=== PATIENT | male | born 1935 | race Caucasian/White ===

== ENCOUNTER 2017-01-25 10:44 | Inpatient (IN) | payer MEDICARE ==
--- NOTE | 2017-01-25 11:34 | EDM.PDOC ---
ED HPI GENERAL MEDICAL PROBLEM - General Chief Complaint: Gastrointestinal Problem Stated Complaint: RECTAL BLEED Time Seen by Provider: 01/25/17 10:44 Source of Information: Reports: Patient, Family History Limitations: Reports: No Limitations - History of Present Illness INITIAL COMMENTS - FREE TEXT/NARRATIVE: 81 y.o.w.m come to the ed due top bright red blood in his urine X 2 this am. One week ago0, he ate a lot of raspberries. He last colonoscopy was 01/17/2016 and found to be normal. He has h/o vertigo and feels dizzy at times. No N/V Medical Assistant Per Diem CP or any other acute medical issues at this time. Onset Date: 01/25/17 Onset Time: 07:00 Duration: Hour(s): Location: Reports: Abdomen Quality: Reports: Other (bright red blood pe rectum) Severity: Moderate Context: Reports: Other (Pt is on Coumadine ) Associated Symptoms: Reports: Other (Dizzy. H/O vertigo) Treatments EXPORT PACKER: Reports: Aspirin, Other Medication(s) (coumadine) Denies pain when asked Pain Score (Numeric/FACES): 0 - Related Data Allergies Allergy/AdvReac Type Severity Reaction Status Date / Time meclizine Allergy Confusion Verified 01/25/17 11:32 Penicillins Allergy Hives Verified 01/25/17 11:32 Home Meds: Home Meds Aspirin [Ecotrin] 81 mg PO DAILY 03/17/14 [History] Carvedilol [Coreg] 25 mg PO BID 03/17/14 [History] Nitroglycerin [Nitrostat] 0.4 mg SL ASDIRECTED PRN 03/17/14 [History] Omeprazole [Prilosec] 20 mg PO BEDTIME 03/17/14 [History] Potassium Chloride 10 meq PO BID 03/17/14 [History] Warfarin [Coumadin] 5 mg PO MOFR 03/17/14 [History] Amiodarone [Cordarone] 200 mg PO BEDTIME 07/19/15 [History] Mag Hydrox/Al Hydrox/Simeth [Maalox Maximum Strength Susp] 30 ml PO BID PRN [History] Warfarin Sodium 2.5 mg PO SUTUWETHSA 08/15/15 [History] glipiZIDE [Glucotrol] 5 mg PO DAILY 01/17/16 [History] Ferrous Sulfate 324 mg PO DAILY 01/25/17 [History] Furosemide 80 mg PO BID 01/25/17 [History] Hydrocortisone Valerate [Hydrocortisone Valerate 0.2% Crm] 1 applic TOP BID PRN 01/25/17 [History] Isosorbide Dinitrate 10 mg PO BID 01/25/17 [History] traMADol [Ultram] 50 mg PO QID PRN 01/25/17 [History] Past Medical History HEENT History: Reports: Allergic Rhinitis Other HEENT History: wears glasses Cardiovascular History: Reports: Afib, Arrhythmia, CAD, Cardiomyopathy, Heart Failure, High Cholesterol, Hypertension, [place], Other (See Below) Other Cardiovascular History: VT WITH CARDIOVERSION IN JUN 2015, ANTERIOR [place] 2006, [place] X3, NEAR SYNCOPE, PAROXYSMAL ATRIAL FIBRILLATION, VENTRICULAR TACHYCARDIA. Respiratory History: Reports: Sleep Apnea Gastrointestinal History: Reports: GERD Genitourinary History: Reports: Renal Disease Musculoskeletal History: Reports: Arthritis, Fracture Other Musculoskeletal History: R elbow fx, rib fx, Neurological History: Reports: CVA Endocrine/Metabolic History: Reports: Diabetes, Type II, Obesity/BMI 30+ Hematologic History: Reports: Anemia, Blood Transfusion(s) Dermatologic History: Reports: Eczema - Infectious Disease History Infectious Disease History: Reports: Chicken Pox, Measles, Mumps - Past Surgical History HEENT Surgical History: Reports: Eye Surgery Cardiovascular Surgical History: Reports: AICD, Coronary Artery Stent, Pacer GI Surgical History: Reports: Appendectomy, Cholecystectomy, Hernia Repair/Other Social & Family History - Tobacco Use Smoking Status *Q: Former Smoker Years of Tobacco use: 40 Packs/Tins Daily: 1 - Alcohol Use Days Per Week of Alcohol Use: 0 - Recreational Drug Use Recreational Drug Use: No ED ROS GENERAL - Review of Systems Review Of Systems: See Below Constitutional: Reports: No Symptoms HEENT: Reports: No Symptoms Respiratory: Reports: No Symptoms Cardiovascular: Reports: No Symptoms Endocrine: Reports: No Symptoms GI/Abdominal: Reports: Hematochezia : Reports: No Symptoms Musculoskeletal: Reports: No Symptoms Skin: Reports: No Symptoms Neurological: Reports: No Symptoms Psychiatric: Reports: No Symptoms Hematologic/Lymphatic: Reports: No Symptoms Immunologic: Reports: No Symptoms ED EXAM, GI/ABD - Physical Exam Exam: See Below Exam Limited By: No Limitations General Appearance: Alert, WD/WN, No Apparent Distress Eyes: Bilateral: Normal Appearance Ears: Normal External Exam Nose: Normal Inspection Throat/Mouth: Normal Inspection, Normal Lips Head: Atraumatic, Normocephalic Neck: Normal Inspection, Supple, Non-Tender, Full Range of Motion Respiratory/Chest: No Respiratory Distress, Lungs Clear Cardiovascular: Normal Peripheral Pulses, Regular Rate, Rhythm GI/Abdominal Exam: Other (brightred blood per rectum) (Male) Exam: No Hernia Rectal (Males) Exam: Bloody Stool (bight blood) Back Exam: Normal Inspection, Full Range of Motion Extremities: Normal Inspection, Normal Range of Motion Neurological: Alert, Oriented, CN II-XII Intact, Normal Cognition Psychiatric: Normal Affect, Normal Mood Skin Exam: Warm, Dry, Intact, Normal Color, No Rash Lymphatic: No Adenopathy EKG INTERPRETATION EKG Date: 01/25/17 Time: 12:15 Rhythm: NSR Rate (Beats/Min): 61 [place]: LAD-Left [place] Deviation P-Wave: Present QRS: Normal ST-T: Normal QT: Normal Comparison: NA - No Prior EKG Course - Vital Signs Text/Narrative:: 81 y.o.w.m come to the ed due top bright red blood in his urine X 2 this am. One week ago, he ate a lot of raspberries. He last colonoscopy was 01/17/2016 and found to be normal. He has h/o vertigo and feels dizzy at times. No N/V no CP or any other acute medical issues at this time. PE: bright red blood per rectum. Dizzy, Stool was bloody, quiac pos. BP 142/56 pulse 62 Labs: WBC 9.1. HGB 10.9 (07/27/2016 11.9) INR 2.07 Cr 2.2 (07/27/16 2.2 Na 138 K 4.3 BNP 45 Glc 234 Imaging: Not indicated Consultation: Dr. Vinson: Admit to Medicine Impression: Bright red blood per rectum. CAD, CRI, DNR/DNI DDx: Colitis, hemorrhoids, AV malformation Tx: FFP 2 units, Protonix Consultation: Dr. Aleman, Accepted the pt for admission, FFP 2 units Plan: Admit for obs Last Recorded V/S: Last Vital Signs Temp 37.1 C 01/26/17 05:35 Pulse 64 01/26/17 09:07 Resp 18 01/26/17 05:35 BP 128/58 L 01/26/17 09:07 Pulse Ox 95 01/26/17 09:50 - Orders/Labs/Meds Orders: Medication Orders Amiodarone HCl (Cordarone) 200 mg PO BEDTIME [facility] Last Admin: 01/25/17 20:08 Dose: 200 mg Carvedilol (Coreg) 25 mg PO BID [facility] Last Admin: 01/26/17 09:07 Dose: 25 mg Admin: 01/25/17 20:09 Dose: 25 mg Hydrocortisone Valerate (Hydrocortisone Valerate 0.2% Crm) 0 gm TOP BID PRN PRN Reason: DERMATITIS ON FOREHEAD Sodium Chloride (Normal Saline) 250 mls @ 100 mls/hr IV ASDIRECTED [facility] Last Admin: 01/25/17 15:39 Dose: 100 mls/hr Sodium Chloride (Normal Saline) 1,000 mls @ 100 mls/hr IV ASDIRECTED [facility] Last Admin: 01/26/17 15:49 Dose: 100 mls/hr Infusion: 01/26/17 15:34 Dose: 100 mls/hr Admin: 01/26/17 05:34 Dose: 100 mls/hr Infusion: 01/26/17 05:34 Dose: 100 mls/hr Admin: 01/25/17 19:36 Dose: 100 mls/hr Sodium Chloride (Normal Saline) 250 mls @ 100 mls/hr IV ASDIRECTED [facility] Isosorbide Dinitrate (Isordil) 10 mg PO BID [facility] Last Admin: 01/26/17 09:08 Dose: 10 mg Admin: 01/25/17 20:10 Dose: 10 mg Nitroglycerin (Nitrostat) 0.4 mg SL ASDIRECTED PRN PRN Reason: Chest Pain Mag Hydrox/Al Hydrox /Simeth [Maalox Maximum Strength] * Own Med * 30 ml PO BID PRN PRN Reason: Heartburn Omeprazole (Omeprazole) 20 mg PO BEDTIME [facility] Last Admin: 01/25/17 20:11 Dose: 20 mg Potassium Chloride (Klor-Con 10) 10 meq PO BID [facility] Last Admin: 01/26/17 09:08 Dose: 10 meq Admin: 01/25/17 20:11 Dose: 10 meq Tramadol HCl (Ultram) 50 mg PO QID PRN PRN Reason: Pain (moderate 4-6) Labs: Laboratory Tests 08/04/17 08/04/17 08/04/17 Range/Units 11:19 11:19 11:19 WBC 9.1 (4.5-12.0) X10-3/uL RBC 3.86 L (4.30-5.75) x10(6)uL Hgb 10.9 L (11.5-15.5) g/dL Hct 33.4 (30.0-51.3) % MCV 86.6 (80-96) fL MCH 28.2 (27.7-33.6) pg MCHC 32.5 (32.2-35.4) g/dL RDW 13.9 (11.5-15.5) % Plt Count 186 (125-369) X10(3)uL MPV 10.2 (7.4-10.4) fL Neut % (Auto) 74.4 (46-82) % Lymph % (Auto) 12.3 L (13-37) % [place] % (Auto) 11.2 (4-12) % Eos % (Auto) 2 (1.0-5.0) % Baso % (Auto) 1 (0-2) % Neut # (Auto) 6.8 (1.6-8.3) # Lymph # (Auto) 1.1 (0.6-5.0) # [place] # (Auto) 1.0 (0.0-1.3) # Eos # (Auto) 0.1 (0.0-0.8) # Baso # (Auto) 0.1 (0.0-0.2) # PT 21.2 H (8.7-11.1) INR 2.07 H (0.89-1.13) Sodium 138 (135-145) mmol/L Potassium 4.3 (3.5-5.3) mmol/L Chloride 99 L (100-110) mmol/L Carbon Dioxide 30 H (23-29) mmol/L BUN 28 H (8-23) mg/dL Creatinine 2.2 H* (0.6-1.3) mg/dL Est Cr Clr Drug Dosing TNP Estimated GFR (MDRD) 29 L (>60) BUN/Creatinine Ratio 12.7 (9-20) Glucose 245 H (80-116) mg/dL Calcium 8.6 (8.6-10.2) mg/dL B-Natriuretic Peptide (0-100) pg/mL 01/25/17 Range/Units 11:19 WBC (4.5-12.0) X10-3/uL RBC (4.30-5.75) x10(6)uL Hgb (11.5-15.5) g/dL Hct (30.0-51.3) % MCV (80-96) fL MCH (27.7-33.6) pg MCHC (32.2-35.4) g/dL RDW (11.5-15.5) % Plt Count (125-369) X10(3)uL MPV (7.4-10.4) fL Neut % (Auto) (46-82) % Lymph % (Auto) (13-37) % [place] % (Auto) (4-12) % Eos % (Auto) (1.0-5.0) % Baso % (Auto) (0-2) % Neut # (Auto) (1.6-8.3) # Lymph # (Auto) (0.6-5.0) # [place] # (Auto) (0.0-1.3) # Eos # (Auto) (0.0-0.8) # Baso # (Auto) (0.0-0.2) # PT (8.7-11.1) INR (0.89-1.13) Sodium (135-145) mmol/L Potassium (3.5-5.3) mmol/L Chloride (100-110) mmol/L Carbon Dioxide (23-29) mmol/L BUN (8-23) mg/dL Creatinine (0.6-1.3) mg/dL Est Cr Clr Drug Dosing Estimated GFR (MDRD) (>60) BUN/Creatinine Ratio (9-20) Glucose (80-116) mg/dL Calcium (8.6-10.2) mg/dL B-Natriuretic Peptide 98 (0-100) pg/mL Meds: Medications Generic Name Dose Route Start Last Admin Trade Name Freq PRN Reason Stop Dose Admin Amiodarone HCl 200 mg 01/25/17 21:00 01/25/17 20:08 Cordarone PO 200 mg BEDTIME AP Administration Carvedilol 25 mg 01/25/17 21:00 01/26/17 09:07 Coreg PO 25 mg BID AP Administration Hydrocortisone Valerate 0 gm 01/25/17 17:51 Hydrocortisone Valerate 0.2% Crm TOP BID PRN DERMATITIS ON FOREHEAD Sodium Chloride 250 mls @ 100 mls/hr 01/25/17 12:15 01/25/17 15:39 Normal Saline IV 100 mls/hr ASDIRECTED AP Administration Sodium Chloride 1,000 mls @ 100 mls/hr 01/25/17 18:00 01/26/17 15:49 Normal Saline IV 100 mls/hr ASDIRECTED AP Administration Sodium Chloride 250 mls @ 100 mls/hr 01/26/17 08:45 Normal Saline IV ASDIRECTED AP Isosorbide Dinitrate 10 mg 01/25/17 21:00 01/26/17 09:08 Isordil PO 10 mg BID AP Administration Nitroglycerin 0.4 mg 01/26/17 08:06 Nitrostat SL ASDIRECTED PRN Chest Pain Mag Hydrox/Al Hydrox 30 ml 01/25/17 17:51 /Simeth [Maalox PO Maximum Strength] * BID PRN Own Med * Heartburn Omeprazole 20 mg 01/25/17 21:00 01/25/17 20:11 Omeprazole PO 20 mg BEDTIME AP Administration Potassium Chloride 10 meq 01/25/17 21:00 01/26/17 09:08 Klor-Con 10 PO 10 meq BID AP Administration Tramadol HCl 50 mg 01/25/17 17:51 Ultram PO QID PRN Pain (moderate 4-6) Discontinued Medications Generic Name Dose Route Start Last Admin Trade Name Freq PRN Reason Stop Dose Admin Bisacodyl 10 mg 01/26/17 14:00 01/26/17 13:58 Dulcolax PO 01/26/17 14:01 10 mg ONETIME ONE Administration Ferrous Sulfate 325 mg 01/26/17 09:00 Ferrous Sulfate PO DAILY [facility] Nitroglycerin 0.4 mg 01/25/17 17:51 Nitrostat SL ASDIRECTED PRN Chest Pain Pantoprazole Sodium 40 mg 01/25/17 14:20 01/25/17 15:27 Protonix Iv IVPUSH 01/25/17 14:21 40 mg ONETIME ONE Administration Polyethylene Glycol 238 gm 01/26/17 08:33 01/26/17 13:16 Miralax PO 01/26/17 08:34 Not Given ONETIME ONE Polyethylene Glycol 238 gm 01/26/17 12:00 01/26/17 12:56 Miralax PO 01/26/17 12:01 238 gm ONETIME ONE Administration Departure - Departure Time of Disposition: 13:00 Disposition: Admitted As Inpatient 65 Condition: Fair Clinical Impression: Rectal bleed - Discharge Information
[2017-01-25] MEDS ORDERED: Sodium Chloride 0.9% 250 ML IV SCH (12:15)
[2017-01-25] MEDS ORDERED: Pantoprazole 40 MG Vial IVPUSH ONE (14:20)
--- NOTE | 2017-01-25 17:50 | PCM.HP ---
H&P History of Present Illness - General Date of Service: 01/25/17 Source of Information: Patient History Limitations: Reports: No Limitations - History of Present Illness Initial Comments - Free Text/Narative: This is an 81-year-old male patient says he started having bright red rectal bleeding yesterday and today. He says his blood was coming out of his rectum without stool. He came into the ER and got admitted. He denies dizziness, fatigue, lightheadedness, abdominal pain, nausea, vomiting, constipation, diarrhea. Patient believes he had a colonoscopy a year and a half ago. He denies chest pain, shortness of breath. - Related Data Allergies/Adverse Reactions: Allergies Allergy/AdvReac Type Severity Reaction Status Date / Time meclizine Allergy Confusion Verified 01/25/17 11:32 Penicillins Allergy Hives Verified 01/25/17 11:32 Home Medications: Home Meds Aspirin [Ecotrin] 81 mg PO DAILY 03/17/14 [History] Carvedilol [Coreg] 25 mg PO BID 03/17/14 [History] Nitroglycerin [Nitrostat] 0.4 mg SL ASDIRECTED PRN 03/17/14 [History] Omeprazole [Prilosec] 20 mg PO BEDTIME 03/17/14 [History] Potassium Chloride 10 meq PO BID 03/17/14 [History] Warfarin [Coumadin] 5 mg PO MOFR 03/17/14 [History] Amiodarone [Cordarone] 200 mg PO BEDTIME 07/19/15 [History] Mag Hydrox/Al Hydrox/Simeth [Maalox Maximum Strength Susp] 30 ml PO BID PRN [History] Warfarin Sodium 2.5 mg PO SUTUWETHSA 08/15/15 [History] glipiZIDE [Glucotrol] 5 mg PO DAILY 01/17/16 [History] Ferrous Sulfate 324 mg PO DAILY 01/25/17 [History] Furosemide 80 mg PO BID 01/25/17 [History] Hydrocortisone Valerate [Hydrocortisone Valerate 0.2% Crm] 1 applic TOP BID PRN 01/25/17 [History] Isosorbide Dinitrate 10 mg PO BID 01/25/17 [History] traMADol [Ultram] 50 mg PO QID PRN 01/25/17 [History] Past Medical History HEENT History: Reports: Allergic Rhinitis Other HEENT History: wears glasses Cardiovascular History: Reports: Afib, Arrhythmia, CAD, Cardiomyopathy, Heart Failure, High Cholesterol, Hypertension, [place], Other (See Below) Other Cardiovascular History: VT WITH CARDIOVERSION IN JUN 2015, ANTERIOR [place] 2006, [place] X3, NEAR SYNCOPE, PAROXYSMAL ATRIAL FIBRILLATION, VENTRICULAR TACHYCARDIA. Respiratory History: Reports: Sleep Apnea Other Respiratory History: pt uses oxygen Gastrointestinal History: Reports: GERD Genitourinary History: Reports: Renal Disease Musculoskeletal History: Reports: Arthritis, Fracture Other Musculoskeletal History: R elbow fx, rib fx, Neurological History: Reports: CVA Endocrine/Metabolic History: Reports: Diabetes, Type II, Obesity/BMI 30+ Hematologic History: Reports: Anemia, Blood Transfusion(s) Dermatologic History: Reports: Eczema - Infectious Disease History Infectious Disease History: Reports: Chicken Pox, Measles, Mumps - Past Surgical History HEENT Surgical History: Reports: Eye Surgery Cardiovascular Surgical History: Reports: AICD, Coronary Artery Stent, Pacer GI Surgical History: Reports: Appendectomy, Cholecystectomy, Hernia Repair/Other Social & Family History - Family History Family Medical History: Noncontributory - Tobacco Use Smoking Status *Q: Former Smoker Years of Tobacco use: 40 Packs/Tins Daily: 1 Used Tobacco, but Quit: Yes Month Tobacco Last Used: January Second Hand Smoke Exposure: No - Caffeine Use Caffeine Use: Reports: None - Alcohol Use Days Per Week of Alcohol Use: 0 - Recreational Drug Use Recreational Drug Use: No H&P Review of Systems - Review of Systems: Review Of Systems: See Below General: Reports: No Symptoms, Weight Gain Pulmonary: Reports: No Symptoms Cardiovascular: Reports: No Symptoms Gastrointestinal: Reports: Bloody Stool. Denies: Abdominal Pain, Black Stool, Diarrhea, Decreased Appetite, Nausea, Vomiting Genitourinary: Reports: No Symptoms Musculoskeletal: Reports: No Symptoms Skin: Reports: No Symptoms Psychiatric: Reports: No Symptoms Neurological: Reports: No Symptoms Hematologic/Lymphatic: Reports: No Symptoms Immunologic: Reports: No Symptoms Exam - Exam Exam: See Below - Vital Signs Vital Signs: Last Vital Signs Temp 98.3 F 01/25/17 16:53 Pulse 57 L 01/25/17 15:50 Resp 20 01/25/17 16:53 BP 111/61 01/25/17 16:53 Pulse Ox 97 01/25/17 16:53 Weight: 207 lb - Exam General: Alert, Oriented, Cooperative HEENT: Conjunctiva Clear, Hearing Intact, Mucosa Moist & [place], Posterior Pharynx Clear, TMs Clear. No: Abnormal Pupils, Rhinitis Neck: Supple, Trachea Midline. No: Carotid Bruit Lungs: Clear to Auscultation, Normal Respiratory Effort. No: Crackles, Rales, Rhonchi Cardiovascular: Regular Rate, Irregular Rhythm GI/Abdominal Exam: Normal Bowel Sounds, Soft, Non-Tender, No Distention Extremities: Normal Inspection, Normal Range of Motion Skin: Warm, Dry, Intact Neurological: Normal Speech, Normal Tone Neuro Extensive - Mental Status: Alert, Oriented x3, Normal Mood/Affect, Normal Cognition Psychiatric: Alert, Normal Affect, Normal Mood - Patient Data Lab Results Last 24 hrs: Laboratory Results - last 24 hr 01/25/17 Range/Units 13:27 Blood Type O POSITIVE Gel Antibody Screen Negative Result Diagrams: 01/25/17 11:19 01/25/17 11:19 *Q Meaningful Use (ADM) - VTE *Q VTE Criteria *Q: - Stroke *Q Stroke Criteria *Q: - AMI *Q AMI Criteria *Q: - Problem List (1) Lower GI bleed SNOMED Code(s): 20278220 ICD Code: K92.2 - GASTROINTESTINAL HEMORRHAGE, UNSPECIFIED Status: Acute Priority: High Current Visit: Yes (2) Atrial fibrillation SNOMED Code(s): 76095275 ICD Code: I48.91 - UNSPECIFIED ATRIAL FIBRILLATION Status: Acute Priority : Low Current Visit: Yes (3) CHF (congestive heart failure) SNOMED Code(s): 13554330 ICD Code: I50.9 - HEART FAILURE, UNSPECIFIED Status: Acute Priority: Low Current Visit: Yes (4) Coronary artery disease SNOMED Code(s): 76524293 ICD Code: I25.10 - ATHSCL HEART DISEASE OF [place] CORONARY ARTERY W/O ANG PCTRS Status: Acute Priority: Low Current Visit: Yes (5) Congestive cardiomyopathy SNOMED Code(s): 527471066 ICD Code: I42.0 - DILATED CARDIOMYOPATHY Status: Acute Priority: Low Current Visit: No Problem Details: Chronic congestive cardiomyopathy. An echocardiogram is scheduled for tomorrow at 10:00 am, and will follow up at that time. (6) Palliative care status SNOMED Code(s): 552002830 ICD Code: Z51.5 - ENCOUNTER FOR PALLIATIVE CARE Status: Acute Current Visit: Yes Problem List Initiated/Reviewed/Updated: Yes Orders Last 24hrs: Active Orders 24 hr Category Date Time Status CBC WITH AUTO DIFF [HEME] Routine Lab 01/25/17 17:32 Ordered FRESH FROZEN PLASMA [BBK] Routine Lab 01/25/17 13:27 Results INR,PT,PROTHROMBIN TIME [COAG] DAILY Lab 01/25/17 17:45 Ordered TYPE AND SCREEN [BBK] Routine Lab 01/25/17 13:27 Results Medication Orders Sodium Chloride (Normal Saline) 250 mls @ 100 mls/hr IV ASDIRECTED AP Last Admin: 01/25/17 15:39 Dose: 100 mls/hr Assessment/Plan Comment:: . Admit for observation. 2. Orders were rewritten the patient is eating and has an IV but no fluids running. Start IV fluids. 3. Repeat CBC and INR both now and in the a.m. 4. Consult Dr. Vinson surgeon. 5. Up ad ant. 6. Patient is eating so he is to be on diabetic diet. May consider going to clear fluid or NPO.
[2017-01-25] MEDS ORDERED: HYDROCORTISONE VALERATE 0.2% TOP PRN (17:51)
[2017-01-25] MEDS ORDERED: NITROGLYCERIN 0.4 MG SL PRN (17:51)
[2017-01-25] MEDS ORDERED: traMADol 50 MG Tab PO PRN (17:51)
[2017-01-25] MEDS ORDERED: MAG HYDROX PO PRN (17:51)
[2017-01-25] MEDS ORDERED: SIMETH PO PRN (17:51)
[2017-01-25] MEDS ORDERED: AL HYDROX PO PRN (17:51)
--- NOTE | 2017-01-25 17:52 | PCM.CONS ---
H&P History of Present Illness - General Date of Service: 01/25/17 Source of Information: Patient - History of Present Illness Initial Comments - Free Text/Narative: 81 yo wm with a hx of some bright red blood per rectum. Had some bleeding with bowel movements yesterday and today. No pain. Last c scope was last December where was found to have some sigmoid diverticulosis. Does have a hx of anemia in the past. - Related Data Allergies/Adverse Reactions: Allergies Allergy/AdvReac Type Severity Reaction Status Date / Time meclizine Allergy Confusion Verified 01/25/17 11:32 Penicillins Allergy Hives Verified 01/25/17 11:32 Home Medications: Home Meds Aspirin [Ecotrin] 81 mg PO DAILY 03/17/14 [History] Carvedilol [Coreg] 25 mg PO BID 03/17/14 [History] Nitroglycerin [Nitrostat] 0.4 mg SL ASDIRECTED PRN 03/17/14 [History] Omeprazole [Prilosec] 20 mg PO BEDTIME 03/17/14 [History] Potassium Chloride 10 meq PO BID 03/17/14 [History] Warfarin [Coumadin] 5 mg PO MOFR 03/17/14 [History] Amiodarone [Cordarone] 200 mg PO BEDTIME 07/19/15 [History] Mag Hydrox/Al Hydrox/Simeth [Maalox Maximum Strength Susp] 30 ml PO BID PRN [History] Warfarin Sodium 2.5 mg PO SUTUWETHSA 08/15/15 [History] glipiZIDE [Glucotrol] 5 mg PO DAILY 01/17/16 [History] Ferrous Sulfate 324 mg PO DAILY 01/25/17 [History] Furosemide 80 mg PO BID 01/25/17 [History] Hydrocortisone Valerate [Hydrocortisone Valerate 0.2% Crm] 1 applic TOP BID PRN 01/25/17 [History] Isosorbide Dinitrate 10 mg PO BID 01/25/17 [History] traMADol [Ultram] 50 mg PO QID PRN 01/25/17 [History] Past Medical History HEENT History: Reports: Allergic Rhinitis Other HEENT History: wears glasses Cardiovascular History: Reports: Afib, Arrhythmia, CAD, Cardiomyopathy, Heart Failure, High Cholesterol, Hypertension, MO, Other (See Below) Other Cardiovascular History: VT WITH CARDIOVERSION IN JUN 2015, ANTERIOR MO 2006, MO X3, NEAR SYNCOPE, PAROXYSMAL ATRIAL FIBRILLATION, VENTRICULAR TACHYCARDIA. Respiratory History: Reports: Sleep Apnea Other Respiratory History: pt uses oxygen Gastrointestinal History: Reports: GERD Genitourinary History: Reports: Renal Disease Musculoskeletal History: Reports: Arthritis, Fracture Other Musculoskeletal History: R elbow fx, rib fx, Neurological History: Reports: CVA Endocrine/Metabolic History: Reports: Diabetes, Type II, Obesity/BMI 30+ Hematologic History: Reports: Anemia, Blood Transfusion(s) Dermatologic History: Reports: Eczema - Infectious Disease History Infectious Disease History: Reports: Chicken Pox, Measles, Mumps - Past Surgical History HEENT Surgical History: Reports: Eye Surgery Cardiovascular Surgical History: Reports: AICD, Coronary Artery Stent, Pacer GI Surgical History: Reports: Appendectomy, Cholecystectomy, Hernia Repair/Other Social & Family History - Family History Family Medical History: Noncontributory - Tobacco Use Smoking Status *Q: Former Smoker Years of Tobacco use: 40 Packs/Tins Daily: 1 Used Tobacco, but Quit: Yes Month Tobacco Last Used: January Second Hand Smoke Exposure: No - Caffeine Use Caffeine Use: Reports: None - Alcohol Use Days Per Week of Alcohol Use: 0 - Recreational Drug Use Recreational Drug Use: No H&P Review of Systems - Review of Systems: Review Of Systems: See Below General: Reports: No Symptoms Pulmonary: Reports: No Symptoms Cardiovascular: Reports: No Symptoms Gastrointestinal: Reports: Hematochezia Exam - Exam Exam: See Below - Vital Signs Vital Signs: Last Vital Signs Temp 36.8 C 01/25/17 16:53 Pulse 57 L 01/25/17 15:50 Resp 20 01/25/17 16:53 BP 111/61 01/25/17 16:53 Pulse Ox 97 01/25/17 16:53 Weight: 93.894 kg - Exam General: Alert, Oriented Lungs: Clear to Auscultation, Normal Respiratory Effort Cardiovascular: Regular Rate, Regular Rhythm GI/Abdominal Exam: Normal Bowel Sounds, Soft, Non-Tender, No Organomegaly Rectal (Males) Exam: Deferred Back Exam: Normal Inspection, Full Range of Motion - Patient Data Lab Results Last 24 hrs: Laboratory Results - last 24 hr 01/25/17 Range/Units 13:27 Blood Type O POSITIVE Gel Antibody Screen Negative Result Diagrams: 01/25/17 11:19 08/04/17 11:19 Consult PN Assessment/Plan Procedures: Procedures ANESTH LOW INTESTINE SCOPE (01/18/16) ASSAY OF CK (CPK) (07/09/15) ASSAY OF MAGNESIUM (08/15/15) ASSAY OF NATRIURETIC PEPTIDE (08/06/16) ASSAY OF PHOSPHORUS (08/06/15) ASSAY OF TROPONIN QUANT (08/06/16) ASSAY THYROID STIM HORMONE (08/15/15) CHEST X-RAY 1 VIEW FRONTAL (08/06/15) CHEST X-RAY 2VW FRONTAL&LATL (08/06/16) COMPLETE CBC AUTOMATED (08/26/15) COMPLETE CBC W/AUTO DIFF WBC (08/06/16) COMPREHEN METABOLIC PANEL (08/06/16) CREATINE MB FRACTION (07/09/15) CT HEAD/BRAIN W/O DYE (07/27/15) DIAGNOSTIC COLONOSCOPY (01/18/16) EGD BIOPSY SINGLE/MULTIPLE (01/18/16) ELECTROCARDIOGRAM TRACING (08/06/16) EMERGENCY DEPT VISIT (08/06/16) EMERGENCY DEPT VISIT (08/26/15) EMERGENCY DEPT VISIT (08/06/15) EMERGENCY DEPT VISIT (07/27/15) EMERGENCY DEPT VISIT (07/27/15) EMERGENCY DEPT VISIT (07/19/15) EMERGENCY DEPT VISIT (07/09/15) EMERGENCY DEPT VISIT (02/23/15) EMERGENCY DEPT VISIT (03/17/14) FIBRIN DEGRADATION QUANT (08/15/15) GLYCOSYLATED HEMOGLOBIN TEST (07/27/15) IMMUNOHISTO ANTB 1ST STAIN (01/18/16) METABOLIC PANEL TOTAL CA (08/26/15) OBSERVATION CARE DISCHARGE (08/15/15) PROTHROMBIN TIME (08/06/16) ROUTINE VENIPUNCTURE (08/06/16) THER/PROPH/DIAG INJ IV PUSH (07/09/15) THROMBOPLASTIN TIME PARTIAL (08/06/15) TISSUE EXAM BY PATHOLOGIST (01/18/16) TTE W/DOPPLER COMPLETE (08/15/15) URINALYSIS AUTO W/SCOPE (08/15/15) Problem List Initiated/Reviewed/Updated: Yes My Orders Last 24 Hours: clear liquids in the am. will reassess in the am. bowel prep and c scope in indicated.
[2017-01-25] MEDS: Sodium Chloride 0.9% 1,000 ML IV SCH (19:36)
[2017-01-25] MEDS: AMIODARONE 200 MG PO SCH (20:08)
[2017-01-25] MEDS: CARVEDILOL 25 MG PO SCH (20:09)
[2017-01-25] MEDS: ISOSORBIDE DINITRATE 5 MG PO SCH (20:10)
[2017-01-25] MEDS: OMEPRAZOLE 20 MG PO SCH (20:11)
[2017-01-25] MEDS: POTASSIUM CHLORIDE 10 MEQ PO SCH (20:11)
[2017-01-26] MEDS: Sodium Chloride 0.9% 1,000 ML IV SCH ×2 (05:34→15:49)
[2017-01-26] MEDS ORDERED: Nitroglycerin 0.4 MG Tab.SL SL PRN (08:06)
[2017-01-26] MEDS ORDERED: Polyethylene Glycol 3350 Powder 17 GM Packet PO ONE (08:33)
--- NOTE | 2017-01-26 08:38 | PCM.SURGPN ---
- General Info Date of Service: 01/26/17 - Review of Systems Gastrointestinal: Reports: Other (still passing blood per rectum slight drop in his Hgb. ) - Patient Data Vitals - Most Recent: Last Vital Signs Temp 37.1 C 01/26/17 05:35 Pulse 68 01/26/17 05:35 Resp 18 01/26/17 05:35 BP 134/76 01/26/17 05:35 Pulse Ox 99 01/26/17 05:35 Weight - Most Recent: 93.894 kg I&O - Last 24 Hours: Intake & Output 01/25/17 01/26/17 01/26/17 22:59 06:59 14:59 Intake Total 883 Output Total 375 Balance 508 Lab Results Last 24 Hrs: Laboratory Results - last 24 hr 01/25/17 01/25/17 01/25/17 Range/Units 13:27 17:48 17:48 WBC 8.2 (4.5-12.0) X10-3/uL RBC 3.82 L (4.30-5.75) x10(6)uL Hgb 10.7 L (11.5-15.5) g/dL Hct 33.0 (30.0-51.3) % MCV 86.4 (80-96) fL MCH 28.0 (27.7-33.6) pg MCHC 32.4 (32.2-35.4) g/dL RDW 14.0 (11.5-15.5) % Plt Count 198 (125-369) X10(3)uL MPV 10.1 (7.4-10.4) fL Neut % (Auto) (46-82) % Lymph % (Auto) (13-37) % [place] % (Auto) (4-12) % Eos % (Auto) (1.0-5.0) % Baso % (Auto) (0-2) % Neut # (Auto) (1.6-8.3) # Lymph # (Auto) (0.6-5.0) # [place] # (Auto) (0.0-1.3) # Eos # (Auto) (0.0-0.8) # Baso # (Auto) (0.0-0.2) # Add Manual Diff Yes Neutrophils % (Manual) 68 (46-82) % Lymphocytes % (Manual) 16 (13-37) % Monocytes % (Manual) 14 H (4-12) % Eosinophils % (Manual) 1 (0-5) % Metamyelocytes % 1 H (0-0) % PT 18.1 H (8.7-11.1) INR 1.77 H (0.89-1.13) Blood Type O POSITIVE Gel Antibody Screen Negative 01/26/17 01/26/17 Range/Units 05:50 05:50 WBC 9.3 (4.5-12.0) X10-3/uL RBC 3.28 L (4.30-5.75) x10(6)uL Hgb 9.0 L (11.5-15.5) g/dL Hct 28.5 L (30.0-51.3) % MCV 87.0 (80-96) fL MCH 27.5 L (27.7-33.6) pg MCHC 31.6 L (32.2-35.4) g/dL RDW 14.1 (11.5-15.5) % Plt Count 195 (125-369) X10(3)uL MPV 9.7 (7.4-10.4) fL Neut % (Auto) 71.5 (46-82) % Lymph % (Auto) 14.2 (13-37) % [place] % (Auto) 11.9 (4-12) % Eos % (Auto) 2 (1.0-5.0) % Baso % (Auto) 1 (0-2) % Neut # (Auto) 6.6 (1.6-8.3) # Lymph # (Auto) 1.3 (0.6-5.0) # [place] # (Auto) 1.1 (0.0-1.3) # Eos # (Auto) 0.2 (0.0-0.8) # Baso # (Auto) 0.1 (0.0-0.2) # Add Manual Diff Neutrophils % (Manual) (46-82) % Lymphocytes % (Manual) (13-37) % Monocytes % (Manual) (4-12) % Eosinophils % (Manual) (0-5) % Metamyelocytes % (0-0) % PT 17.3 H (8.7-11.1) INR 1.69 H (0.89-1.13) Blood Type Gel Antibody Screen [place] Results Last 24 Hrs: Microbiology 01/25/17 12:20 Stool Occult Blood (RAYMUNDO) - Final Stool / Feces Med Orders - Current: Current Medications Amiodarone HCl (Cordarone) 200 mg PO BEDTIME [facility] Last Admin: 01/25/17 20:08 Dose: 200 mg Bisacodyl (Dulcolax) 10 mg PO ONETIME ONE Stop: 01/26/17 08:34 Carvedilol (Coreg) 25 mg PO BID [facility] Last Admin: 01/25/17 20:09 Dose: 25 mg Hydrocortisone Valerate (Hydrocortisone Valerate 0.2% Crm) 0 gm TOP BID PRN PRN Reason: DERMATITIS ON FOREHEAD Sodium Chloride (Normal Saline) 250 mls @ 100 mls/hr IV ASDIRECTED [facility] Last Admin: 01/25/17 15:39 Dose: 100 mls/hr Sodium Chloride (Normal Saline) 1,000 mls @ 100 mls/hr IV ASDIRECTED [facility] Last Admin: 01/26/17 05:34 Dose: 100 mls/hr Isosorbide Dinitrate (Isordil) 10 mg PO BID [facility] Last Admin: 01/25/17 20:10 Dose: 10 mg Nitroglycerin (Nitrostat) 0.4 mg SL ASDIRECTED PRN PRN Reason: Chest Pain Mag Hydrox/Al Hydrox /Simeth [Maalox Maximum Strength] * Own Med * 30 ml PO BID PRN PRN Reason: Heartburn Omeprazole (Omeprazole) 20 mg PO BEDTIME [facility] Last Admin: 01/25/17 20:11 Dose: 20 mg Potassium Chloride (Klor-Con 10) 10 meq PO BID [facility] Last Admin: 01/25/17 20:11 Dose: 10 meq Tramadol HCl (Ultram) 50 mg PO QID PRN PRN Reason: Pain (moderate 4-6) Discontinued Medications Ferrous Sulfate (Ferrous Sulfate) 325 mg PO DAILY [facility] Nitroglycerin (Nitrostat) 0.4 mg SL ASDIRECTED PRN PRN Reason: Chest Pain Pantoprazole Sodium (Protonix Iv) 40 mg IVPUSH ONETIME ONE Stop: 01/25/17 14:21 Last Admin: 01/25/17 15:27 Dose: 40 mg Polyethylene Glycol (Miralax) 238 gm PO ONETIME ONE Stop: 01/26/17 08:34 - Exam General: Alert, Oriented Lungs: Clear to Auscultation, Normal Respiratory Effort Cardiovascular: Regular Rate, Regular Rhythm GI/Abdominal Exam: Normal Bowel Sounds, Soft, Non-Tender, No Organomegaly - Problem List & Annotations (1) Lower GI bleed SNOMED Code(s): 64741863 Code(s): K92.2 - GASTROINTESTINAL HEMORRHAGE, UNSPECIFIED Status: Acute Priority: High Current Visit: Yes - Problem List Review Problem List Initiated/Reviewed/Updated: Yes - My Orders Last 24 Hours: Active Orders 24 hr Category Date Time Status Verify Patient Consent Obtain [RC] ASDIRECTED Care 01/26/17 08:34 Ordered Clear Liquid Diet [DIET] Diet 01/26/17 Breakfast Active Amiodarone [Cordarone] Med 01/25/17 21:00 Active 200 mg PO BEDTIME Bisacodyl [Dulcolax] Med 01/26/17 08:33 Once 10 mg PO ONETIME ONE Carvedilol [Coreg] Med 01/25/17 21:00 Active 25 mg PO BID Hydrocortisone Valerate [Hydrocortisone Valerate 0.2% Med 01/25/17 17:51 Active Crm] 0 gm TOP BID PRN Isosorbide Dinitrate [Isordil] Med 01/25/17 21:00 Active 10 mg PO BID Mag Hydrox/Al Hydrox/Simeth [Maalox Maximum Strength Med 01/25/17 17:51 Active Susp] 30 ml PO BID PRN Nitroglycerin [Nitrostat] Med 01/26/17 08:06 Active 0.4 mg SL ASDIRECTED PRN Omeprazole Med 01/25/17 21:00 Active 20 mg PO BEDTIME Polyethylene Glycol 3350 [MiraLAX] Med 01/26/17 12:00 Once 238 gm PO ONETIME ONE Potassium Chloride [Klor-Con 10] Med 01/25/17 21:00 Active 10 meq PO BID Sodium Chloride 0.9% [Normal Saline] 1,000 ml Med 01/25/17 18:00 Active IV ASDIRECTED traMADol [Ultram] Med 01/25/17 17:51 Active 50 mg PO QID PRN Medication Orders Amiodarone HCl (Cordarone) 200 mg PO BEDTIME [facility] Last Admin: 01/25/17 20:08 Dose: 200 mg Bisacodyl (Dulcolax) 10 mg PO ONETIME ONE Stop: 01/26/17 08:34 Carvedilol (Coreg) 25 mg PO BID [facility] Last Admin: 01/25/17 20:09 Dose: 25 mg Hydrocortisone Valerate (Hydrocortisone Valerate 0.2% Crm) 0 gm TOP BID PRN PRN Reason: DERMATITIS ON FOREHEAD Sodium Chloride (Normal Saline) 250 mls @ 100 mls/hr IV ASDIRECTED [facility] Last Admin: 01/25/17 15:39 Dose: 100 mls/hr Sodium Chloride (Normal Saline) 1,000 mls @ 100 mls/hr IV ASDIRECTED [facility] Last Admin: 01/26/17 05:34 Dose: 100 mls/hr Infusion: 01/26/17 05:34 Dose: 100 mls/hr Admin: 01/25/17 19:36 Dose: 100 mls/hr Isosorbide Dinitrate (Isordil) 10 mg PO BID [facility] Last Admin: 01/25/17 20:10 Dose: 10 mg Nitroglycerin (Nitrostat) 0.4 mg SL ASDIRECTED PRN PRN Reason: Chest Pain Mag Hydrox/Al Hydrox /Simeth [Maalox Maximum Strength] * Own Med * 30 ml PO BID PRN PRN Reason: Heartburn Omeprazole (Omeprazole) 20 mg PO BEDTIME [facility] Last Admin: 01/25/17 20:11 Dose: 20 mg Potassium Chloride (Klor-Con 10) 10 meq PO BID [facility] Last Admin: 01/25/17 20:11 Dose: 10 meq Tramadol HCl (Ultram) 50 mg PO QID PRN PRN Reason: Pain (moderate 4-6) - Assessment Assessment (Free Text/Narrative):: will proceed with c scope in am - Plan Plan (Free Text/Narrative):: porcedure and risks explained to the pt to include bleeding infection and perforation. asks us to proceed.
[2017-01-26] MEDS ORDERED: Sodium Chloride 0.9% 250 ML IV SCH (08:45)
[2017-01-26] MEDS ORDERED: FERROUS SULFATE 325 MG PO SCH (09:00)
[2017-01-26] MEDS: CARVEDILOL 25 MG PO SCH ×2 (09:07→20:27)
[2017-01-26] MEDS: ISOSORBIDE DINITRATE 5 MG PO SCH ×2 (09:08→20:28)
[2017-01-26] MEDS: POTASSIUM CHLORIDE 10 MEQ PO SCH ×2 (09:08→20:28)
--- NOTE | 2017-01-26 09:34 | PCM.PN ---
- General Info Date of Service: 01/26/17 Admission Dx/Problem (Free Text): Patient states that he had a couple hematochezia stools since last night.. He denies abdominal pain, shortness of breath. He says he feels a little dizzy but that's when he feels at home also. - Patient Data Vitals - Most Recent: Last Vital Signs Temp 98.8 F 01/26/17 05:35 Pulse 64 01/26/17 09:07 Resp 18 01/26/17 05:35 BP 128/58 L 01/26/17 09:07 Pulse Ox 99 01/26/17 05:35 Weight - Most Recent: 207 lb I&O - Last 24 Hours: Intake & Output 01/25/17 01/26/17 01/26/17 22:59 06:59 14:59 Intake Total 883 Output Total 375 Balance 508 Lab Results Last 24 Hours: Laboratory Results - last 24 hr 01/25/17 01/25/17 01/25/17 Range/Units 13:27 17:48 17:48 WBC 8.2 (4.5-12.0) X10-3/uL RBC 3.82 L (4.30-5.75) x10(6)uL Hgb 10.7 L (11.5-15.5) g/dL Hct 33.0 (30.0-51.3) % MCV 86.4 (80-96) fL MCH 28.0 (27.7-33.6) pg MCHC 32.4 (32.2-35.4) g/dL RDW 14.0 (11.5-15.5) % Plt Count 198 (125-369) X10(3)uL MPV 10.1 (7.4-10.4) fL Neut % (Auto) (46-82) % Lymph % (Auto) (13-37) % [place] % (Auto) (4-12) % Eos % (Auto) (1.0-5.0) % Baso % (Auto) (0-2) % Neut # (Auto) (1.6-8.3) # Lymph # (Auto) (0.6-5.0) # [place] # (Auto) (0.0-1.3) # Eos # (Auto) (0.0-0.8) # Baso # (Auto) (0.0-0.2) # Add Manual Diff Yes Neutrophils % (Manual) 68 (46-82) % Lymphocytes % (Manual) 16 (13-37) % Monocytes % (Manual) 14 H (4-12) % Eosinophils % (Manual) 1 (0-5) % Metamyelocytes % 1 H (0-0) % PT 18.1 H (8.7-11.1) INR 1.77 H (0.89-1.13) Blood Type O POSITIVE Gel Antibody Screen Negative 01/26/17 01/26/17 Range/Units 05:50 05:50 WBC 9.3 (4.5-12.0) X10-3/uL RBC 3.28 L (4.30-5.75) x10(6)uL Hgb 9.0 L (11.5-15.5) g/dL Hct 28.5 L (30.0-51.3) % MCV 87.0 (80-96) fL MCH 27.5 L (27.7-33.6) pg MCHC 31.6 L (32.2-35.4) g/dL RDW 14.1 (11.5-15.5) % Plt Count 195 (125-369) X10(3)uL MPV 9.7 (7.4-10.4) fL Neut % (Auto) 71.5 (46-82) % Lymph % (Auto) 14.2 (13-37) % [place] % (Auto) 11.9 (4-12) % Eos % (Auto) 2 (1.0-5.0) % Baso % (Auto) 1 (0-2) % Neut # (Auto) 6.6 (1.6-8.3) # Lymph # (Auto) 1.3 (0.6-5.0) # [place] # (Auto) 1.1 (0.0-1.3) # Eos # (Auto) 0.2 (0.0-0.8) # Baso # (Auto) 0.1 (0.0-0.2) # Add Manual Diff Neutrophils % (Manual) (46-82) % Lymphocytes % (Manual) (13-37) % Monocytes % (Manual) (4-12) % Eosinophils % (Manual) (0-5) % Metamyelocytes % (0-0) % PT 17.3 H (8.7-11.1) INR 1.69 H (0.89-1.13) Blood Type Gel Antibody Screen [place] Results Last 24 Hours: Microbiology 01/25/17 12:20 Stool Occult Blood (RAYMUNDO) - Final Stool / Feces Med Orders - Current: Current Medications Amiodarone HCl (Cordarone) 200 mg PO BEDTIME COUNTS INCLUDE 234 BEDS AT THE [facility] Last Admin: 01/25/17 20:08 Dose: 200 mg Bisacodyl (Dulcolax) 10 mg PO ONETIME ONE Stop: 01/26/17 14:01 Carvedilol (Coreg) 25 mg PO BID COUNTS INCLUDE 234 BEDS AT THE [facility] Last Admin: 01/26/17 09:07 Dose: 25 mg Hydrocortisone Valerate (Hydrocortisone Valerate 0.2% Crm) 0 gm TOP BID PRN PRN Reason: DERMATITIS ON FOREHEAD Sodium Chloride (Normal Saline) 250 mls @ 100 mls/hr IV ASDIRECTED COUNTS INCLUDE 234 BEDS AT THE [facility] Last Admin: 01/25/17 15:39 Dose: 100 mls/hr Sodium Chloride (Normal Saline) 1,000 mls @ 100 mls/hr IV ASDIRECTED COUNTS INCLUDE 234 BEDS AT THE [facility] Last Admin: 01/26/17 05:34 Dose: 100 mls/hr Sodium Chloride (Normal Saline) 250 mls @ 100 mls/hr IV ASDIRECTED COUNTS INCLUDE 234 BEDS AT THE [facility] Isosorbide Dinitrate (Isordil) 10 mg PO BID COUNTS INCLUDE 234 BEDS AT THE [facility] Last Admin: 01/26/17 09:08 Dose: 10 mg Nitroglycerin (Nitrostat) 0.4 mg SL ASDIRECTED PRN PRN Reason: Chest Pain Mag Hydrox/Al Hydrox /Simeth [Maalox Maximum Strength] * Own Med * 30 ml PO BID PRN PRN Reason: Heartburn Omeprazole (Omeprazole) 20 mg PO BEDTIME COUNTS INCLUDE 234 BEDS AT [facility] Last Admin: 01/25/17 20:11 Dose: 20 mg Polyethylene Glycol (Miralax) 238 gm PO ONETIME ONE Stop: 01/26/17 12:01 Potassium Chloride (Klor-Con 10) 10 meq PO BID COUNTS INCLUDE 234 BEDS AT THE [facility] Last Admin: 01/26/17 09:08 Dose: 10 meq Tramadol HCl (Ultram) 50 mg PO QID PRN PRN Reason: Pain (moderate 4-6) Discontinued Medications Ferrous Sulfate (Ferrous Sulfate) 325 mg PO DAILY COUNTS INCLUDE 234 BEDS AT THE [facility] Nitroglycerin (Nitrostat) 0.4 mg SL ASDIRECTED PRN PRN Reason: Chest Pain Pantoprazole Sodium (Protonix Iv) 40 mg IVPUSH ONETIME ONE Stop: 01/25/17 14:21 Last Admin: 01/25/17 15:27 Dose: 40 mg Polyethylene Glycol (Miralax) 238 gm PO ONETIME ONE Stop: 01/26/17 08:34 - Exam General: Alert, Oriented, Cooperative Lungs: Normal Respiratory Effort GI/Abdominal Exam: Normal Bowel Sounds, Soft, Non-Tender, No Distention Psy/Mental Status: Alert, Normal Affect, Normal Mood - Problem List & Annotations (1) Lower GI bleed SNOMED Code(s): 27916830 Code(s): K92.2 - GASTROINTESTINAL HEMORRHAGE, UNSPECIFIED Status: Acute Priority: High Current Visit: Yes (2) Atrial fibrillation SNOMED Code(s): 78945358 Code(s): I48.91 - UNSPECIFIED ATRIAL FIBRILLATION Status: Acute Priority : Low Current Visit: Yes (3) CHF (congestive heart failure) SNOMED Code(s): 71989967 Code(s): I50.9 - HEART FAILURE, UNSPECIFIED Status: Acute Priority: Low Current Visit: Yes (4) Coronary artery disease SNOMED Code(s): 51588940 Code(s): I25.10 - ATHSCL HEART DISEASE OF [place] CORONARY ARTERY W/O ANG PCTRS Status: Acute Priority: Low Current Visit: Yes (5) Congestive cardiomyopathy SNOMED Code(s): 498704360 Code(s): I42.0 - DILATED CARDIOMYOPATHY Status: Acute Priority: Low Current Visit: No Annotation/Comment:: Chronic congestive cardiomyopathy. An echocardiogram is scheduled for tomorrow at 10:00 am, and will follow up at that time. (6) Palliative care status SNOMED Code(s): 910127264 Code(s): Z51.5 - ENCOUNTER FOR PALLIATIVE CARE Status: Acute Current Visit: Yes - Problem List Review Problem List Initiated/Reviewed/Updated: Yes - My Orders Last 24 Hours: My Active Orders 01/25/17 17:51 Hydrocortisone Valerate [Hydrocortisone Valerate 0.2% Crm] 0 gm TOP BID PRN Mag Hydrox/Al Hydrox/Simeth [Maalox Maximum Strength Susp] 30 ml PO BID PRN traMADol [Ultram] 50 mg PO QID PRN 01/25/17 21:00 Amiodarone [Cordarone] 200 mg PO BEDTIME Carvedilol [Coreg] 25 mg PO BID Isosorbide Dinitrate [Isordil] 10 mg PO BID Omeprazole 20 mg PO BEDTIME Potassium Chloride [Klor-Con 10] 10 meq PO BID 01/26/17 08:06 Nitroglycerin [Nitrostat] 0.4 mg SL ASDIRECTED PRN - Plan Plan:: 1. Colonoscopy in the a.m. Dr. Vinson has wrote for the prep. 2. H/H/INR at 3:30 PM today 3. Hold off on cross and type for blood. 4. FFP given today to drive the INR down lower.
[2017-01-26] MEDS ORDERED: Polyethylene Glycol 3350 Powder 238 GM Bot PO ONE (12:00)
[2017-01-26] MEDS ORDERED: Bisacodyl 5 MG Tab PO ONE (14:00)
[2017-01-26] MEDS: AMIODARONE 200 MG PO SCH (20:26)
[2017-01-26] MEDS: OMEPRAZOLE 20 MG PO SCH (20:29)
[2017-01-27] MEDS: Sodium Chloride 0.9% 1,000 ML IV SCH (05:45)
[2017-01-27] MEDS ORDERED: Lactated Ringers 1,000 ML IV ONE (08:00)
[2017-01-27] MEDS ORDERED: Lidocaine 2% 100 MG/5 ML Syringe IVPUSH ONE (08:00)
[2017-01-27] MEDS ORDERED: Midazolam 1 MG/ML 2 ML SDV IV ONE (08:00)
[2017-01-27] MEDS ORDERED: Propofol 200 MG/20 ML SDV IV ONE (08:00)
--- NOTE | 2017-01-27 08:04 | PCM.PN ---
- General Info Date of Service: 01/27/17 Admission Dx/Problem (Free Text): Patient is without complaint. No bloody stools since yesterday afternoon. He denies fatigue, dizziness, abdominal pain. - Patient Data Vitals - Most Recent: Last Vital Signs Temp 98.7 F 01/27/17 07:15 Pulse 61 01/27/17 07:15 Resp 18 01/27/17 07:15 BP 128/57 L 01/27/17 07:15 Pulse Ox 99 01/27/17 07:15 Weight - Most Recent: 207 lb I&O - Last 24 Hours: Intake & Output 01/26/17 01/27/17 01/27/17 22:59 06:59 14:59 Intake Total 306 896 Output Total 300 Balance 306 596 Lab Results Last 24 Hours: Laboratory Results - last 24 hr 01/25/17 01/26/17 01/26/17 Range/Units 13:27 16:00 17:51 WBC (4.5-12.0) X10-3/uL RBC (4.30-5.75) x10(6)uL Hgb 9.2 L (11.5-15.5) g/dL Hct 28.2 L (30.0-51.3) % MCV (80-96) fL MCH (27.7-33.6) pg MCHC (32.2-35.4) g/dL RDW (11.5-15.5) % Plt Count (125-369) X10(3)uL MPV (7.4-10.4) fL Neut % (Auto) (46-82) % Lymph % (Auto) (13-37) % [place] % (Auto) (4-12) % Eos % (Auto) (1.0-5.0) % Baso % (Auto) (0-2) % Neut # (Auto) (1.6-8.3) # Lymph # (Auto) (0.6-5.0) # [place] # (Auto) (0.0-1.3) # Eos # (Auto) (0.0-0.8) # Baso # (Auto) (0.0-0.2) # PT (8.7-11.1) INR (0.89-1.13) POC Glucose 183 H (80-116) mg/dL Blood Type O POSITIVE Gel Antibody Screen Negative 01/27/17 01/27/17 01/27/17 Range/Units 06:00 06:00 06:13 WBC 6.7 (4.5-12.0) X10-3/uL RBC 2.90 L (4.30-5.75) x10(6)uL Hgb 8.3 L (11.5-15.5) g/dL Hct 25.2 L (30.0-51.3) % MCV 86.8 (80-96) fL MCH 28.6 (27.7-33.6) pg MCHC 32.9 (32.2-35.4) g/dL RDW 13.7 (11.5-15.5) % Plt Count 199 (125-369) X10(3)uL MPV 9.9 (7.4-10.4) fL Neut % (Auto) 67.0 (46-82) % Lymph % (Auto) 15.7 (13-37) % [place] % (Auto) 13.2 H (4-12) % Eos % (Auto) 3 (1.0-5.0) % Baso % (Auto) 1 (0-2) % Neut # (Auto) 4.5 (1.6-8.3) # Lymph # (Auto) 1.0 (0.6-5.0) # [place] # (Auto) 0.9 (0.0-1.3) # Eos # (Auto) 0.2 (0.0-0.8) # Baso # (Auto) 0.1 (0.0-0.2) # PT 15.0 H (8.7-11.1) INR 1.48 H (0.89-1.13) POC Glucose 108 (80-116) mg/dL Blood Type Gel Antibody Screen Med Orders - Current: Current Medications Amiodarone HCl (Cordarone) 200 mg PO BEDTIME [facility] Last Admin: 01/26/17 20:26 Dose: 200 mg Carvedilol (Coreg) 25 mg PO BID [facility] Last Admin: 01/26/17 20:27 Dose: 25 mg Hydrocortisone Valerate (Hydrocortisone Valerate 0.2% Crm) 0 gm TOP BID PRN PRN Reason: DERMATITIS ON FOREHEAD Sodium Chloride (Normal Saline) 250 mls @ 100 mls/hr IV ASDIRECTED [facility] Last Admin: 01/25/17 15:39 Dose: 100 mls/hr Sodium Chloride (Normal Saline) 1,000 mls @ 100 mls/hr IV ASDIRECTED [facility] Last Admin: 01/27/17 05:45 Dose: 100 mls/hr Sodium Chloride (Normal Saline) 250 mls @ 100 mls/hr IV ASDIRECTED [facility] Isosorbide Dinitrate (Isordil) 10 mg PO BID [facility] Last Admin: 01/26/17 20:28 Dose: 10 mg Nitroglycerin (Nitrostat) 0.4 mg SL ASDIRECTED PRN PRN Reason: Chest Pain Mag Hydrox/Al Hydrox /Simeth [Maalox Maximum Strength] * Own Med * 30 ml PO BID PRN PRN Reason: Heartburn Omeprazole (Omeprazole) 20 mg PO BEDTIME [facility] Last Admin: 01/26/17 20:29 Dose: 20 mg Potassium Chloride (Klor-Con 10) 10 meq PO BID [facility] Last Admin: 01/26/17 20:28 Dose: 10 meq Tramadol HCl (Ultram) 50 mg PO QID PRN PRN Reason: Pain (moderate 4-6) Discontinued Medications Bisacodyl (Dulcolax) 10 mg PO ONETIME ONE Stop: 01/26/17 14:01 Last Admin: 01/26/17 13:58 Dose: 10 mg Ferrous Sulfate (Ferrous Sulfate) 325 mg PO DAILY [facility] Nitroglycerin (Nitrostat) 0.4 mg SL ASDIRECTED PRN PRN Reason: Chest Pain Pantoprazole Sodium (Protonix Iv) 40 mg IVPUSH ONETIME ONE Stop: 01/25/17 14:21 Last Admin: 01/25/17 15:27 Dose: 40 mg Polyethylene Glycol (Miralax) 238 gm PO ONETIME ONE Stop: 01/26/17 08:34 Last Admin: 01/26/17 13:16 Dose: Not Given Polyethylene Glycol (Miralax) 238 gm PO ONETIME ONE Stop: 01/26/17 12:01 Last Admin: 01/26/17 12:56 Dose: 238 gm - Exam General: Alert, Oriented, Cooperative Lungs: Normal Respiratory Effort GI/Abdominal Exam: Normal Bowel Sounds, Soft, Non-Tender, No Distention - Problem List & Annotations (1) Lower GI bleed SNOMED Code(s): 97566093 Code(s): K92.2 - GASTROINTESTINAL HEMORRHAGE, UNSPECIFIED Status: Acute Priority: High Current Visit: Yes (2) Atrial fibrillation SNOMED Code(s): 42990782 Code(s): I48.91 - UNSPECIFIED ATRIAL FIBRILLATION Status: Acute Priority : Low Current Visit: Yes (3) CHF (congestive heart failure) SNOMED Code(s): 32809925 Code(s): I50.9 - HEART FAILURE, UNSPECIFIED Status: Acute Priority: Low Current Visit: Yes (4) Coronary artery disease SNOMED Code(s): 10823170 Code(s): I25.10 - ATHSCL HEART DISEASE OF [place] CORONARY ARTERY W/O ANG PCTRS Status: Acute Priority: Low Current Visit: Yes (5) Congestive cardiomyopathy SNOMED Code(s): 101475039 Code(s): I42.0 - DILATED CARDIOMYOPATHY Status: Acute Priority: Low Current Visit: No Annotation/Comment:: Chronic congestive cardiomyopathy. An echocardiogram is scheduled for tomorrow at 10:00 am, and will follow up at that time. (6) Palliative care status SNOMED Code(s): 470315531 Code(s): Z51.5 - ENCOUNTER FOR PALLIATIVE CARE Status: Acute Current Visit: Yes - Problem List Review Problem List Initiated/Reviewed/Updated: Yes - My Orders Last 24 Hours: My Active Orders 01/26/17 08:06 Nitroglycerin [Nitrostat] 0.4 mg SL ASDIRECTED PRN 01/26/17 09:56 Accu Check [Blood Glucose Check, Bedside] [RC] BIDAC - Plan Plan:: 1. Colonoscopy today
--- NOTE | 2017-01-27 08:59 | PCM.OPNOTE ---
- General Post-Op/Procedure Note Date of Surgery/Procedure: 01/27/17 Operative Procedure(s): c scope Findings: sigmoid diverticulosis Pre Op Diagnosis: bleeding per rectum Post-Op Diagnosis: diverticulosis Anesthesia Technique: MAC Primary Surgeon: Florentin Vinson Anesthesia Provider: Aminata Anderson Complications: None Condition: Good Free Text/Narrative:: Intake & Output 01/26/17 01/27/17 01/27/17 22:59 06:59 14:59 Intake Total 306 896 Output Total 300 Balance 306 596 see dictation
[2017-01-27] MEDS: ISOSORBIDE DINITRATE 5 MG PO SCH (10:37)
[2017-01-27] MEDS: CARVEDILOL 25 MG PO SCH (10:37)
[2017-01-27] MEDS: POTASSIUM CHLORIDE 10 MEQ PO SCH (10:38)
--- NOTE | 2017-01-27 15:16 | OR ---
DATE OF OPERATION: 01/27/2017 SURGEON: Florentin Vinson MD PROCEDURE PERFORMED: Colonoscopy. PREOPERATIVE DIAGNOSIS: Rectal bleeding. POSTOPERATIVE DIAGNOSIS: Diverticulosis of the sigmoid colon. INDICATIONS FOR PROCEDURE: This is an 81-year-old white male, who presented on Saturday with a history of bright red blood per rectum. He has undergone a bowel prep and now presents for colonoscopy. DESCRIPTION OF OPERATION: After an excellent IV sedation was administered, digital rectal exam was performed. No marked abnormality was noted. Flexible colonoscope was inserted and advanced to the cecum without difficulty. The following findings were noted. Prep was excellent. Ascending colon, unremarkable. Transverse colon, unremarkable. Descending colon, unremarkable. Sigmoid, mild diverticulosis. No signs of active bleeding. Rectum and anus unremarkable. Colon was deflated, scope was removed. The patient tolerated the procedure well and was taken to recovery room in good condition. /[id number] /DORINAL
--- NOTE | 2017-01-27 16:06 | PCM.SN ---
- Free Text/Narrative Note: Patient has no bloody stools. He's maintain his hemoglobin all day long. We'll discharge to home on his normal regiment of medications except will hold the Coumadin for a week. He has iron already ordered.
--- NOTE | 2017-01-27 16:11 | PCM.DCSUM1 ---
Discharge Summary - Hospital Course Free Text/Narrative:: 81-year-old male patient minute for lower GI bleed. He was given 2 units of FFP because is on Coumadin. INR was below to the next day. He is given 2 more units. He continued to have bright red blood in his stool. His hemoglobin went from 10 down to around 8 over the course of his stay. Dr. Vinson course was consult. He thought we could get this to stop without doing a colonoscopy. But he dropped a little bit so scheduled a colonoscopy. The day of discharge he stopped his bright red stools. Patient was asymptomatic. He denies chest pain, abdominal pain, dizziness, fatigue. We held his Lasix and Coumadin while he was here. He had a colonoscopy showed diverticulosis but no diverticulitis or bleeding. Recheck his hemoglobin later the same day and he maintain his hemoglobin. We'll discharge him to home on his normal iron. Hold his Coumadin for 1 week. Risks of that discussed with the patient. Brief History: This is an 81-year-old male patient says he started having bright red rectal bleeding yesterday and today. He says his blood was coming out of his rectum without stool. He came into the ER and got admitted. He denies dizziness, fatigue, lightheadedness, abdominal pain, nausea, vomiting, constipation, diarrhea. Patient believes he had a colonoscopy a year and a half ago. He denies chest pain, shortness of breath. - Discharge Data Discharge Date: 01/27/17 Discharge Disposition: Home, Self-Care 01 Condition: Good - Discharge Diagnosis/Problem(s) (1) Lower GI bleed SNOMED Code(s): 09578550 ICD Code: K92.2 - GASTROINTESTINAL HEMORRHAGE, UNSPECIFIED Status: Acute Priority: High Current Visit: Yes (2) Atrial fibrillation SNOMED Code(s): 09362265 ICD Code: I48.91 - UNSPECIFIED ATRIAL FIBRILLATION Status: Acute Priority : Low Current Visit: Yes (3) CHF (congestive heart failure) SNOMED Code(s): 01363214 ICD Code: I50.9 - HEART FAILURE, UNSPECIFIED Status: Acute Priority: Low Current Visit: Yes (4) Coronary artery disease SNOMED Code(s): 56042061 ICD Code: I25.10 - ATHSCL HEART DISEASE OF [place] CORONARY ARTERY W/O ANG PCTRS Status: Acute Priority: Low Current Visit: Yes (5) Congestive cardiomyopathy SNOMED Code(s): 114850402 ICD Code: I42.0 - DILATED CARDIOMYOPATHY Status: Acute Priority: Low Current Visit: No Problem Details: Chronic congestive cardiomyopathy. An echocardiogram is scheduled for tomorrow at 10:00 am, and will follow up at that time. (6) Palliative care status SNOMED Code(s): 313943746 ICD Code: Z51.5 - ENCOUNTER FOR PALLIATIVE CARE Status: Acute Current Visit: Yes - Patient Summary/Data Operative Procedure(s) Performed: c scope - Patient Instructions Diet: Diabetic Diet Activity: As Tolerated Driving: May Drive Today Showering/Bathing: May Shower Notify Provider of: Increased Pain, Drainage Other/Special Instructions: 1. Hold Coumadin until he sees Dr. Dunn in 1 week.. 2. Recheck with Dr. Dunn in 1 week with a CBC before the appointment. - Discharge Plan Home Medications: Home Meds Aspirin [Ecotrin] 81 mg PO DAILY 03/17/14 [History] Carvedilol [Coreg] 25 mg PO BID 03/17/14 [History] Nitroglycerin [Nitrostat] 0.4 mg SL ASDIRECTED PRN 03/17/14 [History] Omeprazole [Prilosec] 20 mg PO BEDTIME 03/17/14 [History] Potassium Chloride 10 meq PO BID 03/17/14 [History] Amiodarone [Cordarone] 200 mg PO BEDTIME 07/19/15 [History] Mag Hydrox/Al Hydrox/Simeth [Maalox Maximum Strength Susp] 30 ml PO BID PRN [History] glipiZIDE [Glucotrol] 5 mg PO DAILY 01/17/16 [History] Ferrous Sulfate 324 mg PO DAILY 01/25/17 [History] Furosemide 80 mg PO BID 01/25/17 [History] Hydrocortisone Valerate [Hydrocortisone Valerate 0.2% Crm] 1 applic TOP BID PRN 01/25/17 [History] Isosorbide Dinitrate 10 mg PO BID 01/25/17 [History] traMADol [Ultram] 50 mg PO QID PRN 01/25/17 [History] Patient Handouts: Colonoscopy, Care After, [id number], Diverticulosis Forms: ED Department Discharge Referrals: Luiz Dunn MD [Primary Care Provider] - - Discharge Summary/Plan Comment DC Time >30 min.: No - Patient Data Vitals - Most Recent: Last Vital Signs Temp 98.7 F 01/27/17 07:15 Pulse 85 01/27/17 10:37 Resp 18 01/27/17 07:15 BP 130/85 01/27/17 10:37 Pulse Ox 99 01/27/17 07:15 Weight - Most Recent: 207 lb I&O - Last 24 hours: Intake & Output 01/27/17 01/27/17 01/27/17 06:59 14:59 22:59 Intake Total 908 Balance 908 Lab Results - Last 24 hrs: Laboratory Results - last 24 hr 01/27/17 Range/Units 15:35 Hgb 8.3 L (11.5-15.5) g/dL Med Orders - Current: Current Medications Amiodarone HCl (Cordarone) 200 mg PO BEDTIME [facility] Last Admin: 01/26/17 20:26 Dose: 200 mg Carvedilol (Coreg) 25 mg PO BID [facility] Last Admin: 01/27/17 10:37 Dose: 25 mg Hydrocortisone Valerate (Hydrocortisone Valerate 0.2% Crm) 0 gm TOP BID PRN PRN Reason: DERMATITIS ON FOREHEAD Sodium Chloride (Normal Saline) 250 mls @ 100 mls/hr IV ASDIRECTED [facility] Last Admin: 01/25/17 15:39 Dose: 100 mls/hr Sodium Chloride (Normal Saline) 1,000 mls @ 100 mls/hr IV ASDIRECTED [facility] Last Admin: 01/27/17 05:45 Dose: 100 mls/hr Sodium Chloride (Normal Saline) 250 mls @ 100 mls/hr IV ASDIRECTED [facility] Isosorbide Dinitrate (Isordil) 10 mg PO BID [facility] Last Admin: 01/27/17 10:37 Dose: 10 mg Nitroglycerin (Nitrostat) 0.4 mg SL ASDIRECTED PRN PRN Reason: Chest Pain Mag Hydrox/Al Hydrox /Simeth [Maalox Maximum Strength] * Own Med * 30 ml PO BID PRN PRN Reason: Heartburn Omeprazole (Omeprazole) 20 mg PO BEDTIME [facility] Last Admin: 01/26/17 20:29 Dose: 20 mg Potassium Chloride (Klor-Con 10) 10 meq PO BID [facility] Last Admin: 01/27/17 10:38 Dose: 10 meq Tramadol HCl (Ultram) 50 mg PO QID PRN PRN Reason: Pain (moderate 4-6) Discontinued Medications Bisacodyl (Dulcolax) 10 mg PO ONETIME ONE Stop: 01/26/17 14:01 Last Admin: 01/26/17 13:58 Dose: 10 mg Ferrous Sulfate (Ferrous Sulfate) 325 mg PO DAILY [facility] Nitroglycerin (Nitrostat) 0.4 mg SL ASDIRECTED PRN PRN Reason: Chest Pain Pantoprazole Sodium (Protonix Iv) 40 mg IVPUSH ONETIME ONE Stop: 01/25/17 14:21 Last Admin: 01/25/17 15:27 Dose: 40 mg Polyethylene Glycol (Miralax) 238 gm PO ONETIME ONE Stop: 01/26/17 08:34 Last Admin: 01/26/17 13:16 Dose: Not Given Polyethylene Glycol (Miralax) 238 gm PO ONETIME ONE Stop: 01/26/17 12:01 Last Admin: 01/26/17 12:56 Dose: 238 gm *Q Meaningful Use (DIS) - VTE *Q VTE Criteria *Q: - Stroke *Q Stroke Criteria *Q: - AMI *Q AMI Criteria *Q:
[2017-01-27 16:37] VITALS: BP 114/42
== END 2017-01-27 17:32 | disposition home or self-care (01) | DRG 378 ==
LOC: FB.ED 10:44 → FB.MS 12:09 → OBSVTOIN 01-27 08:59
PROVIDERS: ADMIT Family Medicine; ATTEND Family Medicine
PROC: 30233K1 Transfusion of Nonautologous Frozen Plasma into Peripheral Vein, Percutaneous Approach (ICD-10-PCS; principal; 2017-01-25)
PROC: 30233K1 Transfusion of Nonautologous Frozen Plasma into Peripheral Vein, Percutaneous Approach (ICD-10-PCS; 2017-01-26)
PROC: 0DJD8ZZ Inspection of Lower Intestinal Tract, Via Natural or Artificial Opening Endoscopic (ICD-10-PCS; 2017-01-27)
DX: K92.1 Melena (principal); K92.2 Gastrointestinal hemorrhage, unspecified; D68.32 Hemorrhagic disorder due to extrinsic circulating anticoagulants; I13.0 Hypertensive heart and chronic kidney disease with heart failure and stage 1 through stage 4 chronic kidney disease, or unspecified chronic kidney disease; E11.9 Type 2 diabetes mellitus without complications; I42.9 Cardiomyopathy, unspecified; T45.515A Adverse effect of anticoagulants, initial encounter; Y92.009 Unspecified place in unspecified non-institutional (private) residence as the place of occurrence of the external cause; I48.91 Unspecified atrial fibrillation; Z79.01 Long term (current) use of anticoagulants; I50.9 Heart failure, unspecified; E11.22 Type 2 diabetes mellitus with diabetic chronic kidney disease; Z79.84 Long term (current) use of oral hypoglycemic drugs; Z87.891 Personal history of nicotine dependence; Z66 Do not resuscitate; N18.9 Chronic kidney disease, unspecified; Z51.5 Encounter for palliative care; I25.10 Atherosclerotic heart disease of native coronary artery without angina pectoris; I25.2 Old myocardial infarction; G47.30 Sleep apnea, unspecified; K21.9 Gastro-esophageal reflux disease without esophagitis; Z86.73 Personal history of transient ischemic attack (TIA), and cerebral infarction without residual deficits; Z95.5 Presence of coronary angioplasty implant and graft; M19.90 Unspecified osteoarthritis, unspecified site; Z95.0 Presence of cardiac pacemaker; Z79.82 Long term (current) use of aspirin; Z88.0 Allergy status to penicillin; Z88.8 Allergy status to other drugs, medicaments and biological substances; L30.9 Dermatitis, unspecified
CPT/HCPCS: 36415 ×3; 36430 ×3; 80048; 82272; 82962 ×2; 83880; 85014; 85018; 85025 ×4; 85610 ×4; 86850; 86900; 86901; 93005; 96361 ×2; 96374; 99220; 99225; 99285; A9270 ×15; C9113; G0378 ×2; J2250; J2704; J7040 ×4; J7050; J7120; P9017 ×4

== ENCOUNTER 2017-07-28 03:20 | Observation (INO) | payer MEDICARE ==
[2017-07-28] MEDS ORDERED: Sodium Chloride 0.9% 10 ML Syringe FLUSH PRN (04:20)
[2017-07-28] MEDS ORDERED: Sodium Chloride 0.9% 1,000 ML IV SCH (04:30)
[2017-07-28] MEDS ORDERED: Phytonadione ORAL 5mg/5ml Soln Simple Syrup U/D PO ONE ×2 (04:30→13:09)
--- NOTE | 2017-07-28 04:35 | PCM.HP ---
H&P History of Present Illness - General Date of Service: 07/28/17 Admit Problem/Dx: Admission Diagnosis/Problem Admission Diagnosis/Problem Lower gastrointestinal hemorrhage Source of Information: Patient, Family, Old Records History Limitations: Reports: No Limitations - History of Present Illness Initial Comments - Free Text/Narative: 82-year-old male admitted by myself through the ER by myself Because of bright red blood per rectum. He was in his usual state of health until last night when he had one episode of bright red blood. He's had a history of sigmoid diverticulosis and colon polyps in the past and was admitted in January in this hospital for similar reasons. He takes Coumadin because of a history of chronic atrial fibrillation. He denies any nausea vomiting or constipation. He has chronic kidney disease, with a baseline creatinine of 2.2, CHF with an ECHO in 2016 showing EF of 30%. He has an ICD and pacemaker in place. - Related Data Allergies/Adverse Reactions: Allergies Allergy/AdvReac Type Severity Reaction Status Date / Time meclizine Allergy Confusion Verified 07/28/17 07:44 Penicillins Allergy Hives Verified 07/28/17 07:44 Home Medications: Home Meds Carvedilol [Coreg] 25 mg PO BID 03/17/14 [History] Nitroglycerin [Nitrostat] 0.4 mg SL ASDIRECTED PRN 03/17/14 [History] Omeprazole [Prilosec] 20 mg PO BEDTIME 03/17/14 [History] Potassium Chloride 10 meq PO BID 03/17/14 [History] Amiodarone [Cordarone] 200 mg PO BEDTIME 07/19/15 [History] Mag Hydrox/Al Hydrox/Simeth [Maalox Maximum Strength Susp] 30 ml PO BID PRN [History] glipiZIDE [Glucotrol] 5 mg PO DAILY 01/17/16 [History] Ferrous Sulfate 324 mg PO DAILY 01/25/17 [History] Furosemide 80 mg PO BID 01/25/17 [History] Hydrocortisone Valerate [Hydrocortisone Valerate 0.2% Crm] 1 applic TOP BID PRN 01/25/17 [History] Isosorbide Dinitrate 10 mg PO BID 01/25/17 [History] traMADol [Ultram] 50 mg PO QID PRN 01/25/17 [History] Warfarin Sodium [Warfarin Sodium] 0.5 tab PO SUTUWETHSA 07/28/17 [History] Warfarin Sodium [Warfarin Sodium] 1 tab PO MOFR 07/28/17 [History] Past Medical History HEENT History: Reports: Allergic Rhinitis Other HEENT History: Wears glasses. Cardiovascular History: Reports: Afib, Arrhythmia, CAD, Cardiomyopathy, Heart Failure, High Cholesterol, Hypertension, NE, Other (See Below) Other Cardiovascular History: VT WITH CARDIOVERSION IN JUN 2015, ANTERIOR NE 2006, NE X3, NEAR SYNCOPE, PAROXYSMAL ATRIAL FIBRILLATION, VENTRICULAR TACHYCARDIA. Respiratory History: Reports: Sleep Apnea Other Respiratory History: pt uses oxygen Gastrointestinal History: Reports: GERD Genitourinary History: Reports: Renal Disease Musculoskeletal History: Reports: Arthritis, Fracture Other Musculoskeletal History: R elbow fx, rib fx. Neurological History: Reports: CVA Endocrine/Metabolic History: Reports: Diabetes, Type II, Obesity/BMI 30+ Hematologic History: Reports: Anemia, Blood Transfusion(s) Dermatologic History: Reports: Eczema - Infectious Disease History Infectious Disease History: Reports: Chicken Pox, Measles, Mumps - Past Surgical History HEENT Surgical History: Reports: Eye Surgery Cardiovascular Surgical History: Reports: AICD, Coronary Artery Stent, Pacer GI Surgical History: Reports: Appendectomy, Cholecystectomy, Hernia Repair/Other Social & Family History - Family History Family Medical History: Noncontributory - Tobacco Use Smoking Status *Q: Former Smoker Years of Tobacco use: 25 Packs/Tins Daily: 1 Used Tobacco, but Quit: No Month Tobacco Last Used: January Second Hand Smoke Exposure: No - Caffeine Use Caffeine Use: Reports: None - Alcohol Use Days Per Week of Alcohol Use: 0 - Recreational Drug Use Recreational Drug Use: No H&P Review of Systems - Review of Systems: Review Of Systems: ROS reveals no pertinent complaints other than HPI. Exam - Exam Exam: See Below - Vital Signs Vital Signs: Last Vital Signs Temp 97.5 F 07/28/17 03:25 Pulse 73 07/28/17 03:25 Resp 16 07/28/17 03:25 BP 149/78 H 07/28/17 03:25 Pulse Ox 95 07/28/17 03:25 Weight: 98.883 kg - Exam General: Alert, Oriented, 4 HEENT: PERRLA, Hearing Intact, Mucosa Moist & [place], Nares Patent, Normal Nasal Septum, Posterior Pharynx Clear, Conjunctiva Clear, EOMI, EACs Clear, TMs Clear Neck: Supple, Trachea Midline, 2 Lungs: Clear to Auscultation, Normal Respiratory Effort Cardiovascular: Regular Rate, Regular Rhythm GI/Abdominal Exam: Normal Bowel Sounds, Soft, Non-Tender, No Organomegaly, No Distention, No Abnormal Bruit, No Mass, Pelvis Stable (Male) Exam: Deferred Rectal (Males) Exam: Bloody Stool Back Exam: Normal Inspection, Full Range of Motion, NT Extremities: Normal Inspection, Normal Range of Motion, Non-Tender, No Pedal Edema, Normal Capillary Refill Skin: Warm, Dry, Intact Neurological: Cranial Nerves Intact, Reflexes Equal Bilateral Neuro Extensive - Mental Status: Alert, Oriented x3, Normal Mood/Affect, Normal Cognition Neuro Extensive - Motor, Sensory, Reflexes: CN II-XII Intact, Normal Gait, Normal Reflexes Psychiatric: Alert, Normal Affect, Normal Mood - Patient Data Result Diagrams: 07/28/17 03:45 07/28/17 03:45 EKG INTERPRETATION EKG Date: 07/28/17 Rhythm: NSR *Q Meaningful Use (ADM) - VTE *Q VTE Criteria *Q: - Stroke *Q Stroke Criteria *Q: - AMI *Q AMI Criteria *Q: - Problem List (1) Lower GI bleed SNOMED Code(s): 65411591 ICD Code: K92.2 - GASTROINTESTINAL HEMORRHAGE, UNSPECIFIED Status: Acute Priority: High Current Visit: No (2) Anticoagulant long-term use SNOMED Code(s): 512444205 ICD Code: Z79.01 - CARE HOME (CURRENT) USE OF ANTICOAGULANTS Status: Acute Current Visit: Yes (3) CKD (chronic kidney disease) SNOMED Code(s): 025621609 ICD Code: N18.9 - CHRONIC KIDNEY DISEASE, UNSPECIFIED Status: Acute Current Visit: Yes Qualifiers: Chronic kidney disease stage: stage 4 (severe) Qualified Code(s): N18.4 - Chronic kidney disease, stage 4 (severe) (4) Obesity SNOMED Code(s): 269238003 ICD Code: E66.9 - OBESITY, UNSPECIFIED Status: Acute Current Visit: Yes Qualifiers: Obesity type: due to excess calories (5) S/P placement of cardiac pacemaker SNOMED Code(s): 756684178, 607085039 ICD Code: Z95.0 - PRESENCE OF CARDIAC PACEMAKER Status: Chronic Current Visit: Yes (6) Atrial fibrillation SNOMED Code(s): 73370364 ICD Code: I48.91 - UNSPECIFIED ATRIAL FIBRILLATION Status: Chronic Priority: Low Current Visit: No Qualifiers: Atrial fibrillation type: chronic Qualified Code(s): I48.2 - Chronic atrial fibrillation (7) Coronary artery disease SNOMED Code(s): 77587606 ICD Code: I25.10 - ATHSCL HEART DISEASE OF [place] CORONARY ARTERY W/O ANG PCTRS Status: Acute Priority: Low Current Visit: No Qualifiers: Coronary Disease-Associated Artery/Lesion type: [place] artery (8) Palliative care status SNOMED Code(s): 888307008 ICD Code: Z51.5 - ENCOUNTER FOR PALLIATIVE CARE Status: Acute Current Visit: No (9) Sigmoid diverticulosis SNOMED Code(s): 508636325 ICD Code: K57.30 - DVRTCLOS OF LG INT W/O PERFORATION OR ABSCESS W/O BLEEDING Status: Acute Current Visit: No (10) Diabetes type 2, controlled SNOMED Code(s): 16820163 ICD Code: E11.9 - TYPE 2 DIABETES MELLITUS WITHOUT COMPLICATIONS Status: Acute Current Visit: Yes (11) HTN (hypertension) SNOMED Code(s): 61169515 ICD Code: I10 - ESSENTIAL (PRIMARY) HYPERTENSION Status: Acute Current Visit: Yes Problem List Initiated/Reviewed/Updated: Yes Orders Last 24hrs: Active Orders 24 hr Category Date Time Status Patient Status Manage Transfer [TRANSFER] Routine ADT 07/28/17 04:27 Active Sodium Chloride 0.9% [Normal Saline] 1,000 ml Med 07/28/17 04:30 Active IV ASDIRECTED Medication Orders Sodium Chloride (Normal Saline) 1,000 mls @ 50 mls/hr IV ASDIRECTED [facility] Pantoprazole Sodium (Protonix) 40 mg PO DAILY [facility] Sodium Chloride (Saline Flush) 10 ml FLUSH ASDIRECTED PRN PRN Reason: Keep Vein Open Assessment/Plan Comment:: Admit for observation. I ordered a type and screen, and a repeat CBC later tonight. For now will give 1 dose of vitamin K, and the gentle IV fluid fluid rehydration. Also given 1 oral dose of PPI -Protonix. I see no emergent need at this time to consult general surgery given his recent admission on colonoscopy less than 6 months ago. We will watch his vital signs every 4 hours. He becomes unstable he might be a candidate to send to [facility].
[2017-07-28] MEDS: Pantoprazole 40 MG Tab.CR PO SCH ×2 (05:00→09:39)
--- NOTE | 2017-07-28 05:13 | ER ---
DATE SEEN: 07/28/2017 CHIEF COMPLAINT: Bright red blood per rectum. HISTORY OF PRESENT ILLNESS: This is an 82-year-old male with his . He has had bright red blood per rectum since this morning, several episodes and black melena stool that was noted in the emergency room. He has no complaints of chest pain, shortness of breath or nausea, vomiting, diarrhea, or syncope. PAST MEDICAL HISTORY: Sigmoid diverticulosis, chronic kidney disease, atrial fibrillation, syncope. ALLERGIES: Penicillin, meclizine. SOCIAL HISTORY: Does not smoke. PHYSICAL EXAMINATION: GENERAL: He is not in any cardiopulmonary distress. VITAL SIGNS: He has a normal blood pressure. Temperature is 97.5. ABDOMEN: Soft and benign. CHEST: Clear. ENT: Negative. EXTREMITIES: No edema. LABS: Showed a creatinine of 2.6, previously 2.2. INR was 3.63. Hemoglobin was 15.2. IMPRESSION: Lower gastrointestinal bleed. PLAN: My plan is to admit the patient. IV fluids, vitamin K, repeat blood work and serial INR. TIME SEEN: 0430 hours. /[id number] MORTEZA/LEONARDO
[2017-07-28] MEDS ORDERED: Nitroglycerin 0.4 MG Tab.SL SL PRN (07:41)
[2017-07-28] MEDS ORDERED: traMADol 50 MG Tab PO PRN (07:42)
[2017-07-28] MEDS ORDERED: Carvedilol 25 MG Tab PO SCH (09:00)
[2017-07-28] MEDS ORDERED: Isosorbide Dinitrate 10 MG Tab PO SCH (09:00)
[2017-07-28] MEDS: glipiZIDE 5 MG Tab PO SCH (09:38)
[2017-07-28] MEDS: Amiodarone 200 MG Tab PO SCH (20:16)
--- NOTE | 2017-07-29 08:50 | PCM.PN ---
- General Info Date of Service: 07/29/17 Admission Dx/Problem (Free Text): Admission Diagnosis/Problem Admission Diagnosis/Problem Lower gastrointestinal hemorrhage Subjective Update: Patient slept well overnight normal black stools or bright red blood per rectum. He expresses strong interest to go back home today. - Review of Systems General: Reports: No Symptoms HEENT: Reports: No Symptoms Pulmonary: Reports: No Symptoms Cardiovascular: Reports: No Symptoms Gastrointestinal: Reports: No Symptoms - Patient Data Vitals - Most Recent: Last Vital Signs Temp 98.1 F 07/29/17 00:00 Pulse 70 07/29/17 05:00 Resp 20 07/29/17 05:00 BP 128/63 07/29/17 05:00 Pulse Ox 96 07/29/17 05:00 Weight - Most Recent: 94.937 kg I&O - Last 24 Hours: Intake & Output 07/28/17 07/29/17 07/29/17 22:59 06:59 14:59 Intake Total 115 0 Output Total 800 200 Balance -685 -200 Lab Results Last 24 Hours: Laboratory Results - last 24 hr 07/28/17 07/28/17 07/29/17 Range/Units 16:00 16:00 06:20 WBC 9.9 8.9 (4.5-12.0) X10-3/uL RBC 5.20 4.72 (4.30-5.75) x10(6)uL Hgb 15.5 14.3 (11.5-15.5) g/dL Hct 45.8 41.7 (30.0-51.3) % MCV 88.0 88.3 (80-96) fL MCH 29.7 30.3 (27.7-33.6) pg MCHC 33.8 34.3 (32.2-35.4) g/dL RDW 13.7 13.7 (11.5-15.5) % Plt Count 193 175 (125-369) X10(3)uL MPV 10.1 9.7 (7.4-10.4) fL Neut % (Auto) 72.6 67.6 (46-82) % Lymph % (Auto) 12.9 L 14.8 (13-37) % [place] % (Auto) 12.4 H 14.8 H (4-12) % Eos % (Auto) 2 2 (1.0-5.0) % Baso % (Auto) 1 1 (0-2) % Neut # (Auto) 7.2 6.0 (1.6-8.3) # Lymph # (Auto) 1.3 1.3 (0.6-5.0) # [place] # (Auto) 1.2 1.3 (0.0-1.3) # Eos # (Auto) 0.2 0.2 (0.0-0.8) # Baso # (Auto) 0.0 0.1 (0.0-0.2) # PT 25.7 H (8.7-11.1) INR 2.49 H (0.89-1.13) Sodium (135-145) mmol/L Potassium (3.5-5.3) mmol/L Chloride (100-110) mmol/L Carbon Dioxide (21-32) mmol/L BUN (7-18) mg/dL Creatinine (0.70-1.30) mg/dL Est Cr Clr Drug Dosing mL/min Estimated GFR (MDRD) (>60) BUN/Creatinine Ratio (9-20) Glucose (80-116) mg/dL Calcium (8.6-10.2) mg/dL 18 07/29/17 Range/Units 06:20 06:20 WBC (4.5-12.0) X10-3/uL RBC (4.30-5.75) x10(6)uL Hgb (11.5-15.5) g/dL Hct (30.0-51.3) % MCV (80-96) fL MCH (27.7-33.6) pg MCHC (32.2-35.4) g/dL RDW (11.5-15.5) % Plt Count (125-369) X10(3)uL MPV (7.4-10.4) fL Neut % (Auto) (46-82) % Lymph % (Auto) (13-37) % [place] % (Auto) (4-12) % Eos % (Auto) (1.0-5.0) % Baso % (Auto) (0-2) % Neut # (Auto) (1.6-8.3) # Lymph # (Auto) (0.6-5.0) # [place] # (Auto) (0.0-1.3) # Eos # (Auto) (0.0-0.8) # Baso # (Auto) (0.0-0.2) # PT 17.2 H (8.7-11.1) INR 1.68 H (0.89-1.13) Sodium 144 (135-145) mmol/L Potassium 3.4 L (3.5-5.3) mmol/L Chloride 104 D (100-110) mmol/L Carbon Dioxide 33 H (21-32) mmol/L BUN 28 H D (7-18) mg/dL Creatinine 2.2 H* (0.70-1.30) mg/dL Est Cr Clr Drug Dosing 23.95 mL/min Estimated GFR (MDRD) 29 L (>60) BUN/Creatinine Ratio 12.7 (9-20) Glucose 134 H (80-116) mg/dL Calcium 8.5 L (8.6-10.2) mg/dL Med Orders - Current: Current Medications Amiodarone HCl (Cordarone) 200 mg PO DAILY [facility] Last Admin: 07/28/17 20:16 Dose: 200 mg Glipizide (Glucotrol) 5 mg PO DAILY [facility] Last Admin: 07/28/17 09:38 Dose: 5 mg Sodium Chloride (Normal Saline) 1,000 mls @ 50 mls/hr IV ASDIRECTED [facility] Last Admin: 07/28/17 05:19 Dose: 50 mls/hr Nitroglycerin (Nitrostat) 0.4 mg SL Q5M PRN PRN Reason: Chest Pain Pantoprazole Sodium (Protonix) 40 mg PO DAILY [facility] Last Admin: 07/28/17 09:39 Dose: 40 mg Sodium Chloride (Saline Flush) 10 ml FLUSH ASDIRECTED PRN PRN Reason: Keep Vein Open Tramadol HCl (Ultram) 50 mg PO QID PRN PRN Reason: PAIN Discontinued Medications Carvedilol (Coreg) 25 mg PO BID [facility] Last Admin: 07/28/17 09:38 Dose: 25 mg Isosorbide Dinitrate (Isordil) 10 mg PO BID [facility] Last Admin: 07/28/17 09:39 Dose: 10 mg Phytonadione (Aquamephyton) 5 mg PO ONETIME ONE Stop: 07/28/17 04:31 Last Admin: 07/28/17 04:53 Dose: 5 mg Phytonadione (Aquamephyton) 5 mg PO ONETIME ONE Stop: 07/28/17 13:10 Last Admin: 07/28/17 13:16 Dose: 5 mg - Exam Quality Assessment: Supplemental Oxygen General: Alert HEENT: Pupils Equal, Pupils Reactive, EOMI, Mucous Membr. Moist/Bertha Neck: Supple Lungs: Clear to Auscultation, Normal Respiratory Effort - Problem List & Annotations (1) Lower GI bleed SNOMED Code(s): 42779515 Code(s): K92.2 - GASTROINTESTINAL HEMORRHAGE, UNSPECIFIED Status: Acute Priority: High Current Visit: No (2) Anticoagulant long-term use SNOMED Code(s): 528584218 Code(s): Z79.01 - SENIOR LIVING (CURRENT) USE OF ANTICOAGULANTS Status: Acute Current Visit: Yes (3) CKD (chronic kidney disease) SNOMED Code(s): 091774951 Code(s): N18.9 - CHRONIC KIDNEY DISEASE, UNSPECIFIED Status: Acute Current Visit: Yes Qualifiers: Chronic kidney disease stage: stage 4 (severe) Qualified Code(s): N18.4 - Chronic kidney disease, stage 4 (severe) (4) Obesity SNOMED Code(s): 279715908 Code(s): E66.9 - OBESITY, UNSPECIFIED Status: Acute Current Visit: Yes Qualifiers: Obesity type: due to excess calories (5) S/P placement of cardiac pacemaker SNOMED Code(s): 657690016, 037183805 Code(s): Z95.0 - PRESENCE OF CARDIAC PACEMAKER Status: Chronic Current Visit: Yes (6) Atrial fibrillation SNOMED Code(s): 98994927 Code(s): I48.91 - UNSPECIFIED ATRIAL FIBRILLATION Status: Chronic Priority: Low Current Visit: No Qualifiers: Atrial fibrillation type: chronic Qualified Code(s): I48.2 - Chronic atrial fibrillation (7) Coronary artery disease SNOMED Code(s): 25818573 Code(s): I25.10 - ATHSCL HEART DISEASE OF [place] CORONARY ARTERY W/O ANG PCTRS Status: Acute Priority: Low Current Visit: No Qualifiers: Coronary Disease-Associated Artery/Lesion type: [place] artery (8) Palliative care status SNOMED Code(s): 704555363 Code(s): Z51.5 - ENCOUNTER FOR PALLIATIVE CARE Status: Acute Current Visit: No (9) Sigmoid diverticulosis SNOMED Code(s): 596671424 Code(s): K57.30 - DVRTCLOS OF LG INT W/O PERFORATION OR ABSCESS W/O BLEEDING Status: Acute Current Visit: No (10) Diabetes type 2, controlled SNOMED Code(s): 78932020 Code(s): E11.9 - TYPE 2 DIABETES MELLITUS WITHOUT COMPLICATIONS Status: Acute Current Visit: Yes (11) HTN (hypertension) SNOMED Code(s): 62151578 Code(s): I10 - ESSENTIAL (PRIMARY) HYPERTENSION Status: Acute Current Visit: Yes Qualifiers: Hypertension type: essential hypertension Qualified Code(s): I10 - Essential (primary) hypertension - Problem List Review Problem List Initiated/Reviewed/Updated: Yes - My Orders Last 24 Hours: My Active Orders 07/28/17 09:00 glipiZIDE [Glucotrol] 5 mg PO DAILY 07/28/17 19:27 Code Status [Resuscitation Status] Routine 07/28/17 21:00 Amiodarone [Cordarone] 200 mg PO DAILY - Plan Plan:: His hemoglobin has been stable throughout and so have been his vital signs. He hasn't had any normal red or black stool since yesterday. His creatinine is improved to point to his baseline. His INR is 1.6, off Coumadin. I will discharge him home today resume his home medications with exception of Coumadin until he sees his PCP this week
[2017-07-29] MEDS: glipiZIDE 5 MG Tab PO SCH (09:09)
[2017-07-29] MEDS: Pantoprazole 40 MG Tab.CR PO SCH (09:27)
[2017-07-29] MEDS: Amiodarone 200 MG Tab PO SCH (09:29)
[2017-07-29 09:39] VITALS: BP 131/81
--- NOTE | 2017-07-29 10:30 | DISCH ---
DISCHARGE DATE: 07/29/2017 REASON FOR ADMISSION: 1. Bright red blood per rectum. 2. Chronic kidney disease with acute exacerbation. 3. History of congestive heart failure. 4. History of coronary artery disease. 5. History of atrial fibrillation. 6. History of obesity. 7. History of sigmoid diverticulosis. CONSULTATIONS: None. BRIEF HISTORY AND HOSPITAL COURSE: The patient is an 82-year-old male brought in by his because of bright red blood per rectum. He is known to have history of anemia from upper GI bleed and was admitted in January with similar symptoms. He had three stools in the hospital, but were bright red, unquantified amount, his INR on admission was 3.6. He was given some vitamin K. His hemoglobin remained stable coming up from 15 to 14. His vital signs were normal. His creatinine came down from 2.6 on admission to 2.2. Initially, I gave him 50 mL of normal saline, gentle rehydration, and Protonix. I discontinued this after 12 hours and he remained stable. I discharged him home today. I will discharge him on same medications with the exception that I discontinued ferrous sulfate and Coumadin until he sees Dr. Dunn this week. Please note, that I spent more than 35 minutes in the discharge of this patient. /[id number] MORTEZA/LEONARDO
== END 2017-07-29 11:00 | disposition home or self-care (01) ==
LOC: FB.ED 03:20 → FB.MS 04:20 → INTOOBSV 04:20
PROVIDERS: ADMIT Family Medicine; ATTEND Family Medicine
DX: K92.1 Melena (principal); I13.0 Hypertensive heart and chronic kidney disease with heart failure and stage 1 through stage 4 chronic kidney disease, or unspecified chronic kidney disease; I50.9 Heart failure, unspecified; I25.10 Atherosclerotic heart disease of native coronary artery without angina pectoris; N18.4 Chronic kidney disease, stage 4 (severe); I48.2 Chronic atrial fibrillation; E78.00 Pure hypercholesterolemia, unspecified; I25.2 Old myocardial infarction; I42.9 Cardiomyopathy, unspecified; G47.30 Sleep apnea, unspecified; K21.9 Gastro-esophageal reflux disease without esophagitis; M19.90 Unspecified osteoarthritis, unspecified site; E11.22 Type 2 diabetes mellitus with diabetic chronic kidney disease; E66.09 Other obesity due to excess calories; K57.30 Diverticulosis of large intestine without perforation or abscess without bleeding; Z68.30 Body mass index [BMI] 30.0-30.9, adult; Z86.010 Personal history of colon polyps; Z79.01 Long term (current) use of anticoagulants; Z88.0 Allergy status to penicillin; Z88.8 Allergy status to other drugs, medicaments and biological substances; Z79.899 Other long term (current) drug therapy; Z79.84 Long term (current) use of oral hypoglycemic drugs; Z86.73 Personal history of transient ischemic attack (TIA), and cerebral infarction without residual deficits; Z95.5 Presence of coronary angioplasty implant and graft; Z95.0 Presence of cardiac pacemaker; Z90.49 Acquired absence of other specified parts of digestive tract; Z87.891 Personal history of nicotine dependence; Z51.5 Encounter for palliative care
CPT/HCPCS: 36415; 80048; 80053; 85025; 85610; 86850; 86900; 86901; 93005; 99284; A9270; J7040

== ENCOUNTER 2017-09-07 13:51 | Emergency (ER) | payer MEDICARE ==
[2017-09-07] MEDS ORDERED: Sodium Chloride 0.9% 500 ML IV ONE (14:40)
--- NOTE | 2017-09-07 15:25 | EDM.PDOC ---
ED HPI GENERAL MEDICAL PROBLEM - General Chief Complaint: General Stated Complaint: WEAKNESS, DIZZY Time Seen by Provider: 09/07/17 14:00 Source of Information: Reports: Patient, Family History Limitations: Reports: No Limitations - History of Present Illness INITIAL COMMENTS - FREE TEXT/NARRATIVE: c/o weak and dizzy pt felt fine this AM, awoke and felt weak and dizzy, drank his usual chocolate milk and ate 2 bananas for bfast, no n/v altho did have slight N after arriving in ED slept okay, feels too weak to walk, no pain, no CP, no sob, no cough, no rhinorrhea h/o CA x 3, ACID/pacer which has discharged in past here with states he can "barely stand" PMH: includes VT, CMP, afib, CAD, HTN, DM, TIA, vertigo last BUN/creat 28/2.2 from 1m ago, baseline 17/1.4 from 3y ago vss rhythm on monitor is paced, EKG accordinly defered weighs self daily, 214 today, had been 217 on furosemide 80 mg BID, 2m ago began taking metolazone qMonday - Related Data Allergies Allergy/AdvReac Type Severity Reaction Status Date / Time meclizine Allergy Confusion Verified 09/07/17 14:17 Penicillins Allergy Hives Verified 09/07/17 14:17 Home Meds: Home Meds Carvedilol [Coreg] 25 mg PO BID 03/17/14 [History] Nitroglycerin [Nitrostat] 0.4 mg SL ASDIRECTED PRN 03/17/14 [History] Omeprazole [Prilosec] 20 mg PO BEDTIME 03/17/14 [History] Potassium Chloride 10 meq PO BID 03/17/14 [History] Amiodarone [Cordarone] 200 mg PO BEDTIME 07/19/15 [History] Mag Hydrox/Al Hydrox/Simeth [Maalox Maximum Strength Susp] 30 ml PO BID PRN [History] glipiZIDE [Glucotrol] 5 mg PO DAILY 01/17/16 [History] Furosemide 80 mg PO BID 01/25/17 [History] Hydrocortisone Valerate [Hydrocortisone Valerate 0.2% Crm] 1 applic TOP BID PRN 01/25/17 [History] Isosorbide Dinitrate 10 mg PO BID 01/25/17 [History] traMADol [Ultram] 50 mg PO QID PRN 01/25/17 [History] Past Medical History HEENT History: Reports: Allergic Rhinitis Other HEENT History: Wears glasses. Cardiovascular History: Reports: Afib, Arrhythmia, CAD, Cardiomyopathy, Heart Failure, High Cholesterol, Hypertension, CA, Other (See Below) Other Cardiovascular History: VT WITH CARDIOVERSION IN JUN 2015, ANTERIOR CA 2006, CA X3, NEAR SYNCOPE, PAROXYSMAL ATRIAL FIBRILLATION, VENTRICULAR TACHYCARDIA. Respiratory History: Reports: Sleep Apnea Other Respiratory History: pt uses oxygen Gastrointestinal History: Reports: GERD Genitourinary History: Reports: Renal Disease Musculoskeletal History: Reports: Arthritis, Fracture Other Musculoskeletal History: R elbow fx, rib fx. Neurological History: Reports: CVA Endocrine/Metabolic History: Reports: Diabetes, Type II, Obesity/BMI 30+ Hematologic History: Reports: Anemia, Blood Transfusion(s) Dermatologic History: Reports: Eczema - Infectious Disease History Infectious Disease History: Reports: Chicken Pox, Measles, Mumps - Past Surgical History HEENT Surgical History: Reports: Eye Surgery Cardiovascular Surgical History: Reports: AICD, Coronary Artery Stent, Pacer GI Surgical History: Reports: Appendectomy, Cholecystectomy, Hernia Repair/Other Social & Family History - Family History Family Medical History: Noncontributory - Tobacco Use Smoking Status *Q: Former Smoker Years of Tobacco use: 54 Packs/Tins Daily: 1 Used Tobacco, but Quit: Yes Month/Year Tobacco Last Used: 2005 Second Hand Smoke Exposure: No - Caffeine Use Caffeine Use: Reports: Coffee - Alcohol Use Days Per Week of Alcohol Use: 0 - Recreational Drug Use Recreational Drug Use: No ED ROS GENERAL - Review of Systems Review Of Systems: See Below Constitutional: Reports: No Symptoms, Weakness HEENT: Reports: No Symptoms Respiratory: Reports: No Symptoms Cardiovascular: Reports: No Symptoms Endocrine: Reports: No Symptoms GI/Abdominal: Reports: No Symptoms : Reports: No Symptoms Musculoskeletal: Reports: No Symptoms Skin: Reports: No Symptoms Neurological: Reports: Dizziness Psychiatric: Reports: No Symptoms Hematologic/Lymphatic: Reports: No Symptoms Immunologic: Reports: No Symptoms ED EXAM, GENERAL - Physical Exam Exam: See Below Exam Limited By: No Limitations General Appearance: Alert, WD/WN, No Apparent Distress, Other (alert, pleasant, NAD) Nose: Normal Inspection, Normal Mucosa, No Blood Throat/Mouth: Normal Inspection, Normal Lips, Normal Teeth, Normal Gums, Normal Oropharynx, Normal Voice, No Airway Compromise Head: Atraumatic, Normocephalic Neck: Normal Inspection, Supple, Non-Tender, Full Range of Motion Respiratory/Chest: No Respiratory Distress, Lungs Clear, Normal Breath Sounds, No Accessory Muscle Use, Chest Non-Tender Cardiovascular: Normal Peripheral Pulses, Regular Rate, Rhythm, No Edema, No Gallop, No JVD, No Murmur, No Rub GI/Abdominal: Normal Bowel Sounds, Soft, Non-Tender Back Exam: Normal Inspection, Full Range of Motion, NT Extremities: Normal Inspection, Normal Range of Motion, Non-Tender, Normal Capillary Refill, Other (dec'd turgor UE, trace edema to knees b/l) Neurological: Alert, Oriented, CN II-XII Intact, Normal Cognition, No Motor/ Sensory Deficits Psychiatric: Normal Affect, Normal Mood Skin Exam: Warm, Dry, Intact, Normal Color, No Rash Course - Vital Signs Last Recorded V/S: Last Vital Signs Temp 36.5 C 09/07/17 13:58 Pulse 68 09/07/17 13:58 Resp 18 09/07/17 13:58 BP 137/67 09/07/17 13:58 Pulse Ox 99 09/07/17 13:58 - Orders/Labs/Meds Orders: Active Orders 24 hr Category Date Time Status UA W/MICROSCOPIC [URIN] Stat Lab 09/07/17 14:40 Ordered Labs: Laboratory Tests 09/07/17 09/07/17 09/07/17 Range/Units 14:45 14:55 14:55 WBC 9.2 (4.5-12.0) X10-3/uL RBC 4.94 (4.30-5.75) x10(6)uL Hgb 14.5 (11.5-15.5) g/dL Hct 43.4 (30.0-51.3) % MCV 87.9 (80-96) fL MCH 29.4 (27.7-33.6) pg MCHC 33.4 (32.2-35.4) g/dL RDW 12.6 (11.5-15.5) % Plt Count 209 (125-369) X10(3)uL MPV 9.9 (7.4-10.4) fL Neut % (Auto) 74.4 (46-82) % Lymph % (Auto) 11.4 L (13-37) % [place] % (Auto) 12.6 H (4-12) % Eos % (Auto) 1 (1.0-5.0) % Baso % (Auto) 1 (0-2) % Neut # (Auto) 6.8 (1.6-8.3) # Lymph # (Auto) 1.0 (0.6-5.0) # [place] # (Auto) 1.2 (0.0-1.3) # Eos # (Auto) 0.1 (0.0-0.8) # Baso # (Auto) 0.1 (0.0-0.2) # POC VBG pH 7.47 H (7.31-7.41) POC VBG pCO2 49.2 (41-51) mmHG POC VBG HCO3 35.8 H (23-28) mmol/L POC VBG Total CO2 37 H (24-29) mmol/L POC VBG Base Excess 12 H (-2-3) mmol/L Sodium 139 (135-145) mmol/L Potassium 3.1 L (3.5-5.3) mmol/L Chloride 95 L D (100-110) mmol/L Carbon Dioxide 37 H (21-32) mmol/L BUN 51 H D (7-18) mg/dL Creatinine 3.3 H* (0.70-1.30) mg/dL Est Cr Clr Drug Dosing 14.20 mL/min Estimated GFR (MDRD) 18 L (>60) BUN/Creatinine Ratio 15.5 (9-20) Glucose 236 H D (80-116) mg/dL Calcium 8.7 (8.6-10.2) mg/dL Magnesium 2.5 (1.8-2.5) mg/dL Total Bilirubin 0.5 (0.1-1.3) mg/dL AST 25 D (5-25) IU/L ALT 44 H D (12-36) U/L Alkaline Phosphatase 92 (56-112) IU/L Troponin I (<0.017-0.056) ng/mL NT-Pro-B Natriuret Pep (<=450) pg/mL Total Protein 7.1 (6.0-8.0) g/dL Albumin 3.0 L (3.2-4.6) g/dL Globulin 4.1 g/dL Albumin/Globulin Ratio 0.7 //18 Range/Units 14:55 WBC (4.5-12.0) X10-3/uL RBC (4.30-5.75) x10(6)uL Hgb (11.5-15.5) g/dL Hct (30.0-51.3) % MCV (80-96) fL MCH (27.7-33.6) pg MCHC (32.2-35.4) g/dL RDW (11.5-15.5) % Plt Count (125-369) X10(3)uL MPV (7.4-10.4) fL Neut % (Auto) (46-82) % Lymph % (Auto) (13-37) % [place] % (Auto) (4-12) % Eos % (Auto) (1.0-5.0) % Baso % (Auto) (0-2) % Neut # (Auto) (1.6-8.3) # Lymph # (Auto) (0.6-5.0) # [place] # (Auto) (0.0-1.3) # Eos # (Auto) (0.0-0.8) # Baso # (Auto) (0.0-0.2) # POC VBG pH (7.31-7.41) POC VBG pCO2 (41-51) mmHG POC VBG HCO3 (23-28) mmol/L POC VBG Total CO2 (24-29) mmol/L POC VBG Base Excess (-2-3) mmol/L Sodium (135-145) mmol/L Potassium (3.5-5.3) mmol/L Chloride (100-110) mmol/L Carbon Dioxide (21-32) mmol/L BUN (7-18) mg/dL Creatinine (0.70-1.30) mg/dL Est Cr Clr Drug Dosing mL/min Estimated GFR (MDRD) (>60) BUN/Creatinine Ratio (9-20) Glucose (80-116) mg/dL Calcium (8.6-10.2) mg/dL Magnesium (1.8-2.5) mg/dL Total Bilirubin (0.1-1.3) mg/dL AST (5-25) IU/L ALT (12-36) U/L Alkaline Phosphatase (56-112) IU/L Troponin I < 0.017 L (<0.017-0.056) ng/mL NT-Pro-B Natriuret Pep 571 H (<=450) pg/mL Total Protein (6.0-8.0) g/dL Albumin (3.2-4.6) g/dL Globulin g/dL Albumin/Globulin Ratio Meds: Medications Discontinued Medications Generic Name Dose Route Start Last Admin Trade Name Penny PRN Reason Stop Dose Admin Sodium Chloride 500 mls @ 999 mls/hr 09/07/17 14:40 Normal Saline IV 09/07/17 15:10 .BOLUS ONE - Re-Assessments/Exams Free Text/Narrative Re-Assessment/Exam: 09/07/17 16:59 labs reviewed with pt, BUN/creat 51/3.3, up from 28/2.2 from 1m ago, up from baseline 17/1.4 from 3y ago pt feeling much better after 500 cc NS, wants to go home and get something to eat K low at 3.1 pt agrees to f/u with Dr Wren and to cut back on diuretics Departure - Departure Time of Disposition: 17:02 Disposition: [facility] Condition: Good Clinical Impression: Metabolic acidosis, Cardiorenal syndrome with renal failure, Hypokalemia, Heart failure, Hyperglycemia - Discharge Information Referrals: Luiz Dunn MD [Primary Care Provider] - Forms: ED Department Discharge Additional Instructions: Do not take furosemide today or tomorrow. Resume your usual dose of furosemide in 2 days (Saturday) until you receive further instructions from Dr Wren. Do not take the second diuretic pill in 2 days. Continue to weigh yourself daily. Increase your potassium pill from 1 tab 2 times a day to 2 tabs 2 times a day. Return to ED if you are feeling worse. - My Orders Last 24 Hours: My Active Orders 09/07/17 14:40 UA W/MICROSCOPIC [URIN] Stat - Assessment/Plan Last 24 Hours: My Active Orders 09/07/17 14:40 UA W/MICROSCOPIC [URIN] Stat
[2017-09-07 18:55] VITALS: BP 108/70
== END 2017-09-07 17:32 | disposition designated cancer center or children's hospital (05) ==
LOC: FB.ED 13:51
DX: I13.0 Hypertensive heart and chronic kidney disease with heart failure and stage 1 through stage 4 chronic kidney disease, or unspecified chronic kidney disease (principal); I50.9 Heart failure, unspecified; E11.22 Type 2 diabetes mellitus with diabetic chronic kidney disease; N18.9 Chronic kidney disease, unspecified; E11.65 Type 2 diabetes mellitus with hyperglycemia; E87.6 Hypokalemia; E87.2 Acidosis; I25.10 Atherosclerotic heart disease of native coronary artery without angina pectoris; I25.2 Old myocardial infarction; G47.30 Sleep apnea, unspecified; I48.0 Paroxysmal atrial fibrillation; E66.9 Obesity, unspecified; D64.9 Anemia, unspecified; Z90.49 Acquired absence of other specified parts of digestive tract; Z95.5 Presence of coronary angioplasty implant and graft; Z86.73 Personal history of transient ischemic attack (TIA), and cerebral infarction without residual deficits; Z95.810 Presence of automatic (implantable) cardiac defibrillator; Z88.8 Allergy status to other drugs, medicaments and biological substances; Z88.0 Allergy status to penicillin; Z79.899 Other long term (current) drug therapy; Z99.81 Dependence on supplemental oxygen; Z87.891 Personal history of nicotine dependence; Z79.84 Long term (current) use of oral hypoglycemic drugs; Z68.36 Body mass index [BMI] 36.0-36.9, adult
CPT/HCPCS: 36415; 80053; 81001; 82803; 83735; 83880; 84484; 85025; 99283; J7040; 99284

== ENCOUNTER 2017-09-16 19:23 | Emergency (ER) | payer MEDICARE ==
--- NOTE | 2017-09-16 20:19 | EDM.PDOC ---
ED HPI GENERAL MEDICAL PROBLEM - General Chief Complaint: General Stated Complaint: ARMANI FEELS LIKE HE IS GOING TO PASS OUT Time Seen by Provider: 09/16/17 20:00 Source of Information: Reports: Patient, Family, Old Records History Limitations: Reports: No Limitations - History of Present Illness INITIAL COMMENTS - FREE TEXT/NARRATIVE: Abraham returns to [facility] ED with ongoing sxs of dizziness ie lt headiness, ED notes from September 07, 2017 reviewed. He did see PCP who suggested some medication reduction last week, but nothing appears to have changed. He denies chest pain, orthopnea, PND, PNA, palpitations, wt gain, swelling in the extremities, or syncope. He also reports some frontal headaches today. He has a PMH of ischemic cardiomyopathy, TIA, Type II DM, AF and CKD. - Related Data Allergies Allergy/AdvReac Type Severity Reaction Status Date / Time meclizine Allergy Confusion Verified 09/16/17 19:34 Penicillins Allergy Hives Verified 09/16/17 19:34 Home Meds: Home Meds Carvedilol [Coreg] 12.5 mg PO BID 03/17/14 [History] Nitroglycerin [Nitrostat] 0.4 mg SL ASDIRECTED PRN 03/17/14 [History] Potassium Chloride 20 meq PO BID 03/17/14 [History] Amiodarone [Cordarone] 200 mg PO BEDTIME 07/19/15 [History] Mag Hydrox/Al Hydrox/Simeth [Maalox Maximum Strength Susp] 30 ml PO BID PRN [History] glipiZIDE [Glucotrol] 5 mg PO DAILY 01/17/16 [History] Furosemide 80 mg PO DAILY 01/25/17 [History] Hydrocortisone Valerate [Hydrocortisone Valerate 0.2% Crm] 1 applic TOP BID PRN 01/25/17 [History] Isosorbide Dinitrate 10 mg PO BID 01/25/17 [History] traMADol [Ultram] 50 mg PO QID PRN 01/25/17 [History] Warfarin [Coumadin] 2.5 mg PO SUTUWETHFRSA 09/16/17 [History] Warfarin [Coumadin] 5 mg PO MO 09/16/17 [History] Past Medical History HEENT History: Reports: Allergic Rhinitis Other HEENT History: Wears glasses. Cardiovascular History: Reports: Afib, Arrhythmia, CAD, Cardiomyopathy, Heart Failure, High Cholesterol, Hypertension, [place], Pacemaker, Other (See Below) Other Cardiovascular History: VT WITH CARDIOVERSION IN JUN 2015, ANTERIOR [place] 2006, [place] X3, NEAR SYNCOPE, PAROXYSMAL ATRIAL FIBRILLATION, VENTRICULAR TACHYCARDIA. Respiratory History: Reports: Sleep Apnea Other Respiratory History: pt uses oxygen Gastrointestinal History: Reports: GERD Genitourinary History: Reports: Renal Disease Musculoskeletal History: Reports: Arthritis, Fracture Other Musculoskeletal History: R elbow fx, rib fx. Neurological History: Reports: CVA Endocrine/Metabolic History: Reports: Diabetes, Type II, Obesity/BMI 30+ Hematologic History: Reports: Anemia, Blood Transfusion(s) Dermatologic History: Reports: Eczema - Infectious Disease History Infectious Disease History: Reports: Chicken Pox, Measles, Mumps - Past Surgical History HEENT Surgical History: Reports: Eye Surgery Cardiovascular Surgical History: Reports: AICD, Coronary Artery Stent, Pacer GI Surgical History: Reports: Appendectomy, Cholecystectomy, Hernia Repair/Other Social & Family History - Family History Family Medical History: Noncontributory - Tobacco Use Smoking Status *Q: Never Smoker Years of Tobacco use: 54 Packs/Tins Daily: 1 Used Tobacco, but Quit: Yes Month/Year Tobacco Last Used: 2005 Second Hand Smoke Exposure: No - Caffeine Use Caffeine Use: Reports: Soda, Tea - Alcohol Use Days Per Week of Alcohol Use: 0 - Recreational Drug Use Recreational Drug Use: No ED ROS GENERAL - Review of Systems Review Of Systems: See Below Constitutional: Reports: Other (poor exercise tolerance) HEENT: Reports: No Symptoms Respiratory: Reports: No Symptoms Cardiovascular: Reports: Lightheadedness Endocrine: Reports: No Symptoms GI/Abdominal: Reports: No Symptoms : Reports: No Symptoms Musculoskeletal: Reports: No Symptoms Skin: Reports: No Symptoms Neurological: Reports: Dizziness, Headache Psychiatric: Reports: No Symptoms Hematologic/Lymphatic: Reports: Anemia Immunologic: Reports: No Symptoms ED EXAM, GENERAL - Physical Exam Exam: See Below Exam Limited By: No Limitations General Appearance: Alert, WD/WN, No Apparent Distress, Obese Eye Exam: Bilateral Eye: EOMI, Normal Inspection, PERRL Ears: Normal External Exam, Normal TMs Nose: Normal Inspection Throat/Mouth: Normal Inspection, Normal Oropharynx Head: Normocephalic Neck: Normal Inspection, Supple, Non-Tender, Full Range of Motion Respiratory/Chest: Lungs Clear, Chest Non-Tender, Decreased Breath Sounds Cardiovascular: Regular Rate, Rhythm, No JVD, No Murmur, Other (1+ edema ankles) GI/Abdominal: Normal Bowel Sounds, Soft, Non-Tender, No Organomegaly, No Distention, No Mass (Male) Exam: No Hernia Rectal (Males) Exam: Deferred Back Exam: Normal Inspection Extremities: Normal Inspection, Pedal Edema (1+) Psychiatric: Normal Affect, Normal Mood Skin Exam: Warm, Dry, Intact, Ecchymosis Lymphatic: No Adenopathy Course - Vital Signs Text/Narrative:: Abraham remained stable at the [facility] ED. He was resting comfortably without 02 or other assistance awaiting lab results: the CBC was baseline, BMP noted Cr 2.1 is improved from last week. His BNP 2376 has increased from BNP 571 last week. Current sxs may be related to some interval cardiac decompensation, and a Cardiology assessment is suggested. He will carry copies of reports to Cardiology at [facility] tomorrow. No change in meds was suggested tonight. Last Recorded V/S: Last Vital Signs Temp 36.4 C 09/16/17 19:25 Pulse 75 09/16/17 19:25 Resp 15 09/16/17 19:25 BP 157/81 H 09/16/17 19:25 Pulse Ox 99 09/16/17 19:25 - Orders/Labs/Meds Labs: Laboratory Tests 09/16/17 09/16/17 09/16/17 Range/Units 20:30 20:30 20:30 WBC 7.9 (4.5-12.0) X10-3/uL RBC 4.69 (4.30-5.75) x10(6)uL Hgb 13.8 (11.5-15.5) g/dL Hct 41.4 (30.0-51.3) % MCV 88.3 (80-96) fL MCH 29.5 (27.7-33.6) pg MCHC 33.4 (32.2-35.4) g/dL RDW 12.8 (11.5-15.5) % Plt Count 209 (125-369) X10(3)uL MPV 9.2 (7.4-10.4) fL Neut % (Auto) 71.6 (46-82) % Lymph % (Auto) 14.8 (13-37) % Brooke % (Auto) 11.3 (4-12) % Eos % (Auto) 2 (1.0-5.0) % Baso % (Auto) 1 (0-2) % Neut # (Auto) 5.6 (1.6-8.3) # Lymph # (Auto) 1.2 (0.6-5.0) # Brooke # (Auto) 0.9 (0.0-1.3) # Eos # (Auto) 0.1 (0.0-0.8) # Baso # (Auto) 0.1 (0.0-0.2) # PT (8.7-11.1) INR (0.89-1.13) Sodium 141 (135-145) mmol/L Potassium 4.2 D (3.5-5.3) mmol/L Chloride 104 D (100-110) mmol/L Carbon Dioxide 27 (21-32) mmol/L BUN 27 H D (7-18) mg/dL Creatinine 2.1 H* (0.70-1.30) mg/dL Est Cr Clr Drug Dosing 22.32 mL/min Estimated GFR (MDRD) 30 L (>60) BUN/Creatinine Ratio 12.9 (9-20) Glucose 174 H (80-116) mg/dL Calcium 8.3 L (8.6-10.2) mg/dL NT-Pro-B Natriuret Pep 2376 H* (<=450) pg/mL 09/16/17 Range/Units 20:30 WBC (4.5-12.0) X10-3/uL RBC (4.30-5.75) x10(6)uL Hgb (11.5-15.5) g/dL Hct (30.0-51.3) % MCV (80-96) fL MCH (27.7-33.6) pg MCHC (32.2-35.4) g/dL RDW (11.5-15.5) % Plt Count (125-369) X10(3)uL MPV (7.4-10.4) fL Neut % (Auto) (46-82) % Lymph % (Auto) (13-37) % Brooke % (Auto) (4-12) % Eos % (Auto) (1.0-5.0) % Baso % (Auto) (0-2) % Neut # (Auto) (1.6-8.3) # Lymph # (Auto) (0.6-5.0) # Brooke # (Auto) (0.0-1.3) # Eos # (Auto) (0.0-0.8) # Baso # (Auto) (0.0-0.2) # PT 26.1 H (8.7-11.1) INR 2.53 H (0.89-1.13) Sodium (135-145) mmol/L Potassium (3.5-5.3) mmol/L Chloride (100-110) mmol/L Carbon Dioxide (21-32) mmol/L BUN (7-18) mg/dL Creatinine (0.70-1.30) mg/dL Est Cr Clr Drug Dosing mL/min Estimated GFR (MDRD) (>60) BUN/Creatinine Ratio (9-20) Glucose (80-116) mg/dL Calcium (8.6-10.2) mg/dL NT-Pro-B Natriuret Pep (<=450) pg/mL Departure - Departure Time of Disposition: 21:52 Disposition: Home, Self-Care 01 Condition: Fair Clinical Impression: Congestive cardiomyopathy - Discharge Information Referrals: Luiz Dunn MD [Primary Care Provider] - Forms: ED Department Discharge - Problem List & Annotations (1) Congestive cardiomyopathy SNOMED Code(s): 322130178 Code(s): I42.0 - DILATED CARDIOMYOPATHY Status: Acute Priority: Low Current Visit: Yes Annotation/Comment:: Chronic congestive cardiomyopathy. An echocardiogram is scheduled for tomorrow at 10:00 am, and will follow up at that time. Follow up with Cardiology at [facility] tomorrow. - Problem List Review Problem List Initiated/Reviewed/Updated: Yes - Assessment/Plan Plan: Follow up with Cardiology.
[2017-09-16 22:09] VITALS: BP 164/76
== END 2017-09-16 22:15 | disposition home or self-care (01) ==
LOC: FB.ED 19:23
DX: I42.0 Dilated cardiomyopathy (principal); I25.10 Atherosclerotic heart disease of native coronary artery without angina pectoris; I48.91 Unspecified atrial fibrillation; K21.9 Gastro-esophageal reflux disease without esophagitis; I25.2 Old myocardial infarction; E11.22 Type 2 diabetes mellitus with diabetic chronic kidney disease; D64.9 Anemia, unspecified; I13.0 Hypertensive heart and chronic kidney disease with heart failure and stage 1 through stage 4 chronic kidney disease, or unspecified chronic kidney disease; I50.9 Heart failure, unspecified; E78.00 Pure hypercholesterolemia, unspecified; E66.9 Obesity, unspecified; N18.9 Chronic kidney disease, unspecified; Z90.49 Acquired absence of other specified parts of digestive tract; Z88.0 Allergy status to penicillin; Z79.899 Other long term (current) drug therapy; Z88.8 Allergy status to other drugs, medicaments and biological substances; Z79.84 Long term (current) use of oral hypoglycemic drugs; Z79.01 Long term (current) use of anticoagulants; Z95.0 Presence of cardiac pacemaker; Z86.73 Personal history of transient ischemic attack (TIA), and cerebral infarction without residual deficits; Z68.36 Body mass index [BMI] 36.0-36.9, adult
CPT/HCPCS: 36415; 80048; 83880; 85025; 85610; 99284

== ENCOUNTER 2018-02-17 11:31 | Emergency (ER) | payer MEDICARE ==
[2018-02-17] MEDS: Nitroglycerin 0.4 MG Tab.SL SL PRN ×2 (11:40→11:45)
[2018-02-17] MEDS ORDERED: Sodium Chloride 0.9% 10 ML Syringe FLUSH PRN (11:45)
[2018-02-17] MEDS ORDERED: Nitroglycerin 0.3 MG Tab.SL SL PRN (11:47)
--- NOTE | 2018-02-17 11:52 | EDM.PDOC ---
ED HPI GENERAL MEDICAL PROBLEM - General Chief Complaint: Cardiovascular Problem Stated Complaint: chest pain Time Seen by Provider: 02/17/18 11:40 Source of Information: Reports: Patient, Family, Old Records History Limitations: Reports: No Limitations - History of Present Illness INITIAL COMMENTS - FREE TEXT/NARRATIVE: Abraham comes into [facility] ED with a 20 minute hx of precordial chest pain 8/10, radiating into the back. There was no radiation into the shoulders, neck or jaw. There was no sweats, SOB, nausea, or lt headiness. He did not take any NTG. Upon arrival, VS noted BP 187/87, VR 60 and paced, RR 26, Temp 98 deg F. He was given TNG .4 mg sl x 2 and pain improved to 0/10 within 8 min. He is resting comfortably. - Related Data Allergies Allergy/AdvReac Type Severity Reaction Status Date / Time meclizine Allergy Confusion Verified 09/16/17 19:34 Penicillins Allergy Hives Verified 09/16/17 19:34 Home Meds: Home Meds Carvedilol [Coreg] 12.5 mg PO BID 03/17/14 [History] Nitroglycerin [Nitrostat] 0.4 mg SL ASDIRECTED PRN 03/17/14 [History] Potassium Chloride 20 meq PO BID 03/17/14 [History] Amiodarone [Cordarone] 200 mg PO BEDTIME 07/19/15 [History] Mag Hydrox/Al Hydrox/Simeth [Maalox Maximum Strength Susp] 30 ml PO BID PRN [History] glipiZIDE [Glucotrol] 5 mg PO DAILY 01/17/16 [History] Furosemide 80 mg PO DAILY 01/25/17 [History] Hydrocortisone Valerate [Hydrocortisone Valerate 0.2% Crm] 1 applic TOP BID PRN 01/25/17 [History] Isosorbide Dinitrate 10 mg PO BID 01/25/17 [History] traMADol [Ultram] 50 mg PO QID PRN 01/25/17 [History] Warfarin [Coumadin] 2.5 mg PO SUTUWETHFRSA 09/16/17 [History] Warfarin [Coumadin] 5 mg PO MO 09/16/17 [History] Past Medical History HEENT History: Reports: Allergic Rhinitis Other HEENT History: Wears glasses. Cardiovascular History: Reports: Afib, Arrhythmia, CAD, Cardiomyopathy, Heart Failure, High Cholesterol, Hypertension, [place], Pacemaker, Other (See Below) Other Cardiovascular History: VT WITH CARDIOVERSION IN JUN 2015, ANTERIOR [place] 2006, [place] X3, NEAR SYNCOPE, PAROXYSMAL ATRIAL FIBRILLATION, VENTRICULAR TACHYCARDIA. Respiratory History: Reports: Sleep Apnea Other Respiratory History: pt uses oxygen Gastrointestinal History: Reports: GERD Genitourinary History: Reports: Renal Disease Musculoskeletal History: Reports: Arthritis, Fracture Other Musculoskeletal History: R elbow fx, rib fx. Neurological History: Reports: CVA Endocrine/Metabolic History: Reports: Diabetes, Type II, Obesity/BMI 30+ Hematologic History: Reports: Anemia, Blood Transfusion(s) Dermatologic History: Reports: Eczema - Infectious Disease History Infectious Disease History: Reports: Chicken Pox, Measles, Mumps - Past Surgical History HEENT Surgical History: Reports: Eye Surgery Cardiovascular Surgical History: Reports: AICD, Coronary Artery Stent, Pacer GI Surgical History: Reports: Appendectomy, Cholecystectomy, Hernia Repair/Other Social & Family History - Family History Family Medical History: Noncontributory - Caffeine Use Caffeine Use: Reports: Soda, Tea ED ROS GENERAL - Review of Systems Review Of Systems: See Below Constitutional: Reports: No Symptoms HEENT: Reports: No Symptoms Respiratory: Reports: No Symptoms Cardiovascular: Reports: Chest Pain Endocrine: Reports: No Symptoms GI/Abdominal: Reports: No Symptoms : Reports: No Symptoms Musculoskeletal: Reports: No Symptoms Skin: Reports: Diaphoresis Neurological: Reports: No Symptoms Psychiatric: Reports: No Symptoms Hematologic/Lymphatic: Reports: No Symptoms Immunologic: Reports: No Symptoms ED EXAM, GENERAL - Physical Exam Exam: See Below Exam Limited By: No Limitations General Appearance: Alert, WD/WN, Mild Distress, Obese Eye Exam: Bilateral Eye: EOMI, Normal Inspection, PERRL Ears: Normal External Exam Nose: Normal Inspection Throat/Mouth: Normal Inspection, Normal Oropharynx Head: Normocephalic Neck: Normal Inspection Respiratory/Chest: No Respiratory Distress, Lungs Clear, Normal Breath Sounds, No Accessory Muscle Use, Chest Non-Tender Cardiovascular: Regular Rate, Rhythm, No JVD, No Murmur, Other (paced rhythm) GI/Abdominal: Normal Bowel Sounds, Soft, Non-Tender, No Organomegaly, No Distention, No Mass (Male) Exam: Deferred Rectal (Males) Exam: Deferred Back Exam: Normal Inspection Extremities: Normal Inspection, Normal Range of Motion, Non-Tender, Pedal Edema (trace) Neurological: Alert, Oriented, CN II-XII Intact, Normal Cognition, No Motor/ Sensory Deficits Psychiatric: Normal Affect, Normal Mood Skin Exam: Warm, Diaphoretic Lymphatic: No Adenopathy Course - Vital Signs Text/Narrative:: Following initial management of chest pain, some screening labs were obtained: the CBC and CMP remained baseline; BNP 1255 is improved from levels of 2326 obtained on 09/16/17; ekg 12 lead is unchanged; chest x ray improved from 08/06/16 ; troponin I <0.017. He remained asx during ED visit. - Orders/Labs/Meds Orders: Active Orders 24 hr Category Date Time Status Chest 1V Frontal [CR] Stat Exams 02/17/18 11:45 Taken Nitroglycerin [Nitrostat] Med 02/17/18 11:47 Active 0.3 mg SL Q5M PRN Sodium Chloride 0.9% [Saline Flush] Med 02/17/18 11:45 Active 10 ml FLUSH ASDIRECTED PRN Peripheral IV Insertion Adult [OM.PC] Routine Oth 02/17/18 11:45 Ordered EKG 12 Lead [EK] Routine Ther 02/17/18 11:45 Ordered Medication Orders Nitroglycerin (Nitrostat) 0.3 mg SL Q5M PRN PRN Reason: Chest Pain Sodium Chloride (Saline Flush) 10 ml FLUSH ASDIRECTED PRN PRN Reason: Keep Vein Open Labs: Laboratory Tests 02/17/18 02/17/18 02/17/18 Range/Units 11:55 11:55 11:55 WBC 8.1 (4.5-12.0) X10-3/uL RBC 4.98 (4.30-5.75) x10(6)uL Hgb 13.3 (11.5-15.5) g/dL Hct 40.6 (30.0-51.3) % MCV 81.4 (80-96) fL MCH 26.7 L (27.7-33.6) pg MCHC 32.8 (32.2-35.4) g/dL RDW 15.2 (11.5-15.5) % Plt Count 227 (125-369) X10(3)uL MPV 9.3 (7.4-10.4) fL Neut % (Auto) 68.7 (46-82) % Lymph % (Auto) 14.8 (13-37) % Vance % (Auto) 14.0 H (4-12) % Eos % (Auto) 2 (1.0-5.0) % Baso % (Auto) 1 (0-2) % Neut # (Auto) 5.6 (1.6-8.3) # Lymph # (Auto) 1.2 (0.6-5.0) # Vance # (Auto) 1.1 (0.0-1.3) # Eos # (Auto) 0.2 (0.0-0.8) # Baso # (Auto) 0.0 (0.0-0.2) # Sodium 138 (135-145) mmol/L Potassium 4.1 (3.5-5.3) mmol/L Chloride 102 (100-110) mmol/L Carbon Dioxide 33 H (21-32) mmol/L BUN 21 H (7-18) mg/dL Creatinine 1.9 H (0.70-1.30) mg/dL Est Cr Clr Drug Dosing TNP Estimated GFR (MDRD) 34 L (>60) BUN/Creatinine Ratio 11.1 (9-20) Glucose 180 H (80-116) mg/dL Calcium 7.8 L (8.6-10.2) mg/dL Total Bilirubin 0.5 (0.1-1.3) mg/dL AST 18 D (5-25) IU/L ALT 33 D (12-36) U/L Alkaline Phosphatase 112 (56-112) IU/L Troponin I < 0.017 L (<0.017-0.056) ng/mL NT-Pro-B Natriuret Pep 1255 H* (<=450) pg/mL Total Protein 7.2 (6.0-8.0) g/dL Albumin 3.0 L (3.2-4.6) g/dL Globulin 4.2 g/dL Albumin/Globulin Ratio 0.7 Meds: Medications Generic Name Dose Route Start Last Admin Trade Name Freq PRN Reason Stop Dose Admin Nitroglycerin 0.3 mg 02/17/18 11:47 Nitrostat SL Q5M PRN Chest Pain Sodium Chloride 10 ml 02/17/18 11:45 Saline Flush FLUSH ASDIRECTED PRN Keep Vein Open Departure - Departure Time of Disposition: 12:56 Disposition: Home, Self-Care 01 Condition: Good Clinical Impression: Angina pectoris Referrals: Luiz Dunn MD [Primary Care Provider] - Forms: ED Department Discharge - Problem List & Annotations (1) Angina pectoris SNOMED Code(s): 988423813 Code(s): I20.9 - ANGINA PECTORIS, UNSPECIFIED Status: Acute Current Visit : Yes Annotation/Comment:: Apparent episode of angina pectoris that resolved with NTG. He needs medical follow up this week, and an appt was made with his PCP. He will continue current meds. - Problem List Review Problem List Initiated/Reviewed/Updated: Yes - My Orders Last 24 Hours: My Active Orders 02/17/18 11:45 Chest 1V Frontal [CR] Stat Sodium Chloride 0.9% [Saline Flush] 10 ml FLUSH ASDIRECTED PRN Peripheral IV Insertion Adult [OM.PC] Routine EKG 12 Lead [EK] Routine 02/17/18 11:47 Nitroglycerin [Nitrostat] 0.3 mg SL Q5M PRN - Assessment/Plan Last 24 Hours: My Active Orders 02/17/18 11:45 Chest 1V Frontal [CR] Stat Sodium Chloride 0.9% [Saline Flush] 10 ml FLUSH ASDIRECTED PRN Peripheral IV Insertion Adult [OM.PC] Routine EKG 12 Lead [EK] Routine 02/17/18 11:47 Nitroglycerin [Nitrostat] 0.3 mg SL Q5M PRN Plan: Follow up with PCP on February 20.
[2018-02-17 19:43] VITALS: BP 149/85
--- NOTE | 2018-02-20 14:48 | CR ---
INDICATION: Chest pain. CHEST, AP PORTABLE VIEW: FINDINGS: I am correlating to an earlier x-ray from 08/06/2016. Probably no significant interval change. The patient is of larger body habitus. As before, there is a left subclavian transvenous pacer and defibrillator. No pneumothorax. There is some volume loss on the right. There is some elevation of the dome of the right diaphragm, as before. There is a slight shift of the mediastinum from the left to the right, as before. There are some areas of pleural and parenchymal scarring in the right mid and right lower chest. I feel the lungs are clear of acute infiltrate or effusion. The heart size is enlarged, as before. No definite CHF. There is a very tortuous and ectatic descending thoracic aorta, as before. There is diffuse osteopenia. IMPRESSION: Stable chest x-ray, compared with 08/06/2016. Areas of pleural and parenchymal scarring are identified, especially on the right. No acute pneumonia or CHF. MTDD
== END 2018-02-17 13:15 | disposition home or self-care (01) ==
LOC: FB.ED 11:31
DX: I20.9 Angina pectoris, unspecified (principal); I11.0 Hypertensive heart disease with heart failure; I50.9 Heart failure, unspecified; E78.00 Pure hypercholesterolemia, unspecified; I25.2 Old myocardial infarction; E11.9 Type 2 diabetes mellitus without complications; Z79.84 Long term (current) use of oral hypoglycemic drugs; Z88.0 Allergy status to penicillin; Z88.8 Allergy status to other drugs, medicaments and biological substances; Z79.899 Other long term (current) drug therapy; Z79.01 Long term (current) use of anticoagulants
CPT/HCPCS: 36415; 71045; 80053; 83880; 84484; 85025; 93005; 99285; A9270-GY; J7050

== ENCOUNTER 2019-05-23 00:10 | Emergency (ER) | payer MEDICARE ==
--- NOTE | 2019-05-23 00:39 | EDM.PDOC ---
ED HPI GENERAL MEDICAL PROBLEM - General Chief Complaint: Gastrointestinal Problem Stated Complaint: bloody stood Time Seen by Provider: 05/23/19 00:15 Source of Information: Reports: Patient History Limitations: Reports: No Limitations - History of Present Illness INITIAL COMMENTS - FREE TEXT/NARRATIVE: Patient presented to the ED because of i episode of bright red blood in his stool. He denies any abdominal pain,N/V. He is taking coumadin for AFIB. - Related Data Allergies Allergy/AdvReac Type Severity Reaction Status Date / Time meclizine Allergy Confusion Verified 05/23/19 00:20 Penicillins Allergy Hives Verified 05/23/19 00:20 Home Meds: Home Meds Potassium Chloride 20 meq PO BID 03/17/14 [History] Amiodarone [Cordarone] 200 mg PO BEDTIME 07/19/15 [History] glipiZIDE [Glucotrol] 10 mg PO DAILY 01/17/16 [History] Furosemide 80 mg PO BID 01/25/17 [History] Isosorbide Dinitrate 10 mg PO BID 01/25/17 [History] Warfarin [Coumadin] 5 mg PO ASDIRECTED 09/16/17 [History] Carvedilol [Coreg] 6.25 mg PO DAILY 05/23/19 [History] Ranitidine [Zantac] 75 mg PO BEDTIME 05/23/19 [History] Warfarin [Coumadin] 2.5 mg PO SUTUTHSA 05/23/19 [History] Past Medical History HEENT History: Reports: Allergic Rhinitis Other HEENT History: Wears glasses. Cardiovascular History: Reports: Afib, Arrhythmia, CAD, Cardiomyopathy, Heart Failure, High Cholesterol, Hypertension, [place], Pacemaker, Other (See Below) Other Cardiovascular History: VT WITH CARDIOVERSION IN JUN 2015, ANTERIOR [place] 2006, [place] X3, NEAR SYNCOPE, PAROXYSMAL ATRIAL FIBRILLATION, VENTRICULAR TACHYCARDIA. Respiratory History: Reports: Sleep Apnea Other Respiratory History: pt uses oxygen Gastrointestinal History: Reports: GERD Genitourinary History: Reports: Renal Disease Musculoskeletal History: Reports: Arthritis, Fracture Other Musculoskeletal History: R elbow fx, rib fx. Neurological History: Reports: CVA Endocrine/Metabolic History: Reports: Diabetes, Type II, Obesity/BMI 30+ Hematologic History: Reports: Anemia, Blood Transfusion(s) Dermatologic History: Reports: Eczema - Infectious Disease History Infectious Disease History: Reports: Chicken Pox, Measles, Mumps - Past Surgical History HEENT Surgical History: Reports: Eye Surgery Cardiovascular Surgical History: Reports: AICD, Coronary Artery Stent, Pacer GI Surgical History: Reports: Appendectomy, Cholecystectomy, Hernia Repair/Other Social & Family History - Family History Family Medical History: Noncontributory - Tobacco Use Smoking Status *Q: Former Smoker Used Tobacco, but Quit: Yes Month/Year Tobacco Last Used: Unknown - Caffeine Use Caffeine Use: Reports: Soda - Recreational Drug Use Recreational Drug Use: No ED ROS GENERAL - Review of Systems Review Of Systems: See Below Constitutional: Reports: No Symptoms HEENT: Reports: No Symptoms Respiratory: Reports: No Symptoms Cardiovascular: Reports: No Symptoms Endocrine: Reports: No Symptoms GI/Abdominal: Reports: No Symptoms, Bloody Stool : Reports: No Symptoms Musculoskeletal: Reports: No Symptoms Skin: Reports: No Symptoms Neurological: Reports: No Symptoms Psychiatric: Reports: No Symptoms Hematologic/Lymphatic: Reports: No Symptoms Immunologic: Reports: No Symptoms ED EXAM, GI/ABD - Physical Exam Exam: See Below Exam Limited By: No Limitations General Appearance: Alert, WD/WN, No Apparent Distress GI/Abdominal Exam: Normal Bowel Sounds, Soft, Non-Tender, No Organomegaly, No Distention, No Abnormal Bruit Back Exam: Normal Inspection, Full Range of Motion, CVA Tenderness (R) Extremities: Normal Inspection, Normal Range of Motion, Non-Tender Neurological: Alert, Oriented, CN II-XII Intact, Normal Cognition, Normal Gait, Normal Reflexes, No Motor/Sensory Deficits Psychiatric: Normal Affect, Normal Mood Skin Exam: Warm, Dry, Intact, Normal Color Course - Vital Signs Text/Narrative:: hb INR Last Recorded V/S: Last Vital Signs Temp 35.9 C 05/23/19 00:15 Pulse 74 05/23/19 00:15 Resp 22 H 05/23/19 00:15 BP 167/76 H 05/23/19 00:20 Pulse Ox 98 05/23/19 00:15 - Orders/Labs/Meds Orders: Active Orders 24 hr Category Date Time Status CBC WITH AUTO DIFF [HEME] Stat Lab 05/23/19 00:25 Received INR,PT,PROTHROMBIN TIME [COAG] Stat Lab 05/23/19 00:25 Received Departure - Departure Time of Disposition: 01:10 Disposition: Home, Self-Care 01 Condition: Good Clinical Impression: Bloody stool - Discharge Information Referrals: Luiz Dunn MD [Primary Care Provider] - Forms: ED Department Discharge Additional Instructions: please read discharge instructions on bloody stool do not take any aspirin, aleve, advil for a week do not take your coumadin for days follow up on Saturday to recheck you INR - My Orders Last 24 Hours: My Active Orders 05/23/19 00:25 CBC WITH AUTO DIFF [HEME] Stat INR,PT,PROTHROMBIN TIME [COAG] Stat - Assessment/Plan Last 24 Hours: My Active Orders 05/23/19 00:25 CBC WITH AUTO DIFF [HEME] Stat INR,PT,PROTHROMBIN TIME [COAG] Stat
[2019-05-23 01:07] VITALS: BP 153/65; PULSE 62
== END 2019-05-23 01:05 | disposition home or self-care (01) ==
LOC: FB.ED 00:10
DX: K92.1 Melena (principal); I48.91 Unspecified atrial fibrillation; I25.2 Old myocardial infarction; I11.0 Hypertensive heart disease with heart failure; I50.9 Heart failure, unspecified; I25.10 Atherosclerotic heart disease of native coronary artery without angina pectoris; Z88.8 Allergy status to other drugs, medicaments and biological substances; Z88.0 Allergy status to penicillin; Z79.01 Long term (current) use of anticoagulants; Z87.891 Personal history of nicotine dependence
CPT/HCPCS: 36415; 85025; 85610; 99284

== ENCOUNTER 2019-06-12 10:53 | Emergency (ER) | payer MEDICARE ==
--- NOTE | 2019-06-12 12:36 | EDM.PDOC ---
ED HPI GENERAL MEDICAL PROBLEM - General Chief Complaint: Flank Pain Stated Complaint: L SIDE PAIN Time Seen by Provider: 06/12/19 11:40 Source of Information: Reports: Patient History Limitations: Reports: No Limitations - History of Present Illness INITIAL COMMENTS - FREE TEXT/NARRATIVE: 84-year-old male who states about 3-4 days ago he had a coughing episode that was particularly hard (he has had a chronic cough for quite some time) and he had a sharp pain in his left mid back and left lateral chest. Since that time he has had pain in his left lateral chest and left mid back and posterior chest that has been fairly continual but with sharp spikes when he coughs or moves certain ways. He has had no nausea or vomiting. He has had no fevers or chills. He does report that he brings up some phlegm occasionally that is white. No hemoptysis. No shortness of breath. No nausea or vomiting. No abdominal pain. No dysuria or hematuria. He currently is rating the pain as a 9/10 but he does not appear to be in any significant distress at this point. He had a similar pain on his right side after a coughing episode about a month ago but it was less severe and went away on its own and he did not seek any medical attention in regard to this. There are no other associated signs or symptoms. There are no other modifying factors. 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: Reports: Other (see below) (Tramadol) - Related Data Allergies Allergy/AdvReac Type Severity Reaction Status Date / Time meclizine Allergy Confusion Verified 06/12/19 12:13 Penicillins Allergy Hives Verified 06/12/19 12:13 Home Meds: Home Meds Potassium Chloride 20 meq PO BID 03/17/14 [History] Amiodarone [Cordarone] 200 mg PO BEDTIME 07/19/15 [History] glipiZIDE [Glucotrol] 10 mg PO BID 01/17/16 [History] Furosemide 80 mg PO BID 01/25/17 [History] Isosorbide Dinitrate 10 mg PO BID 01/25/17 [History] Warfarin [Coumadin] 5 mg PO MOWEFR 09/16/17 [History] Carvedilol [Coreg] 6.25 mg PO DAILY 05/23/19 [History] Ranitidine [Zantac] 75 mg PO BEDTIME 05/23/19 [History] Warfarin [Coumadin] 2.5 mg PO SUTUTHSA 05/23/19 [History] Doxycycline Monohydrate 100 mg PO BID 10 Days #20 tablet 06/12/19 [Rx] traMADol HCl [Tramadol HCl] 50 mg PO Q6H PRN #14 tablet 06/12/19 [Rx] Past Medical History HEENT History: Reports: Allergic Rhinitis Other HEENT History: Wears glasses. Cardiovascular History: Reports: Afib, Arrhythmia, CAD, Cardiomyopathy, Heart Failure, High Cholesterol, Hypertension, UT, Pacemaker, Other (See Below) Other Cardiovascular History: VT WITH CARDIOVERSION IN JUN 2015, ANTERIOR UT 2005, UT X3, NEAR SYNCOPE, PAROXYSMAL ATRIAL FIBRILLATION, VENTRICULAR TACHYCARDIA. Respiratory History: Reports: Sleep Apnea Other Respiratory History: pt uses oxygen at bedtime Gastrointestinal History: Reports: GERD Genitourinary History: Reports: Chronic Renal Insuffiency Musculoskeletal History: Reports: Arthritis, Fracture Other Musculoskeletal History: R elbow fx, rib fx. Neurological History: Reports: CVA, TIA Endocrine/Metabolic History: Reports: Diabetes, Type II, Obesity/BMI 30+ Hematologic History: Reports: Anemia, Blood Transfusion(s) Dermatologic History: Reports: Eczema - Infectious Disease History Infectious Disease History: Reports: Chicken Pox, Measles, Mumps - Past Surgical History HEENT Surgical History: Reports: Eye Surgery Cardiovascular Surgical History: Reports: AICD, Coronary Artery Stent, Pacer GI Surgical History: Reports: Appendectomy, Cholecystectomy, Hernia Repair/Other Social & Family History - Tobacco Use Smoking Status *Q: Former Smoker (Quit in 2005.) - Caffeine Use Caffeine Use: Reports: Soda - Alcohol Use Alcohol Use History: No - Living Situation & Occupation Living situation: Reports: , with Spouse Occupation: Retired ED ROS GENERAL - Review of Systems Review Of Systems: See Below Constitutional: Reports: No Symptoms HEENT: Reports: No Symptoms Respiratory: Reports: Cough (Chronic) Cardiovascular: Reports: Other (As above with left lateral and posterior chest pain/back pain). Denies: Palpitations Endocrine: Reports: Other (His blood sugars are typically not that well- controlled) GI/Abdominal: Reports: No Symptoms : Reports: No Symptoms Musculoskeletal: Reports: Back Pain Skin: Reports: No Symptoms Neurological: Reports: No Symptoms Hematologic/Lymphatic: Reports: Easy Bleeding, Easy Bruising, Other (On Coumadin ) Immunologic: Reports: No Symptoms ED EXAM, GENERAL - Physical Exam Exam: See Below Exam Limited By: No Limitations General Appearance: Alert, WD/WN, Mild Distress, Other (Respiratory distress.) Eye Exam: Bilateral Eye: EOMI, Normal Inspection Ears: Normal External Exam, Hearing Grossly Normal Ear Exam: Bilateral Ear: Auricle Normal Nose: Normal Inspection, Normal Mucosa, No Blood Throat/Mouth: Normal Inspection, Normal Oropharynx, Normal Voice, No Airway Compromise Head: Atraumatic, Normocephalic Neck: Normal Inspection, Supple, Non-Tender, Full Range of Motion Respiratory/Chest: No Respiratory Distress, Lungs Clear, Normal Breath Sounds, No Accessory Muscle Use, Other (Tender to palpation over the left posterior lateral chest/mid back. No crepitus or deformity. No subcutaneous emphysema.) Cardiovascular: Normal Peripheral Pulses, Regular Rate, Rhythm, No Gallop, No Murmur Peripheral Pulses: 2+: Radial (L), Radial (R) GI/Abdominal: Normal Bowel Sounds, Soft, Non-Tender, No Mass Back Exam: Other (Tenderness as above.). No: CVA Tenderness (R), CVA Tenderness (L), Muscle Spasm Extremities: Normal Inspection, Normal Range of Motion, Non-Tender, No Pedal Edema, Normal Capillary Refill Neurological: Alert, Oriented, CN II-XII Intact, Normal Cognition, No Motor/ Sensory Deficits Skin Exam: Warm, Dry, Intact, Normal Color, No Rash Course - Vital Signs Last Recorded V/S: Last Vital Signs Temp 36.3 C 06/12/19 11:18 Pulse 59 L 06/12/19 12:20 Resp 16 06/12/19 12:20 BP 139/64 06/12/19 12:20 Pulse Ox 96 06/12/19 12:20 - Orders/Labs/Meds Labs: Laboratory Tests 06/12/19 06/12/19 06/12/19 Range/Units 12:05 12:05 12:05 WBC 10.0 (4.5-12.0) X10-3/uL RBC 5.22 (4.30-5.75) x10(6)uL Hgb 12.4 L (13.5-17.8) g/dL Hct 40.0 (30.0-51.3) % MCV 76.8 L (80-96) fL MCH 23.8 L (27.7-33.6) pg MCHC 31.0 L (32.2-35.4) g/dL RDW 16.3 H (11.5-15.5) % Plt Count 297 (125-369) X10(3)uL MPV 9.0 (7.4-10.4) fL Neut % (Auto) 80.9 (46-82) % Lymph % (Auto) 8.4 L (13-37) % [place] % (Auto) 9.8 (4-12) % Eos % (Auto) 1 (1.0-5.0) % Baso % (Auto) 0 (0-2) % Neut # (Auto) 8.1 (1.6-8.3) # Lymph # (Auto) 0.8 (0.6-5.0) # [place] # (Auto) 1.0 (0.0-1.3) # Eos # (Auto) 0.1 (0.0-0.8) # Baso # (Auto) 0.0 (0.0-0.2) # PT 22.1 H (8.7-11.1) INR 2.30 H (0.89-1.13) Sodium 140 (135-145) mmol/L Potassium 4.9 (3.5-5.3) mmol/L Chloride 100 (100-110) mmol/L Carbon Dioxide 31 (21-32) mmol/L BUN 29 H (7-18) mg/dL Creatinine 2.2 H* (0.70-1.30) mg/dL Est Cr Clr Drug Dosing TNP Estimated GFR (MDRD) 29 L (>60) BUN/Creatinine Ratio 13.2 (9-20) Glucose 337 H D (80-116) mg/dL Calcium 8.5 L (8.6-10.2) mg/dL Total Bilirubin 0.6 (0.1-1.3) mg/dL AST 24 D (5-25) IU/L ALT 25 D (12-36) U/L Alkaline Phosphatase 172 H (56-112) IU/L Total Protein 7.5 (6.0-8.0) g/dL Albumin 3.2 (3.2-4.6) g/dL Globulin 4.3 g/dL Albumin/Globulin Ratio 0.7 Urine Color (YELLOW) Urine Appearance (CLEAR) Urine pH (5.0-6.5) Ur Specific [place] (1.010-1.025) Urine Protein (NEGATIVE) mg/dL Urine Glucose (UA) (NORMAL) mg/dL Urine Ketones (NEGATIVE) mg/dL Urine Occult Blood (NEGATIVE) Urine Nitrite (NEGATIVE) Urine Bilirubin (NEGATIVE) Urine Urobilinogen (NEGATIVE) mg/dL Ur Leukocyte Esterase (NEGATIVE) Urine RBC (0-5) Urine WBC (0-5) Ur Squamous Epith Cells (NS,R,O) Amorphous Sediment Urine Bacteria (NS) 06/12/19 Range/Units 13:04 WBC (4.5-12.0) X10-3/uL RBC (4.30-5.75) x10(6)uL Hgb (13.5-17.8) g/dL Hct (30.0-51.3) % MCV (80-96) fL MCH (27.7-33.6) pg MCHC (32.2-35.4) g/dL RDW (11.5-15.5) % Plt Count (125-369) X10(3)uL MPV (7.4-10.4) fL Neut % (Auto) (46-82) % Lymph % (Auto) (13-37) % [place] % (Auto) (4-12) % Eos % (Auto) (1.0-5.0) % Baso % (Auto) (0-2) % Neut # (Auto) (1.6-8.3) # Lymph # (Auto) (0.6-5.0) # [place] # (Auto) (0.0-1.3) # Eos # (Auto) (0.0-0.8) # Baso # (Auto) (0.0-0.2) # PT (8.7-11.1) INR (0.89-1.13) Sodium (135-145) mmol/L Potassium (3.5-5.3) mmol/L Chloride (100-110) mmol/L Carbon Dioxide (21-32) mmol/L BUN (7-18) mg/dL Creatinine (0.70-1.30) mg/dL Est Cr Clr Drug Dosing Estimated GFR (MDRD) (>60) BUN/Creatinine Ratio (9-20) Glucose (80-116) mg/dL Calcium (8.6-10.2) mg/dL Total Bilirubin (0.1-1.3) mg/dL AST (5-25) IU/L ALT (12-36) U/L Alkaline Phosphatase (56-112) IU/L Total Protein (6.0-8.0) g/dL Albumin (3.2-4.6) g/dL Globulin g/dL Albumin/Globulin Ratio Urine Color Yellow (YELLOW) Urine Appearance Turbid (CLEAR) Urine pH 8.0 H (5.0-6.5) Ur Specific [place] 1.010 (1.010-1.025) Urine Protein Negative (NEGATIVE) mg/dL Urine Glucose (UA) >1000 H (NORMAL) mg/dL Urine Ketones Negative (NEGATIVE) mg/dL Urine Occult Blood Negative (NEGATIVE) Urine Nitrite Negative (NEGATIVE) Urine Bilirubin Negative (NEGATIVE) Urine Urobilinogen Normal (NEGATIVE) mg/dL Ur Leukocyte Esterase Negative (NEGATIVE) Urine RBC 0-5 (0-5) Urine WBC 0-5 (0-5) Ur Squamous Epith Cells Few H (NS,R,O) Amorphous Sediment Many Urine Bacteria Moderate H (NS) - Radiology Interpretation Free Text/Narrative:: Chest x-ray with left rib detail shows bilateral small pleural effusions, right middle lobe infiltrate and healing rib fracture on the left. This was per the radiologist. - Re-Assessments/Exams Free Text/Narrative Re-Assessment/Exam: 06/12/19 14:21: The patient remains hemodynamically stable with no respiratory distress. His O2 saturations are greater than 95% on room air. He does appear to have a pneumonia on the right side and a rib fracture on the left side. The rib fracture is likely related to the coughing and is the cause of his pain. His blood tests show an elevated blood sugar with reassuring labs otherwise and with a therapeutic INR. His urine test was normal. The patient appears stable for discharge. I will prescribe him doxycycline 100 mg twice a day for 10 days and tramadol 50 mg to be used for moderate to severe pain. He was advised to have his INR checked on Saturday of this next week. He also needs to follow-up with his doctor week as well. Departure - Departure Time of Disposition: 14:30 Disposition: Home, Self-Care 01 Condition: Good Clinical Impression: Musculoskeletal chest pain Right middle lobe pneumonia Qualifiers: Pneumonia type: due to unspecified organism Qualified Code(s): J18.9 - Pneumonia, unspecified organism Left rib fracture Qualifiers: Encounter type: initial encounter Rib fracture type: multiple ribs Fracture type: closed Qualified Code(s): S22.42XA - Multiple fractures of ribs, left side , initial encounter for closed fracture - Discharge Information Prescriptions: Doxycycline Monohydrate 100 mg PO BID 10 Days #20 tablet traMADol HCl [Tramadol HCl] 50 mg PO Q6H PRN #14 tablet PRN Reason: Moderate to severe pain Instructions: Chest Wall Pain, [id number], Rib Fracture, [id number], Community-Acquired Pneumonia, Adult, [id number] Referrals: Luiz Dunn MD [Primary Care Provider] - Forms: ED Department Discharge Additional Instructions: You appear to have a pneumonia in your right middle lung. You also appear to have to fractured ribs on the left that is in the area where you are having the pain. These are probably related to your cough and are the source of your pain. Your blood sugar was 337. Your INR was 2.3 today. You need to follow-up with your primary doctor this next week about your elevated blood sugar. Increase your fluid intake. You may take Tylenol 1000 mg by mouth every 6 hours as needed for pain. Medication as prescribed (doxycycline 100 mg, tramadol 50 mg). You will need to have your INR rechecked on Saturday of this next week. Back to the emergency department for worse breathing, coughing up blood, high fever, unrelenting vomiting or any other concerning sign or symptom. Sepsis Event Note - Focused Exam Vital Signs: Vital Signs Temp Pulse Resp BP Pulse Ox 06/12/19 12:20 59 L 16 139/64 96 06/12/19 11:18 36.3 C 65 18 163/70 H 95 Date Exam was Performed: 06/12/19 Time Exam was Performed: 14:20
--- NOTE | 2019-06-12 13:52 | CR ---
INDICATION: Cough with left mid-back pain. LEFT RIBS WITH CHEST: PA view of the chest with 5 additional images of the left ribs were obtained 06/12/19 and compared with chest from 02/17/18. The heart is enlarged with bipolar pacemaker leads unchanged in position. The aorta is tortuous with calcification in the arch. There is now blunting of the costophrenic angle bilaterally compatible with small pleural effusions. There is minimal infiltrate versus fibrosis suggested in the right midlung field, perihilar in location. Minimal patchy pneumonia cannot be excluded in that area. Otherwise, no definite contusion, infiltrate or effusion was identified. A definite fracture site was noted on chest x-ray. However, near the anterior tip of the 7th left rib, there is a slightly offset fracture that appears to be healing and is, therefore, subacute. Healed fracture site at the 6th rib anteriorly versus a very minimal fracture that is healing, is also suggested. A definite acute fracture site or other acute bony abnormality, was not identified. IMPRESSION: 1. Bilateral small pleural effusions, etiology indeterminate, minimal pneumonia or pleuritis cannot be excluded at the left mid-lung field. Minimal post traumatic pleural effusion could be present on the left, very small in size. 2. Healing fracture site anterior tip 7th left rib with probable less offset fracture that is healed or healing at the 6th anterior tip rib on the left. 3. ASHD with cardiomegaly and bipolar pacemaker leads. Report was called to Dr. Guerrero at 1310 hours. [facility]
[2019-06-12 17:09] VITALS: BP 155/81; PULSE 63
== END 2019-06-12 15:00 | disposition home or self-care (01) ==
LOC: FB.ED 10:53
DX: R07.89 Other chest pain (principal); J18.9 Pneumonia, unspecified organism; Z87.81 Personal history of (healed) traumatic fracture; I13.0 Hypertensive heart and chronic kidney disease with heart failure and stage 1 through stage 4 chronic kidney disease, or unspecified chronic kidney disease; E11.22 Type 2 diabetes mellitus with diabetic chronic kidney disease; N18.9 Chronic kidney disease, unspecified; I50.9 Heart failure, unspecified; I25.10 Atherosclerotic heart disease of native coronary artery without angina pectoris; I48.0 Paroxysmal atrial fibrillation; K21.9 Gastro-esophageal reflux disease without esophagitis; M19.90 Unspecified osteoarthritis, unspecified site; Z86.73 Personal history of transient ischemic attack (TIA), and cerebral infarction without residual deficits; E66.9 Obesity, unspecified; Z68.34 Body mass index [BMI] 34.0-34.9, adult; Z95.5 Presence of coronary angioplasty implant and graft; Z87.891 Personal history of nicotine dependence; Z88.0 Allergy status to penicillin; Z88.8 Allergy status to other drugs, medicaments and biological substances; Z79.84 Long term (current) use of oral hypoglycemic drugs; Z79.899 Other long term (current) drug therapy
CPT/HCPCS: 36415; 71101-LT; 80053; 81001; 85025; 85610; 99284; 99285-25

== ENCOUNTER 2019-06-13 14:54 | Emergency (ER) | payer MEDICARE ==
--- NOTE | 2019-06-13 16:07 | EDM.PDOC ---
ED HPI GENERAL MEDICAL PROBLEM - General Stated Complaint: FEEL DIZZY Time Seen by Provider: 06/13/19 15:48 Source of Information: Reports: Patient History Limitations: Reports: No Limitations - History of Present Illness INITIAL COMMENTS - FREE TEXT/NARRATIVE: 84-year-old male who was seen by myself yesterday in this emergency department secondary to left posterior lateral chest/back pain and a cough. He was found to have pneumonia and two left posterior lateral rib fractures. He was placed on doxycycline for his pneumonia and he was given a prescription of tramadol for his pain. The patient reported that he had been taking tramadol for his pain with some relief. He reports that he felt well yesterday except for the cough and the left posterior lateral chest/back pain. Today, after awakening, he felt lightheaded and dizzy and "blah". He has felt that way all through the day and he has persisted with this pain in his left posteriolateral chest and back as well as his cough. He is reporting the pain as a 6/10 at present but is variable and depends on his movement or whether he coughs. It is sharp really unchanged from what it was yesterday. He has had no nausea or vomiting. He has been able to take liquids well today. He has been urinating well. He has noted no fever. Today, when he was talking with his about his symptoms, they remembered that in the past when he had taken tramadol he had very similar type symptoms and that is why he stopped taking them and then forgot about that before he started having this pain. It should be noted though that he had been taking the tramadol for his pain without any of the symptoms over the past few days prior to them developing today. He also reports that he had some jerking of his arms before he came in this afternoon and he was concerned that he might of had a discharge of his defibrillator. He also reports that he has had some sweating today as well. He did not have any chest pain or discomfort in his chest or feeling feeling in his chest though. There was no loss of consciousness. He has had his defibrillator discharge in the past and it was not like what he felt today but a much harder type discomfort that was also felt through his chest and his entire body. There are no other associated signs or symptoms. There are no other modifying factors. Onset: Today Duration: Constant Location: Reports: Other (Pain in the same area as yesterday in the left posterior lateral chest last back. However the dizziness and it is his new today ) Quality: Reports: Ache, Sharp Severity: Moderate Improves with: Reports: Medication Worsens with: Reports: Other (Palpation. Cough.), Movement Context: Reports: Other (As above) Associated Symptoms: Reports: No Other Symptoms Treatments [employer]: Reports: Acetaminophen, Other Medication(s) (Tramadol) LEFT RIB Pain Score (Numeric/FACES): 9 - Related Data Allergies Allergy/AdvReac Type Severity Reaction Status Date / Time meclizine Allergy Confusion Verified 06/13/19 16:17 Penicillins Allergy Hives Verified 06/13/19 16:17 Home Meds: Home Meds Potassium Chloride 20 meq PO BID 03/17/14 [History] Amiodarone [Cordarone] 200 mg PO BEDTIME 07/19/15 [History] glipiZIDE [Glucotrol] 10 mg PO BID 01/17/16 [History] Furosemide 80 mg PO BID 01/25/17 [History] Isosorbide Dinitrate 10 mg PO BID 01/25/17 [History] Warfarin [Coumadin] 5 mg PO MOWEFR 09/16/17 [History] Carvedilol [Coreg] 6.25 mg PO DAILY 05/23/19 [History] Ranitidine [Zantac] 75 mg PO BEDTIME 05/23/19 [History] Warfarin [Coumadin] 2.5 mg PO SUTUTHSA 05/23/19 [History] Doxycycline Monohydrate 100 mg PO BID 10 Days #20 tablet 06/12/19 [Rx] traMADol HCl [Tramadol HCl] 50 mg PO Q6H PRN #14 tablet 06/12/19 [Rx] Past Medical History HEENT History: Reports: Allergic Rhinitis Other HEENT History: Wears glasses. Cardiovascular History: Reports: Afib, Arrhythmia, CAD, Cardiomyopathy, Heart Failure, High Cholesterol, Hypertension, [place], Pacemaker, Other (See Below) Other Cardiovascular History: [place] WITH CARDIOVERSION IN JUN 2015, ANTERIOR [place] 2006, [place] X3, NEAR SYNCOPE, PAROXYSMAL ATRIAL FIBRILLATION, VENTRICULAR TACHYCARDIA. Respiratory History: Reports: Sleep Apnea Other Respiratory History: pt uses oxygen at bedtime Gastrointestinal History: Reports: GERD Genitourinary History: Reports: Chronic Renal Insuffiency Musculoskeletal History: Reports: Arthritis, Fracture Other Musculoskeletal History: R elbow fx, rib fx. Neurological History: Reports: CVA, TIA Endocrine/Metabolic History: Reports: Diabetes, Type II, Obesity/BMI 30+ Hematologic History: Reports: Anemia, Blood Transfusion(s) Dermatologic History: Reports: Eczema - Infectious Disease History Infectious Disease History: Reports: Chicken Pox, Measles, Mumps - Past Surgical History HEENT Surgical History: Reports: Eye Surgery Cardiovascular Surgical History: Reports: AICD, Coronary Artery Stent, Pacer GI Surgical History: Reports: Appendectomy, Cholecystectomy, Hernia Repair/Other Social & Family History - Tobacco Use Smoking Status *Q: Former Smoker - Caffeine Use Caffeine Use: Reports: Soda - Living Situation & Occupation Living situation: Reports: , with Spouse Occupation: Retired ED ROS GENERAL - Review of Systems Review Of Systems: See Below Constitutional: Reports: Malaise, Fatigue, Diaphoresis HEENT: Reports: No Symptoms Respiratory: Reports: Cough Cardiovascular: Reports: Lightheadedness, Other (As history of present illness) GI/Abdominal: Reports: No Symptoms : Reports: No Symptoms Musculoskeletal: Reports: No Symptoms Skin: Reports: No Symptoms Neurological: Reports: Dizziness Psychiatric: Reports: No Symptoms Hematologic/Lymphatic: Reports: Easy Bleeding Immunologic: Reports: Other (Did not get an influenza vaccine this year.) ED EXAM, GENERAL - Physical Exam Exam: See Below Exam Limited By: No Limitations General Appearance: Alert, Mild Distress, Obese Eye Exam: Bilateral Eye: Abnormal EOM, EOMI Ears: Normal External Exam, Hearing Loss Ear Exam: Bilateral Ear: Auricle Normal Nose: Normal Inspection, Normal Mucosa, No Blood Throat/Mouth: Normal Voice, No Airway Compromise Head: Atraumatic, Normocephalic Neck: Normal Inspection, Supple, Non-Tender Respiratory/Chest: No Respiratory Distress, Normal Breath Sounds, No Accessory Muscle Use Cardiovascular: Normal Peripheral Pulses, Regular Rate, Rhythm, No Murmur Peripheral Pulses: 2+: Radial (L), Radial (R) GI/Abdominal: Normal Bowel Sounds, Soft, Non-Tender, No Mass Back Exam: Other (Tender over left posterior lateral mid back/chest no crepitus. No deformity noted.) Extremities: Normal Inspection, Normal Range of Motion, Non-Tender, No Pedal Edema, Normal Capillary Refill Neurological: Alert, Oriented, CN II-XII Intact, Normal Cognition, No Motor/ Sensory Deficits Skin Exam: Warm, Dry, Intact, Normal Color, No Rash EKG INTERPRETATION EKG Date: 06/13/19 Time: 16:29 Rhythm: Other (7-year-old patient rhythm) Rate (Beats/Min): 61 [place]: LAD-Left [place] Deviation P-Wave: Present QRS: LBBB ST-T: Other (Nonspecific ST-T changes) QT: Prolonged Comparison: No Change (No change from EKG performed on 02/17/2018.) Course - Vital Signs Last Recorded V/S: Last Vital Signs Temp 36.3 C 06/13/19 14:55 Pulse 59 L 06/13/19 14:55 Resp 17 06/13/19 14:55 BP 145/61 H 06/13/19 14:55 Pulse Ox 94 L 06/13/19 14:55 - Orders/Labs/Meds Orders: Active Orders 24 hr Category Date Time Status EKG Documentation Completion [RC] ASDIRECTED Care 06/13/19 16:08 Active EKG 12 Lead [EK] Routine Ther 06/13/19 16:07 Ordered Labs: Laboratory Tests 06/13/19 06/13/19 06/13/19 Range/Units 16:19 16:19 16:19 WBC 12.2 H (4.5-12.0) X10-3/uL RBC 5.22 (4.30-5.75) x10(6)uL Hgb 12.5 L (13.5-17.8) g/dL Hct 39.8 (30.0-51.3) % MCV 76.2 L (80-96) fL MCH 23.9 L (27.7-33.6) pg MCHC 31.3 L (32.2-35.4) g/dL RDW 16.4 H (11.5-15.5) % Plt Count 303 (125-369) X10(3)uL MPV 8.9 (7.4-10.4) fL Neut % (Auto) 79.8 (46-82) % Lymph % (Auto) 6.5 L (13-37) % Jones % (Auto) 12.8 H (4-12) % Eos % (Auto) 1 (1.0-5.0) % Baso % (Auto) 0 (0-2) % Neut # (Auto) 9.7 H (1.6-8.3) # Lymph # (Auto) 0.8 (0.6-5.0) # Jones # (Auto) 1.6 H (0.0-1.3) # Eos # (Auto) 0.1 (0.0-0.8) # Baso # (Auto) 0.0 (0.0-0.2) # Sodium 139 (135-145) mmol/L Potassium 4.4 (3.5-5.3) mmol/L Chloride 100 (100-110) mmol/L Carbon Dioxide 31 (21-32) mmol/L BUN 31 H (7-18) mg/dL Creatinine 2.2 H* (0.70-1.30) mg/dL Est Cr Clr Drug Dosing 20.56 mL/min Estimated GFR (MDRD) 29 L (>60) BUN/Creatinine Ratio 14.1 (9-20) Glucose 269 H (80-116) mg/dL Calcium 8.5 L (8.6-10.2) mg/dL Magnesium 2.2 (1.8-2.5) mg/dL Troponin I < 0.017 L (<0.017-0.056) ng/mL - Re-Assessments/Exams Free Text/Narrative Re-Assessment/Exam: 06/13/19 17:17: Patient's blood tests are essentially unchanged from yesterday. He still has an elevated blood sugar. His EKG showed no change from EKG performed on 02/17/2018. I do not think that he had a discharge of his defibrillator. I do suspect that he is just not tolerating the tramadol. I am going to have him stop the tramadol. He may take Tylenol 1000 mg by mouth every 6 hours as needed for pain. He did take the doxycycline twice daily for 10 days. He is to have his INR rechecked on Saturday and I will remind him of this. He is scheduled to follow-up 06/19/2019 in regard to his elevated blood sugars. Departure - Departure Time of Disposition: 17:35 Disposition: Home, Self-Care 01 Condition: Good Clinical Impression: Lightheadedness, Diabetes mellitus type 2 in obese Adverse effects of medication Qualifiers: Encounter type: initial encounter Qualified Code(s): T50.905A - Adverse effect of unspecified drugs, medicaments and biological substances, initial encounter - Discharge Information Instructions: Dizziness, [id number] Referrals: Luiz Dunn MD [Primary Care Provider] - Additional Instructions: Your blood tests were unchanged from yesterday. Your EKG was unchanged from January 2018. She do not appear to have anything going on your heart at this point. I suspect that your dizziness and lightheadedness and not feeling well is related to the tramadol. Stop the tramadol. You may take Tylenol 1000 mg by mouth every 6 hours as needed for pain. You should moderately increase your fluid intake. Continue the doxycycline for your pneumonia. Have your INR rechecked on Saturday. You may do this either at your to his office or you can do it through the walk-in clinic here at [facility]. Back to the emergency department for worse breathing, unrelenting vomiting, passing out or any other concerning sign or symptom. Sepsis Event Note - Focused Exam Vital Signs: Vital Signs Temp Pulse Resp BP Pulse Ox 06/13/19 14:55 36.3 C 59 L 17 145/61 H 94 L Date Exam was Performed: 06/13/19 Time Exam was Performed: 17:17 - My Orders Last 24 Hours: My Active Orders 06/13/19 16:07 EKG 12 Lead [EK] Routine 06/13/19 16:08 EKG Documentation Completion [RC] ASDIRECTED - Assessment/Plan Last 24 Hours: My Active Orders 06/13/19 16:07 EKG 12 Lead [EK] Routine 06/13/19 16:08 EKG Documentation Completion [RC] ASDIRECTED
[2019-06-13 17:59] VITALS: BP 152/69; PULSE 64
== END 2019-06-13 18:00 | disposition home or self-care (01) ==
LOC: FB.ED 14:54
DX: R42 Dizziness and giddiness (principal); T40.4X5A Adverse effect of other synthetic narcotics, initial encounter; I13.0 Hypertensive heart and chronic kidney disease with heart failure and stage 1 through stage 4 chronic kidney disease, or unspecified chronic kidney disease; E11.22 Type 2 diabetes mellitus with diabetic chronic kidney disease; N18.9 Chronic kidney disease, unspecified; I50.9 Heart failure, unspecified; E66.9 Obesity, unspecified; Z68.37 Body mass index [BMI] 37.0-37.9, adult; I25.10 Atherosclerotic heart disease of native coronary artery without angina pectoris; I48.0 Paroxysmal atrial fibrillation; I25.2 Old myocardial infarction; E78.00 Pure hypercholesterolemia, unspecified; K21.9 Gastro-esophageal reflux disease without esophagitis; M19.90 Unspecified osteoarthritis, unspecified site; Z86.73 Personal history of transient ischemic attack (TIA), and cerebral infarction without residual deficits; Z95.5 Presence of coronary angioplasty implant and graft; Z87.891 Personal history of nicotine dependence; Z88.0 Allergy status to penicillin; Z88.8 Allergy status to other drugs, medicaments and biological substances; Z79.84 Long term (current) use of oral hypoglycemic drugs; Z79.899 Other long term (current) drug therapy
CPT/HCPCS: 36415; 80048; 83735; 84484; 85025; 87804; 87804-59; 93005; 93010; 99283; 99285-25

== ENCOUNTER 2019-07-21 20:50 | Emergency (ER) | payer MEDICARE ==
--- NOTE | 2019-07-21 20:57 | EDM.PDOC ---
ED HPI GENERAL MEDICAL PROBLEM - General Stated Complaint: HEART PAIN NOT FEELING WELL Time Seen by Provider: 07/21/19 20:55 Source of Information: Reports: Patient History Limitations: Reports: No Limitations - History of Present Illness INITIAL COMMENTS - FREE TEXT/NARRATIVE: 84-year-old male with ongoing problems with pain in multiple areas of his body and cough who reports that he developed pain in the center of his chest 3 days ago that was a squeezing type pain and seemed to also be in his mid back. It did not really seem to have anything that made it better or worse. He is now an 8/10. He had called the ambulance earlier today and had them check him out and a pressure, pulse and oxygen seemed to be okay and he refused transport at that time. Tonight, the pain seemed to be worse and according to the and daughter he had a "weak spell" and he became very pale and somewhat sweaty and had a near syncopal episode which prompted him to call EMS. The patient now presents via ambulance and is awake, alert and appropriate. He is on oxygen and his O2 saturations are 97-100%. According to EMS he was 97% on room air at his home as well. He was seen in May 2019 by myself secondary to pneumonia and rib fractures that were felt to be due to cough and he has had 2 courses of antibiotics since that initial visit with persisting infiltrate and pneumonia. He has also had persisting pain and his back, particularly on the left side, in the area where his rib fractures were. These pains are sharp pains and seemed to be worsening as well. He reports he has been not eating that well today but he has been drinking liquids today. No vomiting. No diarrhea. There are no other associated signs or symptoms. There are no other modifying factors. Onset: Other (Ongoing problems since May 2019. 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: Reports: Other (see below) (Nothing) chest, back Pain Score (Numeric/FACES): 9 - Related Data Allergies Allergy/AdvReac Type Severity Reaction Status Date / Time Penicillins Allergy Hives Verified 06/13/19 16:17 meclizine AdvReac Intermediate Confusion Verified 06/15/19 13:21 tramadol AdvReac Mild Dizziness Verified 06/15/19 13:21 Home Meds: Home Meds Potassium Chloride 20 meq PO BID 03/17/14 [History] Amiodarone [Cordarone] 200 mg PO BEDTIME 07/19/15 [History] glipiZIDE [Glucotrol] 10 mg PO BID 01/17/16 [History] Furosemide 80 mg PO BID 01/25/17 [History] Isosorbide Dinitrate 10 mg PO BID 01/25/17 [History] Warfarin [Coumadin] 5 mg PO MOWEFR 09/16/17 [History] Carvedilol [Coreg] 6.25 mg PO DAILY 05/23/19 [History] Ranitidine [Zantac] 75 mg PO BEDTIME 05/23/19 [History] Warfarin [Coumadin] 2.5 mg PO SUTUTHSA 05/23/19 [History] Doxycycline Monohydrate 100 mg PO BID 10 Days #20 tablet 06/12/19 [Rx] traMADol HCl [Tramadol HCl] 50 mg PO Q6H PRN #14 tablet 06/12/19 [Rx] Past Medical History HEENT History: Reports: Allergic Rhinitis, Impaired Vision (Wears glasses) Cardiovascular History: Reports: Afib, Arrhythmia, CAD, Cardiomyopathy, Heart Failure, High Cholesterol, Hypertension, OH, Pacemaker, Other (See Below) Other Cardiovascular History: VT WITH CARDIOVERSION IN JUN 2015, ANTERIOR OH 2006, OH X3, NEAR SYNCOPE, PAROXYSMAL ATRIAL FIBRILLATION, VENTRICULAR TACHYCARDIA. Respiratory History: Reports: Sleep Apnea Other Respiratory History: pt uses oxygen at bedtime Gastrointestinal History: Reports: GERD Genitourinary History: Reports: Chronic Renal Insuffiency Musculoskeletal History: Reports: Arthritis, Fracture Other Musculoskeletal History: R elbow fx, rib fx. Neurological History: Reports: CVA, TIA Endocrine/Metabolic History: Reports: Diabetes, Type II, Obesity/BMI 30+ Hematologic History: Reports: Anemia, Blood Transfusion(s) Dermatologic History: Reports: Eczema - Infectious Disease History Infectious Disease History: Reports: Chicken Pox, Measles, Mumps - Past Surgical History HEENT Surgical History: Reports: Eye Surgery Cardiovascular Surgical History: Reports: AICD, Coronary Artery Stent, Pacer, Percutaneous Transluminal Angioplasty GI Surgical History: Reports: Appendectomy, Cholecystectomy, Hernia Repair/Other Social & Family History - Tobacco Use Smoking Status *Q: Former Smoker (Quit smoking in 2005) - Caffeine Use Caffeine Use: Reports: Soda - Alcohol Use Alcohol Use History: No - Living Situation & Occupation Living situation: Reports: , with Spouse Occupation: Retired ED ROS GENERAL - Review of Systems Review Of Systems: See Below Constitutional: Reports: Malaise, Weakness HEENT: Reports: No Symptoms Respiratory: Reports: Shortness of Breath, Cough. Denies: Sputum, Hemoptysis Cardiovascular: Reports: Chest Pain, Dyspnea on Exertion, Lightheadedness Endocrine: Reports: Fatigue GI/Abdominal: Reports: No Symptoms : Reports: No Symptoms Musculoskeletal: Reports: Back Pain Skin: Reports: Diaphoresis (Earlier with this) Neurological: Reports: Other (Near syncope) Hematologic/Lymphatic: Reports: Easy Bleeding, Easy Bruising, Other ( Chronically anticoagulated with Coumadin) Immunologic: Reports: No Symptoms ED EXAM, GENERAL - Physical Exam Exam: See Below Exam Limited By: No Limitations General Appearance: Alert, Mild Distress, Obese Eye Exam: Bilateral Eye: EOMI, Normal Inspection Ears: Normal External Exam, Hearing Grossly Normal Ear Exam: Bilateral Ear: Auricle Normal Nose: Normal Inspection, Normal Mucosa, No Blood Throat/Mouth: Normal Oropharynx, Normal Voice, No Airway Compromise Head: Atraumatic, Normocephalic Neck: Normal Inspection, Supple, Non-Tender, Full Range of Motion Respiratory/Chest: No Respiratory Distress, No Accessory Muscle Use, Crackles ( Scattered crackles with more the right side), Rhonchi (Bilaterally). No: Pleural Rub Cardiovascular: Normal Peripheral Pulses, Regular Rate, Rhythm Peripheral Pulses: 2+: Radial (L), Radial (R) GI/Abdominal: Normal Bowel Sounds, Soft, Non-Tender, No Organomegaly, No Mass Extremities: Normal Inspection, Non-Tender, No Pedal Edema, Normal Capillary Refill Neurological: Alert, Oriented, CN II-XII Intact, Normal Cognition, No Motor/ Sensory Deficits Skin Exam: Warm, Dry, Intact, Normal Color, No Rash EKG INTERPRETATION EKG Date: 07/21/19 Time: 20:52 Rhythm: Other (Atrial paced rhythm) Rate (Beats/Min): 63 QRS: LBBB Comparison: No Change (No change from EKG performed on 06/13/2019. No other rotation can be made secondary to paced rhythm) Course - Vital Signs Last Recorded V/S: Last Vital Signs Temp 36.4 C 07/21/19 20:50 Pulse 60 07/21/19 23:00 Resp 14 07/21/19 23:00 BP 147/59 H 07/21/19 23:00 Pulse Ox 95 07/21/19 23:00 - Orders/Labs/Meds Orders: Active Orders 24 hr Category Date Time Status EKG Documentation Completion [RC] ASDIRECTED Care 07/21/19 21:30 Active Chest 1V Frontal [CR] Stat Exams 07/21/19 21:29 Taken Chest wo Cont [CT] Stat Exams 07/22/19 00:14 Taken UA W/MICROSCOPIC [URIN] Stat Lab 07/21/19 21:31 Received Sodium Chloride 0.9% [Saline Flush] Med 07/21/19 21:32 Active 10 ml FLUSH ASDIRECTED PRN Peripheral IV Insertion Adult [OM.PC] Routine Oth 07/21/19 21:32 Ordered EKG 12 Lead [EK] Routine Ther 07/21/19 21:29 Ordered Medication Orders Sodium Chloride (Saline Flush) 10 ml FLUSH ASDIRECTED PRN PRN Reason: Keep Vein Open Labs: Laboratory Tests 07/21/19 07/21/19 07/21/19 Range/Units 21:39 21:39 21:39 WBC 14.0 H (4.5-12.0) X10-3/uL RBC 4.61 (4.30-5.75) x10(6)uL Hgb 11.1 L (13.5-17.8) g/dL Hct 34.9 (30.0-51.3) % MCV 75.8 L (80-96) fL MCH 24.0 L (27.7-33.6) pg MCHC 31.7 L (32.2-35.4) g/dL RDW 16.6 H (11.5-15.5) % Plt Count 337 (125-369) X10(3)uL MPV 8.0 (7.4-10.4) fL Neut % (Auto) 76.9 (46-82) % Lymph % (Auto) 7.0 L (13-37) % [place] % (Auto) 14.9 H (4-12) % Eos % (Auto) 1 (1.0-5.0) % Baso % (Auto) 1 (0-2) % Neut # (Auto) 10.7 H (1.6-8.3) # Lymph # (Auto) 1.0 (0.6-5.0) # [place] # (Auto) 2.1 H (0.0-1.3) # Eos # (Auto) 0.1 (0.0-0.8) # Baso # (Auto) 0.1 (0.0-0.2) # PT 25.8 H (8.7-11.1) INR 2.69 H (0.89-1.13) Sodium 142 (135-145) mmol/L Potassium 3.5 (3.5-5.3) mmol/L Chloride 98 L (100-110) mmol/L Carbon Dioxide 39 H (21-32) mmol/L BUN 35 H (7-18) mg/dL Creatinine 2.2 H* (0.70-1.30) mg/dL Est Cr Clr Drug Dosing 20.56 mL/min Estimated GFR (MDRD) 29 L (>60) BUN/Creatinine Ratio 15.9 (9-20) Glucose 220 H (80-116) mg/dL Calcium 8.8 (8.6-10.2) mg/dL Magnesium (1.8-2.5) mg/dL Total Bilirubin 0.4 (0.1-1.3) mg/dL AST 60 H D (5-25) IU/L ALT 19 D (12-36) U/L Alkaline Phosphatase 322 H (56-112) IU/L Troponin I (4.0-60.3) pg/mL C-Reactive Protein (0.5-0.9) mg/dL Total Protein 7.4 (6.0-8.0) g/dL Albumin 2.8 L (3.2-4.6) g/dL Globulin 4.6 g/dL Albumin/Globulin Ratio 0.6 07/21/19 07/21/19 Range/Units 21:39 21:39 WBC (4.5-12.0) X10-3/uL RBC (4.30-5.75) x10(6)uL Hgb (13.5-17.8) g/dL Hct (30.0-51.3) % MCV (80-96) fL MCH (27.7-33.6) pg MCHC (32.2-35.4) g/dL RDW (11.5-15.5) % Plt Count (125-369) X10(3)uL MPV (7.4-10.4) fL Neut % (Auto) (46-82) % Lymph % (Auto) (13-37) % [place] % (Auto) (4-12) % Eos % (Auto) (1.0-5.0) % Baso % (Auto) (0-2) % Neut # (Auto) (1.6-8.3) # Lymph # (Auto) (0.6-5.0) # [place] # (Auto) (0.0-1.3) # Eos # (Auto) (0.0-0.8) # Baso # (Auto) (0.0-0.2) # PT (8.7-11.1) INR (0.89-1.13) Sodium (135-145) mmol/L Potassium (3.5-5.3) mmol/L Chloride (100-110) mmol/L Carbon Dioxide (21-32) mmol/L BUN (7-18) mg/dL Creatinine (0.70-1.30) mg/dL Est Cr Clr Drug Dosing mL/min Estimated GFR (MDRD) (>60) BUN/Creatinine Ratio (9-20) Glucose (80-116) mg/dL Calcium (8.6-10.2) mg/dL Magnesium 2.4 (1.8-2.5) mg/dL Total Bilirubin (0.1-1.3) mg/dL AST (5-25) IU/L ALT (12-36) U/L Alkaline Phosphatase (56-112) IU/L Troponin I 34.4 (4.0-60.3) pg/mL C-Reactive Protein 4.9 H* (0.5-0.9) mg/dL Total Protein (6.0-8.0) g/dL Albumin (3.2-4.6) g/dL Globulin g/dL Albumin/Globulin Ratio Meds: Medications Generic Name Dose Route Start Last Admin Trade Name Freq PRN Reason Stop Dose Admin Sodium Chloride 10 ml 07/21/19 21:32 Saline Flush FLUSH ASDIRECTED PRN Keep Vein Open - Radiology Interpretation Free Text/Narrative:: Chest x-ray shows right-sided density which seems to be more prominent than previous x-ray. CT scan of chest without contrast shows multiple nodules in both lungs that is concerning for metastatic disease. Infection is thought to be less likely. He has bilateral pleural calcifications. This was per the radiologist. - Re-Assessments/Exams Free Text/Narrative Re-Assessment/Exam: 07/22/19 02:00: The patient did have an elevated white blood cell count and an elevated CRP. His other laboratory tests were essentially unchanged from previous. His chest x-ray was concerning for worsening to the on the right and so a CT scan of his chest was performed and it showed multiple bilateral pulmonary nodules with a concern that these were metastatic. He has been on several courses of antibiotics for suspected pneumonia and recently diagnosed with rib fractures. There does not appear to be any pneumonia causing his symptoms and his opponent was negative. This troponin would represent a greater than six-hour level as he has had chest pain continually through the day for the past 3 days. His EKG is also unchanged from May 2019. I think this effectively rules out OH or cardiac as a cause for his chest pain. His O2 saturations are also good. The patient appears stable for discharge at this point. The patient is currently scheduled to see Dr. Dunn on 07/31/2019. I will discuss his case with Dr. Dunn later today and tried to get the patient into clinic earlier to expedite patient work up in regard to the patient's continuing symptoms and possible metastatic lesions in his lungs. 07/22/19 02:15: When we attempted to get the patient up he became quite pale and near syncopal. Unfortunately, his blood pressure was not taken time. His O2 saturations were 88-89% on room air. By the time I was there to evaluate the patient he was feeling somewhat improved but still felt somewhat weak. His blood pressure at that time was normal his pulse rate was in the 70 range. At this point, he will not be able to be discharged. He will need admission for cardiac monitoring and repeat troponin with further investigation into his possible metastatic disease. There are no beds available at [facility] [place] and the patient would want to discuss his case with the doctors at [facility] in [place]. 07/22/19 02:35: I discussed patient's case with Dr. Brian, hospitalist at [facility] in [place], and he has agreed to accept the patient in transfer. We will place the patient on several oxygen. We'll keep him on the radiation monitor. I did discuss with the patient about his CODE STATUS and he reports that he is a DNR/DNI. The patient will be transferred via ambulance to [facility] in [place] for direct admission. Departure - Departure Time of Disposition: 02:15 Disposition: DC/Tfer to Acute Hospital 02 Condition: Fair (Stable) Clinical Impression: Pulmonary nodules/lesions, multiple, Near syncope Chest pain Qualifiers: Chest pain type: unspecified Qualified Code(s): R07.9 - Chest pain, unspecified - Discharge Information Referrals: Luiz Dunn MD [Primary Care Provider] - Sepsis Event Note - Focused Exam Vital Signs: Vital Signs Temp Pulse Resp BP Pulse Ox 07/21/19 23:00 60 14 147/59 H 95 07/21/19 22:46 59 L 14 145/60 H 96 07/21/19 22:39 61 16 147/64 H 97 07/21/19 21:12 59 L 16 148/66 H 100 07/21/19 20:50 36.4 C 77 14 151/67 H 91 L Date Exam was Performed: 07/22/19 Time Exam was Performed: 03:50 - My Orders Last 24 Hours: My Active Orders 07/21/19 21:29 Chest 1V Frontal [CR] Stat EKG 12 Lead [EK] Routine 07/21/19 21:30 EKG Documentation Completion [RC] ASDIRECTED 07/21/19 21:31 UA W/MICROSCOPIC [URIN] Stat 07/21/19 21:32 Sodium Chloride 0.9% [Saline Flush] 10 ml FLUSH ASDIRECTED PRN Peripheral IV Insertion Adult [OM.PC] Routine 07/22/19 00:14 Chest wo Cont [CT] Stat - Assessment/Plan Last 24 Hours: My Active Orders 07/21/19 21:29 Chest 1V Frontal [CR] Stat EKG 12 Lead [EK] Routine 07/21/19 21:30 EKG Documentation Completion [RC] ASDIRECTED 07/21/19 21:31 UA W/MICROSCOPIC [URIN] Stat 07/21/19 21:32 Sodium Chloride 0.9% [Saline Flush] 10 ml FLUSH ASDIRECTED PRN Peripheral IV Insertion Adult [OM.PC] Routine 07/22/19 00:14 Chest wo Cont [CT] Stat
[2019-07-21] MEDS ORDERED: Sodium Chloride 0.9% 10 ML Syringe FLUSH PRN (21:32)
[2019-07-21 23:54] VITALS: BP 147/59; PULSE 60
--- NOTE | 2019-07-22 11:24 | CR ---
INDICATION: Chest pain. CHEST, ONE VIEW: An AP upright portable view of the chest 07/21/19 was compared with and 06/12/19. Blunting of the left costophrenic angle on the previous study has resolved with slightly heavy markings at the left lung base, possibly fibrotic in nature. On the right there is patchy density in the midlung field and throughout the lung base which may be also on the basis of fibrosis, although superimposed areas of patchy pneumonia and pleuritis cannot be excluded as the markings appear to be increased significantly compared with the previous study. The heart is again noted to be enlarged with tortuous calcified aorta and stable position of bipolar pacemaker leads. Evidence of exogenous obesity is again noted. IMPRESSION: 1. ASHD with cardiomegaly, no definite CHF. 2. Minimal patchy infiltration - may represent pneumonia and/or fibrosis in the right mid to lower lung field. Patchy pneumonia superimposed on fibrosis certainly is possible. Blunting of the costophrenic angle and lateral pleural thickening may represent fibrosis of the pleural space and/or pleural effusion - pleuritis. MTDD
== END 2019-07-22 03:12 ==
LOC: FB.ED 20:50
DX: R91.8 Other nonspecific abnormal finding of lung field (principal); R55 Syncope and collapse; I48.91 Unspecified atrial fibrillation; E11.22 Type 2 diabetes mellitus with diabetic chronic kidney disease; I13.0 Hypertensive heart and chronic kidney disease with heart failure and stage 1 through stage 4 chronic kidney disease, or unspecified chronic kidney disease; N18.9 Chronic kidney disease, unspecified; I50.9 Heart failure, unspecified; K21.9 Gastro-esophageal reflux disease without esophagitis; I25.10 Atherosclerotic heart disease of native coronary artery without angina pectoris; E66.9 Obesity, unspecified; Z88.8 Allergy status to other drugs, medicaments and biological substances; Z88.5 Allergy status to narcotic agent; Z79.01 Long term (current) use of anticoagulants; Z86.73 Personal history of transient ischemic attack (TIA), and cerebral infarction without residual deficits; Z79.899 Other long term (current) drug therapy; Z68.36 Body mass index [BMI] 36.0-36.9, adult; Z79.84 Long term (current) use of oral hypoglycemic drugs; Z87.891 Personal history of nicotine dependence
CPT/HCPCS: 36415; 71045; 71250; 80053; 83735; 84484; 85025; 85610; 86140; 93005; 93010; 99285; 99285-25

== ENCOUNTER 2019-07-31 11:02 | Inpatient (IN) | payer MEDICARE ==
[~2019-07-31 11:02] MED LIST: Midazolam 1 MG/ML 2 ML SDV IV ONE; Propofol 200 MG/20 ML SDV IV ONE
[2019-07-31] MEDS ORDERED: Nitroglycerin 0.4 MG Tab.SL SL PRN (13:56)
[2019-07-31] MEDS ORDERED: Warfarin Sliding Scale PO SCH (14:00)
[2019-07-31] MEDS ORDERED: Aluminum Hydroxide/Magnesium Hydroxide Susp 30 ML Cup PO PRN (14:20)
[2019-07-31] MEDS ORDERED: Insulin Lispro 100 Unit/ML 3 ML KwikPen SUBCUT SCH (18:00)
[2019-07-31] MEDS: Isosorbide Dinitrate 10 MG Tab PO SCH (18:01)
[2019-07-31] MEDS: Amiodarone 200 MG Tab PO SCH (21:16)
[2019-07-31] MEDS: Carvedilol 6.25 MG Tab PO SCH (21:18)
[2019-07-31] MEDS: Ferrous Sulfate 325 MG Tab PO SCH (21:18)
[2019-07-31] MEDS: Famotidine 20 MG Tab PO SCH (21:19)
[2019-07-31] MEDS: Tamsulosin 0.4 MG Cap.ER PO SCH (21:20)
[2019-08-01] MEDS: Furosemide 80 MG Tab PO SCH (08:36)
[2019-08-01] MEDS: Isosorbide Dinitrate 10 MG Tab PO SCH ×2 (08:36→15:45)
[2019-08-01] MEDS: Potassium Chloride 20 MEQ Tab.ER PO SCH (08:37)
[2019-08-01] MEDS: Acetaminophen 500 MG Tab PO PRN (12:56)
[2019-08-01] MEDS: Warfarin 2.5 MG Tab PO SCH (15:45)
[2019-08-01] MEDS: Famotidine 20 MG Tab PO SCH (20:31)
[2019-08-01] MEDS: Amiodarone 200 MG Tab PO SCH (20:31)
[2019-08-01] MEDS: Ferrous Sulfate 325 MG Tab PO SCH (20:32)
[2019-08-01] MEDS: Tamsulosin 0.4 MG Cap.ER PO SCH (20:32)
[2019-08-01] MEDS: Carvedilol 6.25 MG Tab PO SCH (20:33)
[2019-08-02] MEDS: Isosorbide Dinitrate 10 MG Tab PO SCH ×2 (08:50→16:05)
[2019-08-02] MEDS: Levofloxacin 750 MG Tab PO SCH (08:50)
[2019-08-02] MEDS: Potassium Chloride 20 MEQ Tab.ER PO SCH (08:51)
[2019-08-02] MEDS: Furosemide 80 MG Tab PO SCH (08:51)
[2019-08-02] MEDS: Acetaminophen 500 MG Tab PO PRN ×3 (08:55→21:17)
--- NOTE | 2019-08-02 14:17 | PN ---
DATE SEEN: 08/01/2019 SUBJECTIVE: Abraham Collins is an 84-year-old male admitted with swing bed for CHF, complicated shortness of breath, supplemental O2, and comorbid pneumonia. Had settled in nicely. No particular complaints or concerns. LABORATORY STUDIES: Glucose is noted. OBJECTIVE: VITAL SIGNS: 112/56, respirations 20, O2 saturation 96% on 2 L. GENERAL: Dyspneic with exertion and conversation. NECK: No JVD. CHEST: Decreased breath sounds. Coarse rhonchi. HEART: Distant heart sounds. Occasional ectopy. ABDOMEN: Benign. ASSESSMENT: Congestive heart failure with comorbid pneumonia. PLAN: Medications, care and treatment appropriate. Diuretics in place. Medications on board, pneumonia. Levofloxacin per protocol given renal function. /[id number] LEBRON/LEONARDO
[2019-08-02] MEDS: Warfarin 2.5 MG Tab PO SCH (16:51)
--- NOTE | 2019-08-02 20:41 | PCM.SN ---
- Free Text/Narrative Note: 08/02/2019, 8:30 PM: I was called by nursing staff to see patient secondary to recurrent nosebleed. Apparently, the patient had a nosebleed yesterday from his left nostril and a Rhino Rocket was placed by Dr. Pulido into his left nostril. The patient did have some bleeding from his right nostril earlier today but it stopped spontaneously and beginning at about 8 to 8:15 PM, he began to have some blood dripping from his right nostril. The patient denies any weakness or dizziness. No change in his breathing. Denies any pain in his nose. I arrived to see the patient, his nose no longer is bleeding. Objective: Blood pressure was 115/55 and in keeping with what it has been previously. Pulse rate was 70. O2 saturation was 94% on room air Alert, appropriately oriented elderly male who appears in some discomfort and when asked he states that he just feels bad all over and this is really change from previous. HEENT: There is a Rhino Rocket in the patient's left naris. There is some dried blood around the right nares but no active bleeding. There is no posterior pharyngeal bleeding. Chest: Lungs are clear bilaterally. Heart rate is regular Extremities: Well-perfused. Warm hands. Radial pulses are present and symmetric bilaterally. Neuro: Patient moves all 4 extremities symmetrically. There are no focal deficits. Assessment: Epistaxis, resolved at present. Plan: I will continue with the Rhino Rocket in the left nostril for now. And will continue to observe the patient. I will place orders for the nursing staff to apply nasal spray to the right nostril if bleeding begins again. 08/02/2019, 9:10 PM: The patient again began having some red blood dripping from the right nostril. He remains awake and alert and has no new complaints. Objective: Reexam of the patient's nose reveals a small amount of bright red blood at the nares but no brisk bleeding. It does appear to be oozing. There is some posterior pharyngeal blood but only minimal amount. Assessment: Recurrent epistaxis Plan/procedure note: At this time, I removed the Rhino Rocket from the left nostril. I then sprayed Afrin nasal spray into both nostrils. The patient coughed and cleared some clots that are to drain from his is into his posterior pharynx. I then applied a nasal clamp and following this there was no bleeding from the nostrils and there was no posterior pharyngeal bleeding as well. I will plan on leaving the nasal clamp in place for 30 minutes. I will then have the nursing staff remove the nasal clamp and if there is further bleeding they are to call me or the doctor carton catcher. If no further bleeding, they are to leave the nasal clamp off and then I will have them apply normal saline nasal spray to both nostrils every 3 hours while awake. At bedtime I will have them apply Vaseline to both nostrils. If he has further bleeding, the nursing staff will be instructed to spray 2-3 sprays of Afrin into both nostrils and reapply the nasal clamp and set the patient up at 60. If there is no further bleeding at that time, they are to leave the nasal clamp in place for 30 minutes and remove after that. If there is further bleeding, they are to call the doctor on- call at that point.
[2019-08-02] MEDS: Amiodarone 200 MG Tab PO SCH (20:45)
[2019-08-02] MEDS: Ferrous Sulfate 325 MG Tab PO SCH (20:45)
[2019-08-02] MEDS: Tamsulosin 0.4 MG Cap.ER PO SCH (20:45)
[2019-08-02] MEDS: Carvedilol 6.25 MG Tab PO SCH (20:46)
[2019-08-02] MEDS: Famotidine 20 MG Tab PO SCH (20:46)
[2019-08-02] MEDS ORDERED: Oxymetazoline 0.05% Nasal Spray 15 ML Bottle NAS PRN (21:25)
[2019-08-02] MEDS: Sodium Chloride 0.65% Nasal Spray 45 ML Bottle NAS SCH (21:45)
--- NOTE | 2019-08-02 22:50 | PCM.SN ---
- Free Text/Narrative Note: 08/02/2019, 10:40 PM: Called by nursing staff to see patient secondary to right upper arm pain status post injury. Patient reports "my arm is broken". Objective: Awake and alert male who is in some pain. HEENT: His nose is clear at this point. There is no further bleeding. There is no posterior pharyngeal bleeding. Extremities: Good perfusion in the right hand with minimal radial pulse. There is tenderness to palpation over the mid shaft of the right humerus. There is also some swelling and deformity in the mid right humerus. Assessment: Right upper arm injury and pain, rule out fracture Plan: X-ray of right humerus has been ordered. 08/02/2019, 11:15 PM: Patient's x-ray is reviewed and he does have a spiral midshaft right humerus fracture. The patient will be placed in a sling and swath and will he maintained at 60. I will prescribe hydrocodone 5/325 one tablet every 4 hours prn pain. I have also placed a routine consult to Dr. Santiago. He will not be called until in the morning. We'll also discuss with Dr. Ibarra in the morning. I discussed the results of the x-ray and the proposed treatment plan with the patient. Assessment: Right midshaft spiral humerus fracture Plan: As above. Patient is in sling and swath and appears to be more comfortable.
[2019-08-02] MEDS: Acetaminophen/HYDROcodone 325-5 MG Tab PO PRN (23:38)
[2019-08-03] MEDS: Sodium Chloride 0.65% Nasal Spray 45 ML Bottle NAS SCH ×6 (01:30→21:16)
[2019-08-03] MEDS: Acetaminophen/HYDROcodone 325-5 MG Tab PO PRN (05:31)
--- NOTE | 2019-08-03 09:15 | PN ---
DATE SEEN: 08/02/2019 SUBJECTIVE: Abraham Collins is an 84-year-old male admitted. Discontinued the insulin. Had been on glipizide or Glucotrol prior to admission. We will restart 10 mg twice a day. Sugars were noted. OBJECTIVE: VITAL SIGNS: 36.7, 98, 133/68, 28 is the respirations, 2 L 98%. GENERAL: Dyspneic with conversation, but appropriate. NECK: Benign. No JVD. CHEST: Decreased breath sounds. Coarse rhonchi. HEART: Occasional ectopy. Soft murmur. ABDOMEN: Benign. ASSESSMENT: Congestive heart failure, pneumonia. PLAN: Medications, care and treatment appropriate, continue conservative therapy. /[id number] LEBRON/LEONARDO
--- NOTE | 2019-08-03 09:15 | HP ---
ADMISSION DATE: 07/31/2019 REASON FOR ADMISSION: Complicated shortness of breath, CHF, and comorbid pneumonia. HISTORY OF PRESENT ILLNESS: Abraham Collins is an 84-year-old male admitted to swing bed from [facility]. He had been transferred to [place] on 07/22/2019. He presented to [place] with chest pain, shortness of breath, complicated sputum, worsening oxygen demand, complicated pneumonia, elevated BMP. Was treated appropriately. Medications were adjusted. Diuresed about 4 L, down 40 pounds. Chest pain improved. GERD was in place. Deconditioning a major issue due to hypercarbia, hyperemia. Pulmonary was consulted. Pulmonary defects, PFTs. Nodule was seen on CT, thought to be aspiration related. Followup 6- to 8-week CT and Pulmonary scheduled. Creatinine stabilized. Blood gases improved. Acidemia improved. Was transferred for appropriate rehab care and intervention. MEDICATIONS: Discharge medications include: 1. Two to eight units of NovoLog premeal. 2. Levofloxacin 750 mg one p.o. q.48 hours, 5-dose duration. 3. Scopolamine patch p.r.n. for nausea. 4. Maalox 30 mL b.i.d. p.r.n. indigestion. 5. Amiodarone 200 mg one p.o. daily V-tach. 6. Ferrous sulfate 325 one p.o. daily low iron. 7. Furosemide 40 mg two tablets each morning CHF. 8. Isosorbide 5 mg two tablets b.i.d. heart failure. 9. KCl 10 mEq two p.o. daily hypokalemia. 10.Zantac 150 one at bedtime GERD. 11.Tamsulosin 0.4 mg one p.o. daily BPH. 12.Warfarin per protocol. 13.Carvedilol 6.25 mg one daily for heart. 14.P.r.n. nitroglycerin. 15.Supplemental O2. 16.Tylenol. Stopped were: 1. Erythromycin. 2. Doxycycline. 3. Glipizide. 4. Metaxalone. PAST MEDICAL HISTORY: Significant for coronary artery disease with previous stent; CHF, ejection of 30%; cardiomyopathy; complicated vertigo, recurrent dizziness; type 2 diabetes mellitus; and visual impairment. SOCIAL HISTORY: Lives with his , retired. , 4 children. Former smoker, quit 2005. Chewing tobacco up until 2017. No alcohol no illicit drug use. FAMILY HISTORY: Negative for early heart disease, diabetes mellitus, or inheritable cancers. REVIEW OF SYSTEMS: Primary issue of respiratory difficulty, complicated cough, and generalized weakness. PHYSICAL EXAMINATION: VITAL SIGNS: 118/40, pulse of 65, respirations 18 to 20, O2 saturation 96% on 2 L. GENERAL: Appears comfortable. Dyspneic with conversation. HEENT: Funduscopic benign. Conjunctivae clear. Bright tympanic membranes. Decreased hearing. Clear nasal discharge. Mouth and oropharynx clear. Poor dentition. Tongue midline. NECK: Benign. CHEST: Decreased breath sounds throughout all lung waggoner. HEART: Distant heart sounds. Occasional ectopy. ABDOMEN: Benign. Moderate obesity. No hepatosplenomegaly. GENITOURINARY: Normal male genitalia. Hernias absent. EXTREMITIES: Well perfused. Venous stasis changes. ASSESSMENT: Complicated congestive heart failure with comorbid pneumonia. PLAN: Medications, care and treatment appropriate. Adjustment of dose, continue antibiotic therapy. Complementary care and well being. /[id number] /LEONARDO
[2019-08-03] MEDS: Furosemide 80 MG Tab PO SCH (09:24)
[2019-08-03] MEDS: Isosorbide Dinitrate 10 MG Tab PO SCH ×2 (09:24→15:37)
[2019-08-03] MEDS: Potassium Chloride 20 MEQ Tab.ER PO SCH (09:24)
[2019-08-03] MEDS: Acetaminophen/Codeine 300-30 MG Tab PO PRN ×2 (09:34→15:36)
--- NOTE | 2019-08-03 10:39 | CR ---
INDICATION: Pain with deformity in right humerus status post injury. RIGHT HUMERUS: Two views of the right humerus were obtained and revealed a spiral fracture near the midshaft extending into the distal shaft area with lateral and posterior angulation at the fracture site. There appears to be a centimeter of overriding of fracture fragments. Degenerative changes are suggested at the AC joint, not well delineated at the glenohumeral joint. Degenerative changes are also noted at the elbow joint, particularly severe at the medial elbow joint compartment. IMPRESSION: 1. Spiral midshaft fracture of the humerus with significant deformity. 2. Osteoarthritis shoulder and elbow. MTDD
--- NOTE | 2019-08-03 15:51 | PN ---
DATE SEEN: 08/03/2019 SUBJECTIVE: Abraham Collins is an 84-year-old male, admitted to swing bed for CHF, complicated shortness of breath, supplemental O2. Pneumonia was present. Settled in nicely. Last evening without complicating issue. No fall or injury, sustained a fracture of his mid humerus of right arm. ER physician saw, x-rays revealed a complicated distal third fractured humerus, brace in place. He has had repetitive episodes of nosebleeds, Rhino Rocket has been established and removed today. OBJECTIVE: VITAL SIGNS: 93% without oxygen, 115/55, 70, respirations 16. GENERAL: Appears to be reasonably comfortable. Sling in place. HEENT: Nares with old crusting, bleeding, but nothing problematic. Mouth and oropharynx clear. CHEST: On auscultation, clear in all lung waggoner. Decreased breath sounds both lung bases. HEART: Occasional ectopy. Soft murmur. ASSESSMENT: 1. New right humeral fracture, origin uncertain, no fall related. 2. Epistaxis, resolved. 3. Cardiovascular, respiratory status stable. PLAN: Medications, care and treatment appropriate, consultation with Dr. Santiago. /[id number] /LEONARDO
[2019-08-03] MEDS ORDERED: Warfarin 2.5 MG, Warfarin 5 MG PO ONE ×2 (16:00)
[2019-08-03] MEDS ORDERED: Lactated Ringers 1,000 ML IV SCH (16:30)
--- NOTE | 2019-08-03 16:53 | PCM.CONS ---
H&P History of Present Illness - General Date of Service: 08/03/19 Admit Problem/Dx: Admission Diagnosis/Problem Admission Diagnosis/Problem Pneumonia Source of Information: Patient, Family, RN History Limitations: Reports: No Limitations - History of Present Illness Onset of Symptoms: Reports: Today, Sudden Symptom Onset Date: 08/02/19 Duration of Symptoms: Reports: Hour(s): Location: Reports: Upper Extremity, Right Quality: Reports: Stabbing, Throbbing Severity: Moderate Improves with: Reports: Immobilization Worsens with: Reports: Movement Associated Symptoms: Reports: No Other Symptoms pain Pain Score (Numeric/FACES): 0 SHAZIA. LOWER BACK Pain Score (Numeric/FACES): 5 DENIES ANY PAIN WHEN ASKED AT PRESENT TIME Pain Score (Numeric/FACES): 0 R) arm Pain Score (Numeric/FACES): 7 - Related Data Allergies/Adverse Reactions: Allergies Allergy/AdvReac Type Severity Reaction Status Date / Time Penicillins Allergy Hives Verified 07/31/19 14:48 meclizine AdvReac Intermediate Confusion Verified 07/31/19 14:48 tramadol AdvReac Mild Dizziness Verified 07/31/19 14:48 Home Medications: Home Meds Potassium Chloride 20 meq PO DAILY 03/17/14 [History] Amiodarone [Cordarone] 200 mg PO BEDTIME 07/19/15 [History] Furosemide 80 mg PO DAILY 01/25/17 [History] Isosorbide Dinitrate 10 mg PO BID@09,16 01/25/17 [History] Carvedilol [Coreg] 6.25 mg PO BEDTIME 05/23/19 [History] Acetaminophen [Tylenol Extra Strength] 500 - 1,000 mg PO Q4H PRN 07/31/19 [ History] Alum Hydrox/Mag Hydrox/Simeth [Maalox Advanced] 30 ml PO BID PRN 07/31/19 [ History] Ferrous Sulfate 325 mg PO BEDTIME 07/31/19 [History] Insulin Aspart [NovoLOG] 2 - 8 units SUBCUT TIDMEALS 07/31/19 [History] Levofloxacin [Levaquin] 750 mg PO Q48H 07/31/19 [History] Nitroglycerin 0.4 mg SL Q5M PRN 07/31/19 [History] Scopolamine [Transderm-Scop] 1.5 mg TD Q3D 07/31/19 [History] Tamsulosin [Tamsulosin 24 Hr] 0.4 mg PO BEDTIME 07/31/19 [History] Warfarin Sliding Scale [Coumadin Sliding Scale] 1 ea PO ASDIRECTED 07/31/19 [ History] raNITIdine HCl [Zantac] 150 mg PO BEDTIME 07/31/19 [History] Past Medical History HEENT History: Reports: Allergic Rhinitis, Impaired Vision Other HEENT History: Wears glasses. Cardiovascular History: Reports: Afib, Arrhythmia, CAD, Cardiomyopathy, Heart Failure, High Cholesterol, Hypertension, [place], Pacemaker, Other (See Below) Other Cardiovascular History: VT WITH CARDIOVERSION IN JUN 2015, ANTERIOR OH 2006, [place] X3, NEAR SYNCOPE, PAROXYSMAL ATRIAL FIBRILLATION, VENTRICULAR TACHYCARDIA. Respiratory History: Reports: Sleep Apnea, SOB Other Respiratory History: pt uses oxygen at bedtime Gastrointestinal History: Reports: GERD Genitourinary History: Reports: Chronic Renal Insuffiency Musculoskeletal History: Reports: Arthritis, Fracture Other Musculoskeletal History: R elbow fx, rib fx. Neurological History: Reports: CVA, TIA Endocrine/Metabolic History: Reports: Diabetes, Type II, Obesity/BMI 30+ Hematologic History: Reports: Anemia, Blood Transfusion(s) Oncologic (Cancer) History: Reports: None Dermatologic History: Reports: Eczema - Infectious Disease History Infectious Disease History: Reports: Chicken Pox, Measles - Past Surgical History HEENT Surgical History: Reports: Eye Surgery Cardiovascular Surgical History: Reports: AICD, Coronary Artery Stent, Pacer, Percutaneous Transluminal Angioplasty GI Surgical History: Reports: Appendectomy, Cholecystectomy, Hernia Repair/Other Social & Family History - Family History Family Medical History: Noncontributory - Tobacco Use Smoking Status *Q: Former Smoker Used Tobacco, but Quit: Yes Month/Year Tobacco Last Used: 0 - Caffeine Use Caffeine Use: Reports: Coffee - Recreational Drug Use Recreational Drug Use: No - Living Situation & Occupation Living situation: Reports: , with Spouse Occupation: Retired H&P Review of Systems - Review of Systems: Review Of Systems: See Below General: Reports: Weakness HEENT: Reports: No Symptoms Pulmonary: Reports: Shortness of Breath Cardiovascular: Reports: No Symptoms Gastrointestinal: Reports: No Symptoms Genitourinary: Reports: No Symptoms Musculoskeletal: Reports: Arm Pain Skin: Reports: No Symptoms Psychiatric: Reports: No Symptoms Neurological: Reports: No Symptoms Hematologic/Lymphatic: Reports: No Symptoms Immunologic: Reports: No Symptoms Exam - Exam Exam: See Below - Vital Signs Vital Signs: Last Vital Signs Temp 97.8 F 08/03/19 15:39 Pulse 74 08/03/19 15:39 Resp 20 08/03/19 15:39 BP 122/65 08/03/19 15:39 Pulse Ox 93 L 08/03/19 15:39 Weight: 193 lb 2 oz - Exam General: Alert, Oriented, Moderate Distress HEENT: PERRLA, Conjunctiva Clear, EOMI, Hearing Intact, Pupils Equal, Pupils Reactive Neck: Supple, Trachea Midline Lungs: Normal Respiratory Effort GI/Abdominal Exam: No Distention Extremities: Arm Pain, Limited Range of Motion Peripheral Pulses: 2+: Radial (R) Skin: Warm, Dry, Intact Neuro Extensive - Mental Status: Alert, Oriented x3, Normal Mood/Affect, Normal Cognition, Memory Intact Psychiatric: Alert, Normal Affect, Normal Mood Physical Exam Comments:: RUE: distal motor and sensory exam grossly intact - Patient Data Lab Results Last 24 hrs: Laboratory Results - last 24 hr 08/02/19 08/02/19 08/03/19 Range/Units 18:04 21:28 05:22 POC Glucose 263 H 302 H 298 H (80-116) mg/dL 08/03/19 Range/Units 16:33 POC Glucose 225 H (80-116) mg/dL Sepsis Event Note - Evaluation Sepsis Screening Result: No Definite Risk - Focused Exam Vital Signs: Vital Signs Temp Pulse Resp BP BP Pulse Ox 08/03/19 15:39 97.8 F 74 20 122/65 93 L 08/03/19 15:37 122/65 08/03/19 09:24 128/58 L Date Exam was Performed: 08/03/19 Time Exam was Performed: 16:48 Consult PN Assessment/Plan POD#: 0 Procedures: Procedures ANESTH LOW INTESTINE SCOPE (01/18/16) ASSAY OF CK (CPK) (07/09/15) ASSAY OF MAGNESIUM (07/21/19) ASSAY OF NATRIURETIC PEPTIDE (02/17/18) ASSAY OF PHOSPHORUS (08/06/15) ASSAY OF TROPONIN QUANT (07/21/19) ASSAY THYROID STIM HORMONE (08/15/15) BLOOD GASES ANY COMBINATION (09/07/17) BLOOD TRANSFUSION SERVICE (01/27/17) BLOOD TYPING SEROLOGIC ABO (07/28/17) BLOOD TYPING SEROLOGIC RH(D) (07/28/17) C-REACTIVE PROTEIN (07/21/19) CHEST X-RAY 1 VIEW FRONTAL (08/06/15) CHEST X-RAY 2VW FRONTAL&LATL (08/06/16) COMPLETE CBC AUTOMATED (08/26/15) COMPLETE CBC W/AUTO DIFF WBC (07/21/19) COMPREHEN METABOLIC PANEL (07/21/19) CREATINE MB FRACTION (07/09/15) CT HEAD/BRAIN W/O DYE (07/27/15) CT THORAX W/O DYE (07/21/19) DIAGNOSTIC COLONOSCOPY (01/18/16) EGD BIOPSY SINGLE/MULTIPLE (01/18/16) ELECTROCARDIOGRAM REPORT (06/13/19) ELECTROCARDIOGRAM TRACING (07/21/19) EMERGENCY DEPT VISIT (07/21/19) EMERGENCY DEPT VISIT (06/13/19) EMERGENCY DEPT VISIT (06/13/19) EMERGENCY DEPT VISIT (06/12/19) EMERGENCY DEPT VISIT (06/12/19) EMERGENCY DEPT VISIT (05/23/19) EMERGENCY DEPT VISIT (05/23/19) EMERGENCY DEPT VISIT (02/17/18) EMERGENCY DEPT VISIT (09/16/17) EMERGENCY DEPT VISIT (09/07/17) EMERGENCY DEPT VISIT (07/28/17) EMERGENCY DEPT VISIT (01/27/17) EMERGENCY DEPT VISIT (08/26/15) EMERGENCY DEPT VISIT (08/06/15) EMERGENCY DEPT VISIT (07/27/15) EMERGENCY DEPT VISIT (07/27/15) EMERGENCY DEPT VISIT (07/19/15) EMERGENCY DEPT VISIT (07/09/15) EMERGENCY DEPT VISIT (02/23/15) EMERGENCY DEPT VISIT (03/17/14) FIBRIN DEGRADATION QUANT (08/15/15) GLUCOSE BLOOD TEST (01/27/17) GLYCOSYLATED HEMOGLOBIN TEST (07/27/15) HEMATOCRIT (01/27/17) HEMOGLOBIN (01/27/17) HYDRATE IV INFUSION ADD-ON (01/27/17) IMMUNOHISTO ANTB 1ST STAIN (01/18/16) INFLUENZA ASSAY W/OPTIC (06/13/19) INITIAL OBSERVATION CARE (01/27/17) METABOLIC PANEL TOTAL CA (06/13/19) OBSERVATION CARE DISCHARGE (08/15/15) OCCULT BLD FECES 1-3 TESTS (01/27/17) OFFICE/OUTPATIENT VISIT EST (10/26/18) PROTHROMBIN TIME (07/21/19) RBC ANTIBODY SCREEN (07/28/17) ROUTINE VENIPUNCTURE (07/21/19) SUBSEQUENT OBSERVATION CARE (01/27/17) THER/PROPH/DIAG INJ IV PUSH (01/27/17) THROMBOPLASTIN TIME PARTIAL (08/06/15) TISSUE EXAM BY PATHOLOGIST (01/18/16) TTE W/DOPPLER COMPLETE (08/15/15) URINALYSIS AUTO W/SCOPE (06/12/19) X-RAY EXAM CHEST 1 VIEW (07/21/19) X-RAY EXAM UNILAT RIBS/CHEST (06/12/19) Problem List Initiated/Reviewed/Updated: Yes My Orders Last 24 Hours: My Active Orders 08/03/19 Lunch NPO Now [Nothing per Oral Now Diet] [DIET] Plan: A: 84 yo male with suspected pathologic fracture due to low energy mechanism with midshaft comminuted/spiral displaced humeral fracture P: will take to OR for closed reduction and splinting. advised patient of risk or radial nerve palsy will keep in splint three weeks then f/u in clinic at three weeks will have PT apply clamshell brace with hydraulic compression will follow three weeks later in clinic
--- NOTE | 2019-08-03 17:13 | PCM.OPNOTE ---
- General Post-Op/Procedure Note Date of Surgery/Procedure: 08/03/19 Operative Procedure(s): closed reduction and long arm splint right humerus Pre Op Diagnosis: right oblique/spiral closed humeral shaft fracture Post-Op Diagnosis: Same Anesthesia Technique: MAC Primary Surgeon: Frank Santiago Anesthesia Provider: Kristel Barbosa Juvenile Justice Officer: Leyla Mcmahon EBL in mLs: 0 Condition: Good
--- NOTE | 2019-08-03 18:35 | OR ---
DATE OF OPERATION: 08/03/2019 SURGEON: Frank Santiago DO PREOPERATIVE DIAGNOSIS: Right humeral shaft fracture, oblique, closed. POSTOPERATIVE DIAGNOSIS: Right humeral shaft fracture, oblique, closed. PROCEDURE: 1. Closed reduction of humeral shaft fracture with manipulation. 2. Long-arm splint. PAPER BAG MAKING MACHINIST: Leyla Mcmahon NP. Nurse practitioner, Leyla Mcmahon NP, played an essential role in assisting in this case, helping to position the patient, retract structures as needed, as well as suturing and cutting sutures as indicated. Her presence improved patient's safety and decreased operative time. FLUID: Lactated Ringer solution. ESTIMATED BLOOD LOSS: 0. COMPLICATIONS: None. SPECIMEN: None. DISCHARGE DISPOSITION: Stable to PACU. HISTORY AND INDICATION FOR THE PROCEDURE: The patient was seen on the floor. He did not have a fall, but moved in his bed and had a humeral shaft fracture, very suspicious of the pathologic fracture. He was seen in the emergency department where the above-mentioned fracture was seen on radiographs and diagnosed. He was in swing bed already for other complications. Risks and benefits of the procedure were explained to the patient and his family and informed consent was obtained. DETAILS OF PROCEDURE: The patient was seen on the hospital floor where the operative site was marked. He was brought to the operative suite by the anesthesia staff. A time-out was called identifying the correct patient, the correct procedure, and the correct site. Small amount of propofol was used for pain control. He had no pain during the procedure. I applied three 3 x 12 Orthoglass fiberglass packs around his arm after applying some Webril. I used some Webril to keep this in place. I then did a loose wrap of Roger and then did a very tight wrap of Roger for hydraulic compression similar to a clamshell technique. I then adjusted this under fluoroscopy and let it harden. We then placed him back into his sling. The patient was allowed to awaken from conscious sedation and taken to the PACU in stable condition. /[id number] BS/DORINAL
[2019-08-03] MEDS: Carvedilol 6.25 MG Tab PO SCH (21:14)
[2019-08-03] MEDS: Amiodarone 200 MG Tab PO SCH (21:14)
[2019-08-03] MEDS: Ferrous Sulfate 325 MG Tab PO SCH (21:14)
[2019-08-03] MEDS: Tamsulosin 0.4 MG Cap.ER PO SCH (21:15)
[2019-08-03] MEDS: Famotidine 20 MG Tab PO SCH (21:15)
[2019-08-03] MEDS: Petrolatum,White Jelly 30 GM Tube TOP SCH (21:15)
[2019-08-04] MEDS: Sodium Chloride 0.65% Nasal Spray 45 ML Bottle NAS SCH ×6 (02:15→21:51)
[2019-08-04] MEDS: Acetaminophen 500 MG Tab PO PRN ×3 (02:24→23:20)
[2019-08-04] MEDS: Potassium Chloride 20 MEQ Tab.ER PO SCH (08:16)
[2019-08-04] MEDS: Furosemide 80 MG Tab PO SCH (08:21)
[2019-08-04] MEDS: Isosorbide Dinitrate 10 MG Tab PO SCH ×2 (08:23→16:52)
[2019-08-04] MEDS: Levofloxacin 750 MG Tab PO SCH (08:24)
[2019-08-04] MEDS: Acetaminophen/Codeine 300-30 MG Tab PO PRN (08:46)
--- NOTE | 2019-08-04 11:07 | CR ---
INDICATION: Guidance for closed reduction. C-ARM LESS THAN ONE HOUR IN OR: 0.3 minutes C-arm fluoroscopy time was utilized in OR for guidance during closed reduction. Three images were obtained with the C-arm fluoroscopic unit and revealed a spiral appearing fracture with offset at the fracture site, no definite overriding or significant angulation. MTDD
--- NOTE | 2019-08-04 13:59 | PN ---
DATE SEEN: 08/04/2019 SUBJECTIVE: Abraham Collins is a young man in swing bed. Congestive heart failure, ejection fraction 20%, and pneumonia. O2 on a regular basis. Had a suspect injury to his right humerus, fracture. No fall. Problematic. This was set in place and casted by Dr. Frank Santiago, in orthopedics. States his pain is moderate today. Intervention and therapy will be modified. Medications reviewed and appropriate. LABORATORY DATA: No new laboratory studies. PHYSICAL EXAMINATION: VITAL SIGNS: 36.9, 67, 21, 94% on 2 L. GENERAL: Appears comfortable. NECK: Benign. CHEST: Decreased breath sounds but clear throughout. HEART: Occasional ectopy. Soft murmur. EXTREMITIES: Splint in place. ASSESSMENT: 1. Right humerus fracture. 2. Resolving pneumonia, underlying congestive heart failure. PLAN: Medications, care, and treatment appropriate. Supportive measures in place. /[id number] /LEONARDO
[2019-08-04] MEDS ORDERED: Warfarin 5 MG Tab PO ONE (16:00)
[2019-08-04] MEDS: Ferrous Sulfate 325 MG Tab PO SCH (20:04)
[2019-08-04] MEDS: Amiodarone 200 MG Tab PO SCH (20:04)
[2019-08-04] MEDS: Carvedilol 6.25 MG Tab PO SCH (20:04)
[2019-08-04] MEDS: Tamsulosin 0.4 MG Cap.ER PO SCH (20:04)
[2019-08-04] MEDS: Famotidine 20 MG Tab PO SCH (20:05)
[2019-08-04] MEDS: Petrolatum,White Jelly 30 GM Tube TOP SCH (20:13)
[2019-08-05] MEDS: Sodium Chloride 0.65% Nasal Spray 45 ML Bottle NAS SCH ×6 (06:46→20:49)
[2019-08-05] MEDS: Isosorbide Dinitrate 10 MG Tab PO SCH ×2 (08:42→16:41)
[2019-08-05] MEDS: Potassium Chloride 20 MEQ Tab.ER PO SCH (08:42)
[2019-08-05] MEDS: Furosemide 80 MG Tab PO SCH (08:42)
[2019-08-05] MEDS: Acetaminophen/Codeine 300-30 MG Tab PO PRN ×2 (08:43→20:49)
--- NOTE | 2019-08-05 12:53 | CR ---
INDICATION: Followup pneumonia. CHEST, 2 VIEWS: PA and lateral views of the chest, 08/05/19, were compared with 07/21/19 and 06/12/19. There remains infiltration in the right lower lung field and, to a lesser extent , right midlung field. There is some pleural thickening on the left, which is new, and pleural thickening on the right as well. The pleural thickening on the right has increased. Blunting of the posterior sulcus on the left is noted. There are some patchy increased markings at the lower lung field on the left compatible with patchy pneumonia there also. The heart is enlarged. Bipolar pacemaker leads are unchanged in posterior. The aorta is tortuous with calcification in the arch. Decreased bone density is noted compatible with osteoporosis. Compression fracture is noted at what appears L1. Degenerative hypertrophic changes of the vertebral bodies anteriorly are noted in the [id number] thoracic spine. Slightly flattened diaphragm leads, with some hyperaeration, raise the question of COPD additionally. IMPRESSION: 1. While infiltrate appears to be somewhat decreased in the right mid-lung field, there is persistent infiltrate in both lower lung waggoner and pleural thickening bilaterally, especially on the left, compatible with pneumonia and pleuritis. 2. ASHD with cardiomegaly and bipolar pacemaker leads. 3. COPD. 4. Osteoporosis with a compression of indeterminate age at what appears to be L1. MTDD
--- NOTE | 2019-08-05 13:27 | PN ---
DATE SEEN: 08/05/2019 SUBJECTIVE: Silvio Collins was seen today for review. Fracture right humerus problematic. Admitted post hospitalization for CHF and pneumonia. Chest x-ray will be performed today. MEDICATIONS: Reviewed and appropriate. PHYSICAL EXAMINATION: VITAL SIGNS: Stable. 104/58, 64, 93% on 1 L. GENERAL: Appears comfortable. Arm pain moderate. NECK: Benign. Thyroid small. CHEST: Decreased breath sounds throughout all lung waggoner. HEART: Moderate ectopy. Soft murmur. ABDOMEN: Benign. ASSESSMENT: Pneumonia, under review; right arm fracture. PLAN: Cast in place, chest x-ray will be performed. Discharge planning, likely half-way. /[id number] LEBRON/LEONARDO
[2019-08-05] MEDS: Warfarin 2.5 MG Tab PO SCH (16:41)
[2019-08-05] MEDS: Carvedilol 6.25 MG Tab PO SCH (20:47)
[2019-08-05] MEDS: Tamsulosin 0.4 MG Cap.ER PO SCH (20:48)
[2019-08-05] MEDS: Ferrous Sulfate 325 MG Tab PO SCH (20:48)
[2019-08-05] MEDS: Famotidine 20 MG Tab PO SCH (20:48)
[2019-08-05] MEDS: Amiodarone 200 MG Tab PO SCH (20:48)
[2019-08-05] MEDS: Petrolatum,White Jelly 30 GM Tube TOP SCH (20:49)
[2019-08-06] MEDS: Sodium Chloride 0.65% Nasal Spray 45 ML Bottle NAS SCH ×6 (02:00→21:25)
[2019-08-06] MEDS ORDERED: Bisacodyl 5 MG Tab PO PRN (02:40)
[2019-08-06] MEDS ORDERED: Magnesium Hydroxide 400 MG/5 ML Susp 30 ML Cup PO PRN (02:48)
[2019-08-06] MEDS: Acetaminophen/Codeine 300-30 MG Tab PO PRN ×3 (07:34→21:14)
[2019-08-06] MEDS: Isosorbide Dinitrate 10 MG Tab PO SCH ×2 (08:33→16:50)
[2019-08-06] MEDS: Furosemide 80 MG Tab PO SCH (08:33)
[2019-08-06] MEDS: Potassium Chloride 20 MEQ Tab.ER PO SCH (08:33)
--- NOTE | 2019-08-06 09:46 | PN ---
DATE SEEN: 08/06/2019 SUBJECTIVE: Abraham Collins is an 84-year-old, male, admitted for rehab. Had a complicated pneumonia and congestive heart failure. Completing his course of levofloxacin. Oxygen use is required. Had an unplanned, unannounced, and unexpected right humeral fracture. Nosebleeds that have been present have resolved. LABORATORY STUDIES: Glucose is 290. PHYSICAL EXAMINATION: VITAL SIGNS: 36.8, 60, 128/63, 22 is the respirations, 94% on 2 L. GENERAL: Appears comfortable. A bit disheveled. HEENT: Mouth and oropharynx clear. NECK: Benign. Thyroid small. CHEST: Decreased breath sounds at both bases. HEART: Distant heart sounds. Soft murmur. ABDOMEN: Benign. ASSESSMENT: 1. Congestive heart failure, stable. 2. Right humerus fracture. 3. Pneumonia, resolving. PLAN: We will repeat a chest x-ray, see where we are with pneumonia, Complementary care and well being. ADDENDUM: Chest x-ray on 08/05/2019 revealed decreased right mid lung field pneumonia but persistent infiltrate. ASHD, cardiomegaly, pacemaker leads, chronic obstructive pulmonary disease, and osteoporosis. /[id number] LEBRON/LEONARDO
[2019-08-06] MEDS: Warfarin 2.5 MG Tab PO SCH (16:48)
[2019-08-06] MEDS: Ferrous Sulfate 325 MG Tab PO SCH (21:24)
[2019-08-06] MEDS: Amiodarone 200 MG Tab PO SCH (21:24)
[2019-08-06] MEDS: Carvedilol 6.25 MG Tab PO SCH (21:24)
[2019-08-06] MEDS: Tamsulosin 0.4 MG Cap.ER PO SCH (21:24)
[2019-08-06] MEDS: Famotidine 20 MG Tab PO SCH (21:25)
[2019-08-06] MEDS: Petrolatum,White Jelly 30 GM Tube TOP SCH (21:28)
[2019-08-07] MEDS: Sodium Chloride 0.65% Nasal Spray 45 ML Bottle NAS SCH ×6 (01:44→21:26)
[2019-08-07] MEDS: Acetaminophen/Codeine 300-30 MG Tab PO PRN ×5 (01:45→21:35)
[2019-08-07] MEDS: Isosorbide Dinitrate 10 MG Tab PO SCH ×2 (08:34→16:10)
[2019-08-07] MEDS: Furosemide 80 MG Tab PO SCH (08:34)
[2019-08-07] MEDS: Potassium Chloride 20 MEQ Tab.ER PO SCH (08:34)
[2019-08-07] MEDS ORDERED: Warfarin 5 MG Tab PO SCH (16:00)
[2019-08-07] MEDS: Amiodarone 200 MG Tab PO SCH (21:22)
[2019-08-07] MEDS: Carvedilol 6.25 MG Tab PO SCH (21:22)
[2019-08-07] MEDS: Ferrous Sulfate 325 MG Tab PO SCH (21:25)
[2019-08-07] MEDS: Famotidine 20 MG Tab PO SCH (21:25)
[2019-08-07] MEDS: Tamsulosin 0.4 MG Cap.ER PO SCH (21:25)
[2019-08-07] MEDS: Petrolatum,White Jelly 30 GM Tube TOP SCH (21:27)
[2019-08-08] MEDS: Sodium Chloride 0.65% Nasal Spray 45 ML Bottle NAS SCH ×6 (02:09→21:29)
[2019-08-08] MEDS: Acetaminophen/Codeine 300-30 MG Tab PO PRN ×4 (05:34→22:20)
[2019-08-08] MEDS: Isosorbide Dinitrate 10 MG Tab PO SCH ×2 (08:19→16:48)
[2019-08-08] MEDS: Furosemide 80 MG Tab PO SCH (08:20)
[2019-08-08] MEDS: Potassium Chloride 20 MEQ Tab.ER PO SCH (08:20)
[2019-08-08] MEDS: Warfarin 2.5 MG Tab PO SCH (16:48)
[2019-08-08] MEDS: Carvedilol 6.25 MG Tab PO SCH (21:29)
[2019-08-08] MEDS: Petrolatum,White Jelly 30 GM Tube TOP SCH (21:29)
[2019-08-08] MEDS: Amiodarone 200 MG Tab PO SCH (21:29)
[2019-08-08] MEDS: Famotidine 20 MG Tab PO SCH (21:30)
[2019-08-08] MEDS: Ferrous Sulfate 325 MG Tab PO SCH (21:30)
[2019-08-08] MEDS: Tamsulosin 0.4 MG Cap.ER PO SCH (21:30)
[2019-08-09] MEDS: Sodium Chloride 0.65% Nasal Spray 45 ML Bottle NAS SCH ×6 (03:40→21:31)
[2019-08-09] MEDS: Acetaminophen/Codeine 300-30 MG Tab PO PRN ×3 (09:02→18:52)
[2019-08-09] MEDS: Potassium Chloride 20 MEQ Tab.ER PO SCH (09:02)
[2019-08-09] MEDS: Furosemide 80 MG Tab PO SCH (09:02)
[2019-08-09] MEDS: Isosorbide Dinitrate 10 MG Tab PO SCH ×2 (09:02→17:27)
[2019-08-09] MEDS: Warfarin 2.5 MG Tab PO SCH (17:27)
[2019-08-09] MEDS: Carvedilol 6.25 MG Tab PO SCH (21:30)
[2019-08-09] MEDS: Ferrous Sulfate 325 MG Tab PO SCH (21:30)
[2019-08-09] MEDS: Amiodarone 200 MG Tab PO SCH (21:30)
[2019-08-09] MEDS: Famotidine 20 MG Tab PO SCH (21:31)
[2019-08-09] MEDS: Petrolatum,White Jelly 30 GM Tube TOP SCH (21:31)
[2019-08-09] MEDS: Tamsulosin 0.4 MG Cap.ER PO SCH (21:31)
[2019-08-10] MEDS: Sodium Chloride 0.65% Nasal Spray 45 ML Bottle NAS SCH ×3 (02:19→11:06)
[2019-08-10] MEDS: Acetaminophen/Codeine 300-30 MG Tab PO PRN ×3 (03:29→22:15)
[2019-08-10] MEDS: Isosorbide Dinitrate 10 MG Tab PO SCH ×2 (08:01→16:39)
[2019-08-10] MEDS: Furosemide 80 MG Tab PO SCH (08:01)
[2019-08-10] MEDS: Potassium Chloride 20 MEQ Tab.ER PO SCH (08:02)
[2019-08-10] MEDS: Sodium Chloride 0.65% Nasal Spray 45 ML Bottle NAS PRN ×2 (09:56→22:14)
[2019-08-10] MEDS: Warfarin 2.5 MG Tab PO SCH (16:38)
[2019-08-10] MEDS: Carvedilol 6.25 MG Tab PO SCH (22:08)
[2019-08-10] MEDS: Amiodarone 200 MG Tab PO SCH (22:09)
[2019-08-10] MEDS: Ferrous Sulfate 325 MG Tab PO SCH (22:09)
[2019-08-10] MEDS: Famotidine 20 MG Tab PO SCH (22:10)
[2019-08-10] MEDS: Tamsulosin 0.4 MG Cap.ER PO SCH (22:10)
[2019-08-10] MEDS: Petrolatum,White Jelly 30 GM Tube TOP SCH (22:13)
[2019-08-11] MEDS: Isosorbide Dinitrate 10 MG Tab PO SCH ×2 (08:11→16:16)
[2019-08-11] MEDS: Potassium Chloride 20 MEQ Tab.ER PO SCH (08:11)
[2019-08-11] MEDS: Furosemide 80 MG Tab PO SCH (08:12)
[2019-08-11] MEDS ORDERED: Warfarin 2.5 MG Tab PO SCH (16:00)
[2019-08-11] MEDS: Petrolatum,White Jelly 30 GM Tube TOP SCH (21:38)
[2019-08-11] MEDS: Amiodarone 200 MG Tab PO SCH (21:39)
[2019-08-11] MEDS: Carvedilol 6.25 MG Tab PO SCH (21:39)
[2019-08-11] MEDS: Tamsulosin 0.4 MG Cap.ER PO SCH (21:39)
[2019-08-11] MEDS: Ferrous Sulfate 325 MG Tab PO SCH (21:39)
[2019-08-11] MEDS: Famotidine 20 MG Tab PO SCH (21:39)
[2019-08-12] MEDS: Potassium Chloride 20 MEQ Tab.ER PO SCH (08:23)
[2019-08-12] MEDS: Isosorbide Dinitrate 10 MG Tab PO SCH (08:23)
[2019-08-12] MEDS: Furosemide 80 MG Tab PO SCH (08:23)
[2019-08-12 08:28] VITALS: BP 138/67
[2019-08-12] MEDS: Acetaminophen/Codeine 300-30 MG Tab PO PRN (10:31)
[2019-08-12 11:22] VITALS: PULSE 64
--- NOTE | 2019-08-13 07:47 | DISCH ---
DISCHARGE DATE: 08/12/2019 REASON FOR ADMISSION: 1. Generalized weakness. 2. Pneumonia. 3. COPD. 4. CHF. 5. Type 2 diabetes. 6. Obesity. 7. Atrial fibrillation. DISCHARGE DIAGNOSES: 1. Generalized weakness. 2. Pneumonia. 3. Chronic obstructive pulmonary disease. 4. Congestive heart failure. 5. Type 2 diabetes. 6. Obesity. 7. Atrial fibrillation. 8. Fracture of the humerus and needing closed reduction of the right arm. BRIEF HISTORY AND HOSPITAL COURSE: This is an 84-year-old male from home, presented with shortness of breath, cough, chest pain, was admitted for pneumonia. Then, after improvement, was brought to the swing bed for rehab. He had a trivial injury that resulted in a fracture of the humerus, that was reduced by Dr. Santiago. He has slowly regained his strength and he has finished his antibiotics and he is now ready to go home. He did have an episode of nosebleed during the hospital stay that was controlled by a nasal rocket. He is on Coumadin for atrial fibrillation. DISCHARGE MEDICATIONS: 1. Glipizide 10 mg b.i.d. 2. He will also go home on Coumadin 2.5 mg daily. 3. Afrin nasal spray p.r.n. 4. He will also go home on amiodarone 200 mg a day. 5. Carvedilol 6.25 mg at bedtime. 6. Ferrous sulfate 325 mg a day. 7. Furosemide 80 mg daily, along with potassium supplementation. 8. Nitroglycerin p.r.n. 9. Ranitidine 150 mg at bedtime. 10.Flomax 0.4 mg at bedtime. FOLLOWUP: He will see Dr. Ibarra in the group home. I spent more than 35 minutes in the discharge of the patient. He does need help with ADLs and nursing, hence the need for a retirement facility. /[id number] MORTEZA/LEONARDO
[2019-08-14] MEDS ORDERED: Warfarin 5 MG Tab PO SCH (16:00)
== END 2019-08-12 10:50 | DRG 291 ==
LOC: FB.MS 12:10
PROVIDERS: ADMIT Family Medicine; ATTEND Family Medicine
PROC: 2Y41X5Z Packing of Nasal Region using Packing Material (ICD-10-PCS; principal; 2019-08-02)
DX: I13.0 Hypertensive heart and chronic kidney disease with heart failure and stage 1 through stage 4 chronic kidney disease, or unspecified chronic kidney disease (principal); J18.9 Pneumonia, unspecified organism; M84.421A Pathological fracture, right humerus, initial encounter for fracture; J44.0 Chronic obstructive pulmonary disease with (acute) lower respiratory infection; I42.9 Cardiomyopathy, unspecified; R04.0 Epistaxis; I48.91 Unspecified atrial fibrillation; E78.00 Pure hypercholesterolemia, unspecified; K21.9 Gastro-esophageal reflux disease without esophagitis; N18.9 Chronic kidney disease, unspecified; E11.22 Type 2 diabetes mellitus with diabetic chronic kidney disease; M19.90 Unspecified osteoarthritis, unspecified site; E66.9 Obesity, unspecified; I25.10 Atherosclerotic heart disease of native coronary artery without angina pectoris; I50.9 Heart failure, unspecified; H54.7 Unspecified visual loss; Z87.891 Personal history of nicotine dependence; Z79.2 Long term (current) use of antibiotics; Z88.0 Allergy status to penicillin; Z88.8 Allergy status to other drugs, medicaments and biological substances; Z79.4 Long term (current) use of insulin; Z95.0 Presence of cardiac pacemaker; I25.2 Old myocardial infarction; Z86.73 Personal history of transient ischemic attack (TIA), and cerebral infarction without residual deficits; Z95.818 Presence of other cardiac implants and grafts; Z79.01 Long term (current) use of anticoagulants; Z79.899 Other long term (current) drug therapy; Z95.5 Presence of coronary angioplasty implant and graft; Z90.49 Acquired absence of other specified parts of digestive tract; Z68.34 Body mass index [BMI] 34.0-34.9, adult
CPT/HCPCS: 36415; 71046; 73060-RT; 76000; 82962; 85610; 94760; 97110-GO; 97116-GP; 97161-GP; 97165-GO; 97530-GO; 97530-GP; 97535-GO; A9270-GY; J1815; J2250; J2704; J7120

== ENCOUNTER 2019-08-13 15:57 | Emergency (ER) | payer MEDICARE ==
[2019-08-13] MEDS ORDERED: Phytonadione ORAL 5mg/5ml Soln Simple Syrup U/D PO ONE (16:14)
--- NOTE | 2019-08-13 17:18 | EDM.PDOC ---
ED HPI GENERAL MEDICAL PROBLEM - General Chief Complaint: General Stated Complaint: RECTAL BLEEDING Time Seen by Provider: 08/13/19 16:30 Source of Information: Reports: Patient History Limitations: Reports: No Limitations - History of Present Illness INITIAL COMMENTS - FREE TEXT/NARRATIVE: Patient presented to the ED because of LGI bleed today. His stool is mixed with bright red blood. There is no associated abdominal pain, N/V/D. He is taking coumadin because of a chronic AFIB. Right Upper Arm Pain Score (Numeric/FACES): 5 - Related Data Allergies Allergy/AdvReac Type Severity Reaction Status Date / Time Penicillins Allergy Hives Verified 07/31/19 14:48 meclizine AdvReac Intermediate Confusion Verified 07/31/19 14:48 tramadol AdvReac Mild Dizziness Verified 07/31/19 14:48 Home Meds: Home Meds Potassium Chloride 20 meq PO DAILY 03/17/14 [History] Amiodarone [Cordarone] 200 mg PO BEDTIME 07/19/15 [History] Furosemide 80 mg PO DAILY 01/25/17 [History] Isosorbide Dinitrate 10 mg PO BID@,16 01/25/17 [History] Carvedilol [Coreg] 6.25 mg PO BEDTIME 05/23/19 [History] Acetaminophen [Tylenol Extra Strength] 1,000 mg PO BID 07/31/19 [History] Alum Hydrox/Mag Hydrox/Simeth [Maalox Advanced] 30 ml PO BID PRN 07/31/19 [ History] Ferrous Sulfate 325 mg PO BEDTIME 07/31/19 [History] Nitroglycerin 0.4 mg SL Q5M PRN 07/31/19 [History] Tamsulosin [Flomax] 0.4 mg PO BEDTIME 07/31/19 [History] Warfarin Sliding Scale [Coumadin Sliding Scale] 1 ea PO ASDIRECTED 07/31/19 [ History] raNITIdine HCl [Zantac] 150 mg PO BEDTIME 07/31/19 [History] Oxymetazoline [Afrin Original 0.05% Nasal [place]] 1 spray BERYL ASDIRECTED PRN #1 bottle 08/12/19 [Rx] Warfarin [Coumadin] 2.5 mg PO DAILY #30 tablet 08/12/19 [Rx] glipiZIDE [Glipizide ER] 10 mg PO BID #60 tab.er.24 08/12/19 [Rx] Acetaminophen 650 mg PO Q4HR PRN 08/13/19 [History] Past Medical History HEENT History: Reports: Allergic Rhinitis, Impaired Vision Other HEENT History: Wears glasses. Cardiovascular History: Reports: Afib, Arrhythmia, CAD, Cardiomyopathy, Heart Failure, High Cholesterol, Hypertension, CT, Pacemaker, Other (See Below) Other Cardiovascular History: [place] WITH CARDIOVERSION IN JUN 2015, ANTERIOR CT 2006, CT X3, NEAR SYNCOPE, PAROXYSMAL ATRIAL FIBRILLATION, VENTRICULAR TACHYCARDIA. Respiratory History: Reports: Sleep Apnea, SOB Other Respiratory History: pt uses oxygen at bedtime Gastrointestinal History: Reports: GERD Genitourinary History: Reports: Chronic Renal Insuffiency Musculoskeletal History: Reports: Arthritis, Fracture Other Musculoskeletal History: R elbow fx, rib fx. Neurological History: Reports: CVA, TIA Endocrine/Metabolic History: Reports: Diabetes, Type II, Obesity/BMI 30+ Hematologic History: Reports: Anemia, Blood Transfusion(s) Oncologic (Cancer) History: Reports: None Dermatologic History: Reports: Eczema - Infectious Disease History Infectious Disease History: Reports: Chicken Pox, Measles - Past Surgical History HEENT Surgical History: Reports: Eye Surgery Cardiovascular Surgical History: Reports: AICD, Coronary Artery Stent, Pacer, Percutaneous Transluminal Angioplasty GI Surgical History: Reports: Appendectomy, Cholecystectomy, Hernia Repair/Other Social & Family History - Family History Family Medical History: Noncontributory - Tobacco Use Smoking Status *Q: Never Smoker - Caffeine Use Caffeine Use: Reports: Coffee - Recreational Drug Use Recreational Drug Use: No - Living Situation & Occupation Living situation: Reports: , with Spouse Occupation: Retired ED ROS GENERAL - Review of Systems Review Of Systems: See Below Constitutional: Reports: No Symptoms HEENT: Reports: No Symptoms Respiratory: Reports: No Symptoms Cardiovascular: Reports: No Symptoms Endocrine: Reports: No Symptoms GI/Abdominal: Reports: Bloody Stool : Reports: No Symptoms Musculoskeletal: Reports: No Symptoms Skin: Reports: No Symptoms ED EXAM, GENERAL - Physical Exam Exam: See Below Exam Limited By: No Limitations General Appearance: Alert, No Apparent Distress Ears: Normal External Exam Nose: Normal Inspection Throat/Mouth: Normal Inspection Head: Atraumatic, Normocephalic Neck: Normal Inspection, Supple Respiratory/Chest: No Respiratory Distress, Lungs Clear, Normal Breath Sounds Cardiovascular: Normal Peripheral Pulses, Regular Rate, Rhythm, No Edema, No Gallop, No JVD, No Murmur GI/Abdominal: Normal Bowel Sounds, Soft, Non-Tender, No Distention, No Mass Back Exam: Normal Inspection Course - Vital Signs Text/Narrative:: labs reviewed and discussed with patient and his and verbalized full understanding Hb-11.1 same as yesterday INR 3.3 Vit K 5 mg PO x1 Last Recorded V/S: Last Vital Signs Temp 36.5 C 08/13/19 16:27 Pulse 63 08/13/19 16:27 Resp 20 08/13/19 16:27 BP 107/56 L 08/13/19 16:27 Pulse Ox 98 08/13/19 16:27 - Orders/Labs/Meds Labs: Laboratory Tests 08/13/19 08/13/19 Range/Units 16:25 16:25 Hgb 11.1 L (13.5-17.8) g/dL PT 31.6 H (8.7-11.1) INR 3.30 H (0.89-1.13) Meds: Medications Discontinued Medications Generic Name Dose Route Start Last Admin Trade Name Freq PRN Reason Stop Dose Admin Phytonadione 5 mg 08/13/19 16:14 08/13/19 16:22 Aquamephyton PO 08/13/19 16:15 Not Given ONETIME ONE Phytonadione Confirm 08/13/19 16:20 08/13/19 16:25 Aquamephyton Administered 08/13/19 16:21 Not Given Dose 10 mg .ROUTE .STK-MED ONE Phytonadione 5 mg 08/13/19 16:22 08/13/19 16:24 Aquamephyton PO 08/13/19 16:52 5 mg NOW ONE Administration Departure - Departure Time of Disposition: 17:15 Disposition: DC/Tfer to SNF 03 Condition: Good Clinical Impression: Supratherapeutic INR, Bloody stools, Lower GI bleed - Discharge Information Instructions: Lower Gastrointestinal Bleeding Referrals: Luiz Dunn MD [Primary Care Provider] - Forms: ED Department Discharge Additional Instructions: Do no take your coumadin/warfarin for 3 days Start taking your regular dose of coumadin this Saturday Recheck your INR on Saturday08/18/19 Sepsis Event Note - Evaluation Sepsis Screening Result: No Definite Risk - Focused Exam Vital Signs: Vital Signs Temp Pulse Resp BP Pulse Ox 08/13/19 16:27 36.5 C 63 20 107/56 L 98 Date Exam was Performed: 08/13/19 Time Exam was Performed: 17:39
[2019-08-13 17:51] VITALS: BP 124/54; PULSE 61
== END 2019-08-13 17:30 ==
LOC: FB.ED 15:57
DX: K92.2 Gastrointestinal hemorrhage, unspecified (principal); R79.1 Abnormal coagulation profile; I48.91 Unspecified atrial fibrillation; I25.10 Atherosclerotic heart disease of native coronary artery without angina pectoris; E11.9 Type 2 diabetes mellitus without complications; K21.9 Gastro-esophageal reflux disease without esophagitis; Z88.0 Allergy status to penicillin; Z88.6 Allergy status to analgesic agent; Z88.8 Allergy status to other drugs, medicaments and biological substances; Z79.899 Other long term (current) drug therapy; Z86.73 Personal history of transient ischemic attack (TIA), and cerebral infarction without residual deficits; Z79.84 Long term (current) use of oral hypoglycemic drugs
CPT/HCPCS: 36415; 85018; 85610; 99283; J3430

== ENCOUNTER 2019-08-16 07:13 | Inpatient (IN) | payer MEDICARE ==
[2019-08-16] MEDS ORDERED: Furosemide 40 MG/4 ML VIAL IVPUSH ONE ×2 (07:21→14:00)
[2019-08-16] MEDS ORDERED: Albuterol 0.083% 2.5 MG/3 ML Neb Soln NEB ONE (07:21)
--- NOTE | 2019-08-16 07:27 | EDM.PDOC ---
ED HPI GENERAL MEDICAL PROBLEM - General Chief Complaint: Cardiovascular Problem Stated Complaint: SOB, 10 LB WEIGHT GAIN IN 3 DAYS Time Seen by Provider: 08/16/19 07:22 Source of Information: Reports: Patient, RN Notes Reviewed History Limitations: Reports: No Limitations - History of Present Illness INITIAL COMMENTS - FREE TEXT/NARRATIVE: [facility] and cough x 2 days. Also complains of right sided chest pain, which has been a recurrent complaint at the [facility], usually relieved by Tylenol. He has gained 10 lbs in 3 days. Prior medical history includes T2DM, CAD, Afib, CHF, and CKD. Duration: Day(s): (2) Location: Reports: Chest Severity: Moderate - Related Data Allergies Allergy/AdvReac Type Severity Reaction Status Date / Time Penicillins Allergy Hives Verified 08/16/19 07:56 meclizine AdvReac Intermediate Confusion Verified 08/16/19 07:56 tramadol AdvReac Mild Dizziness Verified 08/16/19 07:56 Home Meds: Home Meds Potassium Chloride 20 meq PO DAILY 03/17/14 [History] Amiodarone [Cordarone] 200 mg PO BEDTIME 07/19/15 [History] Furosemide 80 mg PO DAILY 01/25/17 [History] Isosorbide Dinitrate 10 mg PO BID@,16 01/25/17 [History] Carvedilol [Coreg] 6.25 mg PO BEDTIME 05/23/19 [History] Acetaminophen [Tylenol Extra Strength] 1,000 mg PO BID 07/31/19 [History] Alum Hydrox/Mag Hydrox/Simeth [Maalox Advanced] 30 ml PO BID PRN 07/31/19 [ History] Ferrous Sulfate 325 mg PO BEDTIME 07/31/19 [History] Nitroglycerin 0.4 mg SL Q5M PRN 07/31/19 [History] Tamsulosin [Flomax] 0.4 mg PO BEDTIME 07/31/19 [History] Warfarin Sliding Scale [Coumadin Sliding Scale] 1 ea PO ASDIRECTED 07/31/19 [ History] raNITIdine HCl [Zantac] 150 mg PO BEDTIME 07/31/19 [History] Oxymetazoline [Afrin Original 0.05% Nasal [place]] 1 spray BERYL ASDIRECTED PRN #1 bottle 02/19/20 [Rx] Warfarin [Coumadin] 2.5 mg PO DAILY #30 tablet 08/12/19 [Rx] glipiZIDE [Glipizide ER] 10 mg PO BID #60 tab.er.24 08/12/19 [Rx] Acetaminophen 650 mg PO Q4HR PRN 08/13/19 [History] Past Medical History HEENT History: Reports: Allergic Rhinitis, Impaired Vision Other HEENT History: Wears glasses. Cardiovascular History: Reports: Afib, Arrhythmia, CAD, Cardiomyopathy, Heart Failure, High Cholesterol, Hypertension, [place], Pacemaker, Other (See Below) Other Cardiovascular History: VT WITH CARDIOVERSION IN JUN 2015, ANTERIOR IN 2005, [place] X3, NEAR SYNCOPE, PAROXYSMAL ATRIAL FIBRILLATION, VENTRICULAR TACHYCARDIA. Respiratory History: Reports: Sleep Apnea, SOB Other Respiratory History: pt uses oxygen at bedtime Gastrointestinal History: Reports: GERD Genitourinary History: Reports: Chronic Renal Insuffiency Musculoskeletal History: Reports: Arthritis, Fracture Other Musculoskeletal History: R elbow fx, rib fx. Neurological History: Reports: CVA, TIA Endocrine/Metabolic History: Reports: Diabetes, Type II, Obesity/BMI 30+ Hematologic History: Reports: Anemia, Blood Transfusion(s) Oncologic (Cancer) History: Reports: None Dermatologic History: Reports: Eczema - Infectious Disease History Infectious Disease History: Reports: Chicken Pox, Measles - Past Surgical History HEENT Surgical History: Reports: Eye Surgery Cardiovascular Surgical History: Reports: AICD, Coronary Artery Stent, Pacer, Percutaneous Transluminal Angioplasty GI Surgical History: Reports: Appendectomy, Cholecystectomy, Hernia Repair/Other Musculoskeletal Surgical History: Reports: Other (See Below) (ORIF right humerus fracture 08/03/19) Social & Family History - Family History Family Medical History: Noncontributory - Caffeine Use Caffeine Use: Reports: Coffee - Living Situation & Occupation Living situation: Reports: , with Spouse Occupation: Retired ED ROS GENERAL - Review of Systems Review Of Systems: Comprehensive ROS is negative, except as noted in HPI. ED EXAM, GENERAL - Physical Exam Exam: See Below Exam Limited By: No Limitations General Appearance: Alert, WD/WN, No Apparent Distress Ears: Normal External Exam Nose: Normal Inspection Throat/Mouth: No Airway Compromise Head: Atraumatic, Normocephalic Neck: Full Range of Motion Respiratory/Chest: No Respiratory Distress, Decreased Breath Sounds, Wheezing Cardiovascular: Regular Rate, Rhythm, No Murmur, Other (right chest wall tenderness) Peripheral Pulses: 2+: Radial (R) Back Exam: Full Range of Motion Extremities: Non-Tender, Pedal Edema, Other (right arm in splint) Neurological: Alert, Normal Cognition Skin Exam: Warm, Dry EKG INTERPRETATION EKG Date: 08/16/19 Time: 08:32 Rhythm: Other (Atrial paced rhythm) Rate (Beats/Min): 60 QRS: LBBB Comparison: No Change (No change 07/21/19) Course - Vital Signs Last Recorded V/S: Last Vital Signs Temp 36.1 C 08/16/19 07:20 Pulse 64 08/16/19 07:27 Resp 20 08/16/19 07:20 BP 124/59 L 08/16/19 07:20 Pulse Ox 96 08/16/19 07:20 - Orders/Labs/Meds Orders: Active Orders 24 hr Category Date Time Status Admission Status [Patient Status] [ADT] Routine ADT 08/16/19 09:51 Ordered EKG Documentation Completion [RC] ASDIRECTED Care 08/16/19 07:15 Active Cohen Catheter Insertion [Insert Urinary Catheter] [OM. Care 08/16/19 07:30 Ordered PC] Q24H RT Aerosol Therapy [RC] ASDIRECTED Care 08/16/19 07:21 Active Urinary Catheter Assessment [RC] QSHIFT Care 08/16/19 07:27 Active CXR [Chest 1V Frontal] [CR] Stat Exams 08/16/19 07:16 Taken CULTURE BLOOD [BC] Urgent Lab 08/16/19 07:30 Received CULTURE BLOOD [BC] Urgent Lab 08/16/19 07:35 Received Sodium Chloride 0.9% [Saline Flush] Med 08/16/19 07:16 Active 10 ml FLUSH ASDIRECTED PRN Blood Culture x2 Reflex Set [OM.PC] Urgent Oth 08/16/19 07:20 Ordered Saline Lock Insert [OM.PC] Routine Oth 08/16/19 07:16 Ordered EKG 12 Lead [EK] Stat Ther 08/16/19 07:15 Ordered Medication Orders Sodium Chloride (Saline Flush) 10 ml FLUSH ASDIRECTED PRN PRN Reason: Keep Vein Open Labs: Laboratory Tests 08/16/19 08/16/19 08/16/19 Range/Units 07:30 07:30 07:30 WBC 14.1 H (4.5-12.0) X10-3/uL RBC 4.39 (4.30-5.75) x10(6)uL Hgb 11.0 L (13.5-17.8) g/dL Hct 35.9 (30.0-51.3) % MCV 81.7 (80-96) fL MCH 25.1 L (27.7-33.6) pg MCHC 30.7 L (32.2-35.4) g/dL RDW 22.4 H (11.5-15.5) % Plt Count 370 H (125-369) X10(3)uL MPV 8.0 (7.4-10.4) fL Add Manual Diff Yes Neutrophils % (Manual) 82 (46-82) % Lymphocytes % (Manual) 8 L (13-37) % Monocytes % (Manual) 9 (4-12) % Eosinophils % (Manual) 1 (0-5) % Anisocytosis Moderate H PT 13.7 H (9.0-11.1) sec INR 1.41 H (1.00-1.24) Sodium 147 H (135-145) mmol/L Potassium 4.7 D (3.5-5.3) mmol/L Chloride 107 D (100-110) mmol/L Carbon Dioxide 34 H (21-32) mmol/L BUN 22 H D (7-18) mg/dL Creatinine 1.6 H (0.70-1.30) mg/dL Est Cr Clr Drug Dosing TNP Estimated GFR (MDRD) 41 L (>60) BUN/Creatinine Ratio 13.8 (9-20) Glucose 129 H D (80-116) mg/dL Lactic Acid (0.4-2.0) mmol/L Calcium 8.4 L (8.6-10.2) mg/dL Total Bilirubin 0.6 (0.1-1.3) mg/dL AST 31 H D (5-25) IU/L ALT 75 H D (12-36) U/L Alkaline Phosphatase 224 H (56-112) IU/L Troponin I (4.0-60.3) pg/mL NT-Pro-B Natriuret Pep (<=450) pg/mL Total Protein 5.7 L (6.0-8.0) g/dL Albumin 2.0 L (3.2-4.6) g/dL Globulin 3.7 g/dL Albumin/Globulin Ratio 0.5 Urine Color (YELLOW) Urine Appearance (CLEAR) Urine pH (5.0-6.5) Ur Specific [place] (1.010-1.025) Urine Protein (NEGATIVE) mg/dL Urine Glucose (UA) (NORMAL) mg/dL Urine Ketones (NEGATIVE) mg/dL Urine Occult Blood (NEGATIVE) Urine Nitrite (NEGATIVE) Urine Bilirubin (NEGATIVE) Urine Urobilinogen (NEGATIVE) mg/dL Ur Leukocyte Esterase (NEGATIVE) Urine RBC (0-5) Urine WBC (0-5) Ur Squamous Epith Cells (NS,R,O) Urine Bacteria (NS) 08/16/19 08/16/19 08/16/19 Range/Units 07:30 07:30 08:46 WBC (4.5-12.0) X10-3/uL RBC (4.30-5.75) x10(6)uL Hgb (13.5-17.8) g/dL Hct (30.0-51.3) % MCV (80-96) fL MCH (27.7-33.6) pg MCHC (32.2-35.4) g/dL RDW (11.5-15.5) % Plt Count (125-369) X10(3)uL MPV (7.4-10.4) fL Add Manual Diff Neutrophils % (Manual) (46-82) % Lymphocytes % (Manual) (13-37) % Monocytes % (Manual) (4-12) % Eosinophils % (Manual) (0-5) % Anisocytosis PT (9.0-11.1) sec INR (1.00-1.24) Sodium (135-145) mmol/L Potassium (3.5-5.3) mmol/L Chloride (100-110) mmol/L Carbon Dioxide (21-32) mmol/L BUN (7-18) mg/dL Creatinine (0.70-1.30) mg/dL Est Cr Clr Drug Dosing Estimated GFR (MDRD) (>60) BUN/Creatinine Ratio (9-20) Glucose (80-116) mg/dL Lactic Acid 3.3 H* (0.4-2.0) mmol/L Calcium (8.6-10.2) mg/dL Total Bilirubin (0.1-1.3) mg/dL AST (5-25) IU/L ALT (12-36) U/L Alkaline Phosphatase (56-112) IU/L Troponin I 28.2 (4.0-60.3) pg/mL NT-Pro-B Natriuret Pep 5864 H* (<=450) pg/mL Total Protein (6.0-8.0) g/dL Albumin (3.2-4.6) g/dL Globulin g/dL Albumin/Globulin Ratio Urine Color Yellow (YELLOW) Urine Appearance Slightly cloudy (CLEAR) Urine pH 5.0 (5.0-6.5) Ur Specific [place] 1.020 (1.010-1.025) Urine Protein Negative (NEGATIVE) mg/dL Urine Glucose (UA) Normal (NORMAL) mg/dL Urine Ketones Negative (NEGATIVE) mg/dL Urine Occult Blood Large H (NEGATIVE) Urine Nitrite Negative (NEGATIVE) Urine Bilirubin Negative (NEGATIVE) Urine Urobilinogen Normal (NEGATIVE) mg/dL Ur Leukocyte Esterase Negative (NEGATIVE) Urine RBC >100 H (0-5) Urine WBC 0-5 (0-5) Ur Squamous Epith Cells Occasional (NS,R,O) Urine Bacteria Few H (NS) Meds: Medications Generic Name Dose Route Start Last Admin Trade Name Freq PRN Reason Stop Dose Admin Sodium Chloride 10 ml 08/16/19 07:16 Saline Flush FLUSH ASDIRECTED PRN Keep Vein Open Discontinued Medications Generic Name Dose Route Start Last Admin Trade Name Freq PRN Reason Stop Dose Admin Albuterol 2.5 mg 08/16/19 07:21 08/16/19 07:42 Proventil Neb Soln NEB 08/16/19 07:22 2.5 mg ONETIME ONE Administration Cefepime HCl 2 gm 08/16/19 08:21 08/16/19 09:35 Maxipime IVPUSH 08/16/19 08:22 2 gm ONETIME ONE Administration Furosemide 80 mg 08/16/19 07:21 08/16/19 09:11 Lasix IVPUSH 08/16/19 07:22 80 mg NOW ONE Administration Lidocaine HCl 6 ml 08/16/19 07:28 08/16/19 08:02 Glydo .XX 08/16/19 07:29 6 ml ONETIME ONE Administration - Radiology Interpretation Free Text/Narrative:: CXR: Right lung base infiltrate. Small right pleural effusion with fluid seen in the right minor fissure. - Re-Assessments/Exams Free Text/Narrative Re-Assessment/Exam: 08/16/19 09:53 800 ml urine output after Lasix 80mg IV. Cefepime 2g IV given, no signs of allergic reaction. Dr. Aleman agrees to admit to [facility]. Departure - Departure Time of Disposition: 09:54 Disposition: Admitted As Inpatient 65 Clinical Impression: Elevated lactic acid level Pneumonia Qualifiers: Pneumonia type: due to unspecified organism Laterality: right Lung location: lower lobe of lung Qualified Code(s): J18.9 - Pneumonia, unspecified organism Acute exacerbation of CHF (congestive heart failure) Qualifiers: Heart failure type: unspecified Qualified Code(s): I50.9 - Heart failure, unspecified Referrals: Luiz Dunn MD [Primary Care Provider] - Forms: ED Department Discharge Sepsis Event Note - Focused Exam Vital Signs: Vital Signs Temp Pulse Resp BP Pulse Ox 08/16/19 07:27 64 08/16/19 07:20 36.1 C 75 20 124/59 L 96 Date Exam was Performed: 08/16/19 Time Exam was Performed: 09:53 - My Orders Last 24 Hours: My Active Orders 08/16/19 07:15 EKG Documentation Completion [RC] ASDIRECTED EKG 12 Lead [EK] Stat 08/16/19 07:16 CXR [Chest 1V Frontal] [CR] Stat Sodium Chloride 0.9% [Saline Flush] 10 ml FLUSH ASDIRECTED PRN Saline Lock Insert [OM.PC] Routine 08/16/19 07:20 Blood Culture x2 Reflex Set [OM.PC] Urgent 08/16/19 07:21 RT Aerosol Therapy [RC] ASDIRECTED 08/16/19 07:27 Urinary Catheter Assessment [RC] QSHIFT 08/16/19 07:30 Cohen Catheter Insertion [Insert Urinary Catheter] [OM.PC] Q24H CULTURE BLOOD [BC] Urgent 08/16/19 07:35 CULTURE BLOOD [BC] Urgent 08/16/19 09:51 Admission Status [Patient Status] [ADT] Routine - Assessment/Plan Last 24 Hours: My Active Orders 08/16/19 07:15 EKG Documentation Completion [RC] ASDIRECTED EKG 12 Lead [EK] Stat 08/16/19 07:16 CXR [Chest 1V Frontal] [CR] Stat Sodium Chloride 0.9% [Saline Flush] 10 ml FLUSH ASDIRECTED PRN Saline Lock Insert [OM.PC] Routine 08/16/19 07:20 Blood Culture x2 Reflex Set [OM.PC] Urgent 08/16/19 07:21 RT Aerosol Therapy [RC] ASDIRECTED 08/16/19 07:27 Urinary Catheter Assessment [RC] QSHIFT 08/16/19 07:30 Cohen Catheter Insertion [Insert Urinary Catheter] [OM.PC] Q24H CULTURE BLOOD [BC] Urgent 08/16/19 07:35 CULTURE BLOOD [BC] Urgent 08/16/19 09:51 Admission Status [Patient Status] [ADT] Routine
[2019-08-16] MEDS ORDERED: Lidocaine 2% HCl 6 ML JEL.PF.APP ONE (07:28)
[2019-08-16] MEDS ORDERED: Cefepime 2 GM Vial IVPUSH ONE (08:21)
[2019-08-16] MEDS ORDERED: Ondansetron 4 MG Tab.DIS PO PRN (10:28)
[2019-08-16] MEDS ORDERED: Sodium Chloride 0.9% 10 ML Syringe FLUSH PRN (10:28)
[2019-08-16] MEDS ORDERED: Acetaminophen/Codeine 300-30 MG Tab PO PRN (10:46)
--- NOTE | 2019-08-16 10:53 | PCM.HP.2 ---
H&P History of Present Illness - General Date of Service: 08/16/19 Admit Problem/Dx: Admission Diagnosis/Problem Admission Diagnosis/Problem Pneumonia Source of Information: Patient History Limitations: Reports: No Limitations - History of Present Illness Initial Comments - Free Text/Narative: This is an 84-year-old male patient this at rehabilitation at the [facility] for CHF, and a broken right femur. He was in the hospital for pneumonia, CHF came back to the hospital for swing bed and broke his arm. Was repaired and he was transferred to [facility]. He said increasing weight of 10 pounds. He has a slight cough. He is alert shortness of breath, no sore throat some nasal congestion. He denies chest pain but he does have leg swelling. He does have a defibrillator in and a pacemaker for atrial fib. He had rectal bleeding a few days ago his Coumadin was stopped was also restart today according to the ER doctor talked to the nurses. I will follow that. - Related Data Allergies/Adverse Reactions: Allergies Allergy/AdvReac Type Severity Reaction Status Date / Time Penicillins Allergy Hives Verified 08/16/19 07:56 meclizine AdvReac Intermediate Confusion Verified 08/16/19 07:56 tramadol AdvReac Mild Dizziness Verified 08/16/19 07:56 Home Medications: Home Meds Potassium Chloride 20 meq PO DAILY 03/17/14 [History] Amiodarone [Cordarone] 200 mg PO BEDTIME 07/19/15 [History] Furosemide 80 mg PO DAILY 01/25/17 [History] Isosorbide Dinitrate 10 mg PO BID@,16 01/25/17 [History] Carvedilol [Coreg] 6.25 mg PO BEDTIME 05/23/19 [History] Acetaminophen [Tylenol Extra Strength] 1,000 mg PO BID 07/31/19 [History] Alum Hydrox/Mag Hydrox/Simeth [Maalox Advanced] 30 ml PO BID PRN 07/31/19 [ History] Ferrous Sulfate 325 mg PO BEDTIME 07/31/19 [History] Nitroglycerin 0.4 mg SL Q5M PRN 07/31/19 [History] Tamsulosin [Flomax] 0.4 mg PO BEDTIME 07/31/19 [History] Warfarin Sliding Scale [Coumadin Sliding Scale] 1 ea PO ASDIRECTED 07/31/19 [ History] raNITIdine HCl [Zantac] 150 mg PO BEDTIME 07/31/19 [History] Oxymetazoline [Afrin Original 0.05% Nasal Joy] 1 spray BERYL ASDIRECTED PRN #1 bottle 08/12/19 [Rx] Warfarin [Coumadin] 2.5 mg PO DAILY #30 tablet 08/12/19 [Rx] glipiZIDE [Glipizide ER] 10 mg PO BID #60 tab.er.24 08/12/19 [Rx] Acetaminophen 650 mg PO Q4HR PRN 08/13/19 [History] Past Medical History HEENT History: Reports: Allergic Rhinitis, Impaired Vision Other HEENT History: Wears glasses. Cardiovascular History: Reports: Afib, Arrhythmia, CAD, Cardiomyopathy, Heart Failure, High Cholesterol, Hypertension, SD, Pacemaker, Other (See Below) Other Cardiovascular History: VT WITH CARDIOVERSION IN JUN 2015, ANTERIOR SD 2006, SD X3, NEAR SYNCOPE, PAROXYSMAL ATRIAL FIBRILLATION, VENTRICULAR TACHYCARDIA. Respiratory History: Reports: Sleep Apnea, SOB Other Respiratory History: pt uses oxygen at bedtime Gastrointestinal History: Reports: GERD Genitourinary History: Reports: Chronic Renal Insuffiency Musculoskeletal History: Reports: Arthritis, Fracture Other Musculoskeletal History: R elbow fx, rib fx. Neurological History: Reports: CVA, TIA Endocrine/Metabolic History: Reports: Diabetes, Type II, Obesity/BMI 30+ Hematologic History: Reports: Anemia, Blood Transfusion(s) Oncologic (Cancer) History: Reports: None Dermatologic History: Reports: Eczema - Infectious Disease History Infectious Disease History: Reports: Chicken Pox, Measles - Past Surgical History HEENT Surgical History: Reports: Eye Surgery Cardiovascular Surgical History: Reports: AICD, Coronary Artery Stent, Pacer, Percutaneous Transluminal Angioplasty GI Surgical History: Reports: Appendectomy, Cholecystectomy, Hernia Repair/Other Musculoskeletal Surgical History: Reports: Other (See Below) (ORIF right humerus fracture 08/03/19) Social & Family History - Family History Family Medical History: Noncontributory - Tobacco Use Smoking Status *Q: Never Smoker - Caffeine Use Caffeine Use: Reports: Coffee - Recreational Drug Use Recreational Drug Use: No - Living Situation & Occupation Living situation: Reports: , with Spouse Occupation: Retired H&P Review of Systems - Review of Systems: Review Of Systems: See Below General: Reports: Weakness, Fatigue HEENT: Reports: Rhinitis Pulmonary: Reports: Shortness of Breath, Cough. Denies: Sputum, Hemoptysis Cardiovascular: Reports: Edema. Denies: Chest Pain Gastrointestinal: Reports: No Symptoms Genitourinary: Reports: No Symptoms Musculoskeletal: Reports: Other (Right arm fracture having pain from it) Skin: Reports: No Symptoms Psychiatric: Reports: No Symptoms Neurological: Reports: No Symptoms Hematologic/Lymphatic: Reports: No Symptoms Immunologic: Reports: No Symptoms Exam - Exam Exam: See Below - Vital Signs Vital Signs: Last Vital Signs Temp 97.0 F 08/16/19 07:20 Pulse 65 08/16/19 09:57 Resp 20 08/16/19 09:57 BP 131/65 08/16/19 09:57 Pulse Ox 94 L 08/16/19 09:57 Weight: 210 lb 3.2 oz - Exam General: Alert, Cooperative HEENT: Hearing Intact, Posterior Pharynx Clear, TMs Clear Neck: Supple, Trachea Midline Lungs: Clear to Auscultation, Normal Respiratory Effort, Decreased Breath Sounds , Crackles. No: Rales, Rhonchi Cardiovascular: Regular Rate, Irregular Rhythm. No: Tachycardia, Systolic Murmur GI/Abdominal Exam: Normal Bowel Sounds, Soft, Non-Tender, No Organomegaly, No Distention, No Abnormal Bruit, No Mass Back Exam: Normal Inspection Extremities: Non-Tender (Right arm in the sling and splint.), Pedal Edema Skin: Warm, Dry, Intact Neurological: Normal Speech Neuro Extensive - Mental Status: Alert, Oriented x3, Normal Cognition Psychiatric: Alert - Patient Data Lab Results Last 24 hrs: Laboratory Results - last 24 hr 08/16/19 08/16/19 08/16/19 Range/Units 07:30 07:30 07:30 WBC 14.1 H (4.5-12.0) X10-3/uL RBC 4.39 (4.30-5.75) x10(6)uL Hgb 11.0 L (13.5-17.8) g/dL Hct 35.9 (30.0-51.3) % MCV 81.7 (80-96) fL MCH 25.1 L (27.7-33.6) pg MCHC 30.7 L (32.2-35.4) g/dL RDW 22.4 H (11.5-15.5) % Plt Count 370 H (125-369) X10(3)uL MPV 8.0 (7.4-10.4) fL Add Manual Diff Yes Neutrophils % (Manual) 82 (46-82) % Lymphocytes % (Manual) 8 L (13-37) % Monocytes % (Manual) 9 (4-12) % Eosinophils % (Manual) 1 (0-5) % Anisocytosis Moderate H PT 13.7 H (9.0-11.1) sec INR 1.41 H (1.00-1.24) Sodium 147 H (135-145) mmol/L Potassium 4.7 D (3.5-5.3) mmol/L Chloride 107 D (100-110) mmol/L Carbon Dioxide 34 H (21-32) mmol/L BUN 22 H D (7-18) mg/dL Creatinine 1.6 H (0.70-1.30) mg/dL Est Cr Clr Drug Dosing TNP Estimated GFR (MDRD) 41 L (>60) BUN/Creatinine Ratio 13.8 (9-20) Glucose 129 H D (80-116) mg/dL Lactic Acid (0.4-2.0) mmol/L Calcium 8.4 L (8.6-10.2) mg/dL Total Bilirubin 0.6 (0.1-1.3) mg/dL AST 31 H D (5-25) IU/L ALT 75 H D (12-36) U/L Alkaline Phosphatase 224 H (56-112) IU/L Troponin I (4.0-60.3) pg/mL NT-Pro-B Natriuret Pep (<=450) pg/mL Total Protein 5.7 L (6.0-8.0) g/dL Albumin 2.0 L (3.2-4.6) g/dL Globulin 3.7 g/dL Albumin/Globulin Ratio 0.5 Urine Color (YELLOW) Urine Appearance (CLEAR) Urine pH (5.0-6.5) Ur Specific [place] (1.010-1.025) Urine Protein (NEGATIVE) mg/dL Urine Glucose (UA) (NORMAL) mg/dL Urine Ketones (NEGATIVE) mg/dL Urine Occult Blood (NEGATIVE) Urine Nitrite (NEGATIVE) Urine Bilirubin (NEGATIVE) Urine Urobilinogen (NEGATIVE) mg/dL Ur Leukocyte Esterase (NEGATIVE) Urine RBC (0-5) Urine WBC (0-5) Ur Squamous Epith Cells (NS,R,O) Urine Bacteria (NS) 08/16/19 08/16/19 08/16/19 Range/Units 07:30 07:30 08:46 WBC (4.5-12.0) X10-3/uL RBC (4.30-5.75) x10(6)uL Hgb (13.5-17.8) g/dL Hct (30.0-51.3) % MCV (80-96) fL MCH (27.7-33.6) pg MCHC (32.2-35.4) g/dL RDW (11.5-15.5) % Plt Count (125-369) X10(3)uL MPV (7.4-10.4) fL Add Manual Diff Neutrophils % (Manual) (46-82) % Lymphocytes % (Manual) (13-37) % Monocytes % (Manual) (4-12) % Eosinophils % (Manual) (0-5) % Anisocytosis PT (9.0-11.1) sec INR (1.00-1.24) Sodium (135-145) mmol/L Potassium (3.5-5.3) mmol/L Chloride (100-110) mmol/L Carbon Dioxide (21-32) mmol/L BUN (7-18) mg/dL Creatinine (0.70-1.30) mg/dL Est Cr Clr Drug Dosing Estimated GFR (MDRD) (>60) BUN/Creatinine Ratio (9-20) Glucose (80-116) mg/dL Lactic Acid 3.3 H* (0.4-2.0) mmol/L Calcium (8.6-10.2) mg/dL Total Bilirubin (0.1-1.3) mg/dL AST (5-25) IU/L ALT (12-36) U/L Alkaline Phosphatase (56-112) IU/L Troponin I 28.2 (4.0-60.3) pg/mL NT-Pro-B Natriuret Pep 5864 H* (<=450) pg/mL Total Protein (6.0-8.0) g/dL Albumin (3.2-4.6) g/dL Globulin g/dL Albumin/Globulin Ratio Urine Color Yellow (YELLOW) Urine Appearance Slightly cloudy (CLEAR) Urine pH 5.0 (5.0-6.5) Ur Specific [place] 1.020 (1.010-1.025) Urine Protein Negative (NEGATIVE) mg/dL Urine Glucose (UA) Normal (NORMAL) mg/dL Urine Ketones Negative (NEGATIVE) mg/dL Urine Occult Blood Large H (NEGATIVE) Urine Nitrite Negative (NEGATIVE) Urine Bilirubin Negative (NEGATIVE) Urine Urobilinogen Normal (NEGATIVE) mg/dL Ur Leukocyte Esterase Negative (NEGATIVE) Urine RBC >100 H (0-5) Urine WBC 0-5 (0-5) Ur Squamous Epith Cells Occasional (NS,R,O) Urine Bacteria Few H (NS) Result Diagrams: 08/16/19 07:30 08/16/19 07:30 Raymundo Results Last 24 hrs: Microbiology 08/16/19 07:39 Influenza Type A Antigen Screen - Final Nasopharyngeal Swab NEGATIVE INFLUENZA A VIRUS AG REFERENCE RANGE: NEGATIVE Influenza Type B Antigen Screen - Final NEGATIVE INFLUENZA B VIRUS AG REFERENCE RANGE: NEGATIVE Sepsis Event Note - Evaluation Sepsis Screening Result: No Definite Risk - Focused Exam Vital Signs: Vital Signs Temp Pulse Resp BP Pulse Ox 08/16/19 09:57 65 20 131/65 94 L 08/16/19 07:27 64 08/16/19 07:20 97.0 F 75 20 124/59 L 96 Date Exam was Performed: 08/16/19 Time Exam was Performed: 10:47 - Problem List (1) Humerus fracture SNOMED Code(s): 63093707 ICD Code: S42.309A - UNSP FRACTURE OF SHAFT OF HUMERUS, UNSP ARM, INIT Status: Acute Current Visit: Yes (2) Acute exacerbation of CHF (congestive heart failure) SNOMED Code(s): 769012045, 34915975410210 ICD Code: I50.9 - HEART FAILURE, UNSPECIFIED Status: Acute Current Visit : Yes Qualifiers: Heart failure type: unspecified Qualified Code(s): I50.9 - Heart failure, unspecified (3) Elevated lactic acid level SNOMED Code(s): 2376298 ICD Code: R79.89 - OTHER SPECIFIED ABNORMAL FINDINGS OF BLOOD CHEMISTRY Status: Acute Current Visit: Yes (4) Pneumonia SNOMED Code(s): 806762735 ICD Code: J18.9 - PNEUMONIA, UNSPECIFIED ORGANISM Status: Acute Current Visit: Yes Qualifiers: Pneumonia type: due to unspecified organism Laterality: right Lung location: lower lobe of lung Qualified Code(s): J18.9 - Pneumonia, unspecified organism (5) Anticoagulant long-term use SNOMED Code(s): 268268729 ICD Code: Z79.01 - MCFP (CURRENT) USE OF ANTICOAGULANTS Status: Acute Current Visit: No (6) Diabetes type 2, controlled SNOMED Code(s): 90379278, 464968549 ICD Code: E11.9 - TYPE 2 DIABETES MELLITUS WITHOUT COMPLICATIONS Status: Acute Current Visit: No (7) Hypokalemia SNOMED Code(s): 45989688 ICD Code: E87.6 - HYPOKALEMIA Status: Acute Current Visit: No (8) Obesity SNOMED Code(s): 666628062, 365214084 ICD Code: E66.9 - OBESITY, UNSPECIFIED Status: Acute Current Visit: No Qualifiers: Obesity type: due to excess calories (9) Palliative care status SNOMED Code(s): 155959422 ICD Code: Z51.5 - ENCOUNTER FOR PALLIATIVE CARE Status: Acute Current Visit: No (10) Atrial fibrillation SNOMED Code(s): 50335151 ICD Code: I48.91 - UNSPECIFIED ATRIAL FIBRILLATION Status: Chronic Priority: Low Current Visit: No Qualifiers: Atrial fibrillation type: chronic Problem List Initiated/Reviewed/Updated: Yes Orders Last 24hrs: Active Orders 24 hr Category Date Time Status Admission Status [Patient Status] [ADT] Routine ADT 08/16/19 09:51 Active Accu Check [Blood Glucose Check, Bedside] [RC] BIDMEALS Care 08/16/19 10:42 Active Daily Weight [Height and Weight] [RC] DAILY Care 08/16/19 10:36 Active EKG Documentation Completion [RC] ASDIRECTED Care 08/16/19 07:15 Active Cohen Catheter Insertion [Insert Urinary Catheter] [OM. Care 08/16/19 07:30 Ordered PC] Q24H Height and Weight [RC] DAILY Care 08/16/19 10:02 Active Intake and Output [RC] QSHIFT Care 08/16/19 10:02 Active Notify Provider Vital Signs [RC] ASDIRECTED Care 08/16/19 10:03 Active Oxygen Therapy [RC] PRN Care 08/16/19 10:02 Active Oxygen Therapy [RC] PRN Care 08/16/19 10:28 Active Pulse Oximetry [RC] QSHIFT Care 08/16/19 10:02 Active RT Aerosol Therapy [RC] ASDIRECTED Care 08/16/19 07:21 Active Up to Chair [RC] ASDIRECTED Care 08/16/19 10:28 Active Urinary Catheter Assessment [RC] QSHIFT Care 08/16/19 07:27 Active VTE/DVT Education [RC] Per Unit Routine Care 08/16/19 10:02 Active VTE/DVT Education [RC] Per Unit Routine Care 08/16/19 10:28 Active Vital Signs [RC] Q4H Care 08/16/19 10:28 Active Vital Signs [RC] QSHIFT Care 08/16/19 10:02 Active OT Evaluation and Treatment [CONS] Routine Cons 08/16/19 10:28 Active PT Evaluation and Treatment [CONS] Routine Cons 08/16/19 10:28 Active 2 Gram Sodium Diet [DIET] Diet 08/16/19 Lunch Active Consistent Carbohydrate Diet [DIET] Diet 08/16/19 Dinner Active Consistent Carbohydrate Diet [DIET] Diet 08/16/19 Lunch Active CXR [Chest 1V Frontal] [CR] Stat Exams 08/16/19 07:16 Taken CBC WITH AUTO DIFF [HEME] AM Lab 08/17/19 05:11 Ordered COMPREHENSIVE METABOLIC PN,CMP [CHEM] AM Lab 08/17/19 05:11 Ordered CULTURE BLOOD [BC] Urgent Lab 08/16/19 07:30 Received CULTURE BLOOD [BC] Urgent Lab 08/16/19 07:35 Received LACTIC ACID [CHEM] Routine Lab 08/16/19 10:33 Ordered Acetaminophen/Codeine [Tylenol with Codeine No.3 300MG/ Med 08/16/19 10:46 Ordered 30MG] 1 tab PO Q6H PRN Cefepime [Maxipime] Med 08/16/19 11:00 Ordered 2 gm IVPUSH Q8H Enoxaparin [Lovenox] Med 08/16/19 10:30 Active 30 mg SUBCUT Q24H Furosemide [Lasix] Med 08/16/19 14:00 Once 80 mg IVPUSH NOW ONE Ondansetron [Zofran ODT] Med 08/16/19 10:28 Active 4 mg PO Q4H PRN Sodium Chloride 0.9% [Saline Flush] Med 08/16/19 07:16 Active 10 ml FLUSH ASDIRECTED PRN Sodium Chloride 0.9% [Saline Flush] Med 08/16/19 10:28 Active 10 ml FLUSH ASDIRECTED PRN Blood Culture x2 Reflex Set [OM.PC] Urgent Oth 08/16/19 07:20 Ordered Peripheral IV Insertion Adult [OM.PC] Routine Oth 08/16/19 10:28 Ordered Saline Lock Insert [OM.PC] Routine Oth 08/16/19 07:16 Ordered Sequential Compression Device [OM.PC] Per Unit Routine Oth 08/16/19 10:29 Ordered Resuscitation Status Routine Resus Stat 08/16/19 10:28 Ordered EKG 12 Lead [EK] Stat Ther 08/16/19 07:15 Ordered Medication Orders Cefepime HCl (Maxipime) 2 gm IVPUSH Q8H AP Enoxaparin Sodium (Lovenox) 30 mg SUBCUT Q24H AP Furosemide (Lasix) 80 mg IVPUSH NOW ONE Stop: 08/16/19 14:01 Ondansetron HCl (Zofran Odt) 4 mg PO Q4H PRN PRN Reason: nausea, able to take PO Sodium Chloride (Saline Flush) 10 ml FLUSH ASDIRECTED PRN PRN Reason: Keep Vein Open Sodium Chloride (Saline Flush) 10 ml FLUSH ASDIRECTED PRN PRN Reason: Keep Vein Open Assessment/Plan Comment:: 1. Admit to inpatient. 2. He is a DNR/DNI at the custod[facility]. He states that this time he does not want a ventilator but he would like CPR and to be shocked. To be a full code with no ventilation. 3. Lactic acid is elevated but his vital signs stable he's afebrile. Does not meet criteria for sepsis but I will repeat the lactic acid. 4. Restart Coumadin 2.5 mg a day daily INRs. 5. Low sodium diabetic diet twice a day 6. Daily weights, I's and O's. 7. Cohen placed for aggressive diuresis. 8. 80 mg IV Lasix given this morning and will repeat it this afternoon 1. 9. After the pharmacy reviews the medications will go through med reconciliation. 10. Up with assist. 11. Tylenol 3 one by mouth every 6 hours when necessary for pain for his humerus. - Mortality Measure Prognosis:: Good
[2019-08-16] MEDS: Enoxaparin 30 MG/0.3 ML Syringe SUBCUT SCH (11:00)
[2019-08-16] MEDS ORDERED: Nitroglycerin 0.4 MG Tab.SL SL PRN (12:55)
[2019-08-16] MEDS ORDERED: Oxymetazoline 0.05% Nasal Spray 15 ML Bottle NAS PRN (12:55)
[2019-08-16] MEDS ORDERED: Warfarin Sliding Scale PO SCH (13:00)
[2019-08-16] MEDS ORDERED: Aluminum Hydroxide/Magnesium Hydroxide Susp 30 ML Cup PO PRN (13:34)
[2019-08-16] MEDS: Acetaminophen 325 MG Tab PO PRN (15:25)
[2019-08-16] MEDS ORDERED: Isosorbide Dinitrate 10 MG Tab PO SCH (16:00)
[2019-08-16] MEDS ORDERED: Warfarin 2.5 MG Tab PO SCH ×2 (16:00)
[2019-08-16] MEDS: Isosorbide Dinitrate 20 MG Tab PO SCH (16:04)
[2019-08-16] MEDS: glipiZIDE 5 MG Tab.ER PO SCH (17:42)
[2019-08-16] MEDS ORDERED: glipiZIDE 10 MG Tab.ER PO SCH (18:00)
[2019-08-16] MEDS: Famotidine 20 MG Tab PO SCH (21:01)
[2019-08-16] MEDS: Amiodarone 200 MG Tab PO SCH (21:01)
[2019-08-16] MEDS: Carvedilol 6.25 MG Tab PO SCH (21:01)
[2019-08-16] MEDS: Tamsulosin 0.4 MG Cap.ER PO SCH (21:02)
[2019-08-16] MEDS: Acetaminophen 500 MG Tab PO SCH (21:02)
[2019-08-16] MEDS: Ferrous Sulfate 325 MG Tab PO SCH (21:02)
[2019-08-16] MEDS: Cefepime 2 GM Vial IVPUSH SCH (21:09)
[2019-08-16] MEDS: Sodium Chloride 0.9% 10 ML Syringe FLUSH PRN (21:37)
[2019-08-17] MEDS: guaiFENesin/Dextromethorphan 100-10 MG/5 ML Soln 5 ML Cup PO PRN ×2 (00:45→20:30)
[2019-08-17] MEDS: Acetaminophen 325 MG Tab PO PRN ×3 (03:47→16:22)
[2019-08-17] MEDS ORDERED: Potassium Chloride 10 MEQ Tab.ER PO SCH (09:00)
[2019-08-17] MEDS: glipiZIDE 5 MG Tab.ER PO SCH (09:08)
[2019-08-17] MEDS: Sodium Chloride 0.9% 10 ML Syringe FLUSH PRN ×2 (09:10→20:19)
[2019-08-17] MEDS: Cefepime 2 GM Vial IVPUSH SCH ×2 (09:10→20:10)
[2019-08-17] MEDS: Isosorbide Dinitrate 10 MG Tab PO SCH ×2 (09:33→16:26)
[2019-08-17] MEDS: Acetaminophen 500 MG Tab PO SCH ×2 (09:36→20:07)
[2019-08-17] MEDS: Isosorbide Dinitrate 20 MG Tab PO SCH (09:55)
[2019-08-17] MEDS: Potassium Chloride 20 MEQ Tab.ER PO SCH (10:03)
--- NOTE | 2019-08-17 10:03 | PCM.PN ---
- General Info Date of Service: 08/17/19 Admission Dx/Problem (Free Text): Patient states he feels better today. His leg swelling is down. He denies shortness of breath. He does not like lying in a bed because he says he coughs at night and needs to lean over. He denies chest pain, cough, fevers, chills today. - Patient Data Vitals - Most Recent: Last Vital Signs Temp 97.9 F 08/17/19 08:00 Pulse 73 08/17/19 08:00 Resp 18 08/17/19 08:00 BP 128/60 08/17/19 09:33 Pulse Ox 95 08/17/19 08:00 Weight - Most Recent: 210 lb 3.2 oz I&O - Last 24 Hours: Intake & Output 08/16/19 08/17/19 08/17/19 22:59 06:59 14:59 Intake Total 1320 240 Output Total 1950 325 Balance -630 -85 Lab Results Last 24 Hours: Laboratory Results - last 24 hr 08/16/19 08/16/19 08/17/19 Range/Units 10:45 17:41 06:40 WBC 14.5 H (4.5-12.0) X10-3/uL RBC 4.12 L (4.30-5.75) x10(6)uL Hgb 10.6 L (13.5-17.8) g/dL Hct 33.5 (30.0-51.3) % MCV 81.3 (80-96) fL MCH 25.8 L (27.7-33.6) pg MCHC 31.7 L (32.2-35.4) g/dL RDW 22.7 H (11.5-15.5) % Plt Count 327 (125-369) X10(3)uL MPV 7.9 (7.4-10.4) fL Neut % (Auto) 78.5 (46-82) % Lymph % (Auto) 6.7 L (13-37) % Bartholomew % (Auto) 12.8 H (4-12) % Eos % (Auto) 2 (1.0-5.0) % Baso % (Auto) 1 (0-2) % Neut # (Auto) 11.3 H (1.6-8.3) # Lymph # (Auto) 1.0 (0.6-5.0) # Bartholomew # (Auto) 1.9 H (0.0-1.3) # Eos # (Auto) 0.2 (0.0-0.8) # Baso # (Auto) 0.1 (0.0-0.2) # PT (9.0-11.1) sec INR (1.00-1.24) Sodium (135-145) mmol/L Potassium (3.5-5.3) mmol/L Chloride (100-110) mmol/L Carbon Dioxide (21-32) mmol/L BUN (7-18) mg/dL Creatinine (0.70-1.30) mg/dL Est Cr Clr Drug Dosing mL/min Estimated GFR (MDRD) (>60) BUN/Creatinine Ratio (9-20) Glucose (80-116) mg/dL POC Glucose 194 H (80-116) mg/dL Lactic Acid 2.5 H* (0.4-2.0) mmol/L Calcium (8.6-10.2) mg/dL Total Bilirubin (0.1-1.3) mg/dL AST (5-25) IU/L ALT (12-36) U/L Alkaline Phosphatase (56-112) IU/L Total Protein (6.0-8.0) g/dL Albumin (3.2-4.6) g/dL Globulin g/dL Albumin/Globulin Ratio 08/17/19 08/17/19 Range/Units 06:40 06:40 WBC (4.5-12.0) X10-3/uL RBC (4.30-5.75) x10(6)uL Hgb (13.5-17.8) g/dL Hct (30.0-51.3) % MCV (80-96) fL MCH (27.7-33.6) pg MCHC (32.2-35.4) g/dL RDW (11.5-15.5) % Plt Count (125-369) X10(3)uL MPV (7.4-10.4) fL Neut % (Auto) (46-82) % Lymph % (Auto) (13-37) % Bartholomew % (Auto) (4-12) % Eos % (Auto) (1.0-5.0) % Baso % (Auto) (0-2) % Neut # (Auto) (1.6-8.3) # Lymph # (Auto) (0.6-5.0) # Bartholomew # (Auto) (0.0-1.3) # Eos # (Auto) (0.0-0.8) # Baso # (Auto) (0.0-0.2) # PT 14.3 H (9.0-11.1) sec INR 1.48 H (1.00-1.24) Sodium 146 H (135-145) mmol/L Potassium 4.2 (3.5-5.3) mmol/L Chloride 106 (100-110) mmol/L Carbon Dioxide 37 H (21-32) mmol/L BUN 24 H (7-18) mg/dL Creatinine 1.7 H (0.70-1.30) mg/dL Est Cr Clr Drug Dosing 26.60 mL/min Estimated GFR (MDRD) 38 L (>60) BUN/Creatinine Ratio 14.1 (9-20) Glucose 87 (80-116) mg/dL POC Glucose (80-116) mg/dL Lactic Acid (0.4-2.0) mmol/L Calcium 7.8 L (8.6-10.2) mg/dL Total Bilirubin 0.6 (0.1-1.3) mg/dL AST 26 H D (5-25) IU/L ALT 60 H D (12-36) U/L Alkaline Phosphatase 214 H (56-112) IU/L Total Protein 5.5 L (6.0-8.0) g/dL Albumin 1.9 L (3.2-4.6) g/dL Globulin 3.6 g/dL Albumin/Globulin Ratio 0.5 Raymundo Results Last 24 Hours: Microbiology 08/16/19 07:35 Aerobic Blood Culture - Preliminary Blood - Venous - Lab Draw NO GROWTH AFTER 1 DAY Anaerobic Blood Culture - Preliminary NO GROWTH AFTER 1 DAY 08/16/19 07:30 Aerobic Blood Culture - Preliminary Blood - Venous NO GROWTH AFTER 1 DAY Anaerobic Blood Culture - Preliminary NO GROWTH AFTER 1 DAY 08/16/19 07:39 Influenza Type A Antigen Screen - Final Nasopharyngeal Swab NEGATIVE INFLUENZA A VIRUS AG REFERENCE RANGE: NEGATIVE Influenza Type B Antigen Screen - Final NEGATIVE INFLUENZA B VIRUS AG REFERENCE RANGE: NEGATIVE Med Orders - Current: Current Medications Acetaminophen (Tylenol) 650 mg PO Q4H PRN PRN Reason: Pain/Fever Last Admin: 08/17/19 08:10 Dose: 650 mg Acetaminophen (Tylenol Extra Strength) 1,000 mg PO BID [facility] Last Admin: 08/17/19 09:36 Dose: Not Given Al Hydroxide/Mg Hydroxide (Mag-Al Susp) 30 ml PO BID PRN PRN Reason: indigestion Amiodarone HCl (Cordarone) 200 mg PO BEDTIME [facility] Last Admin: 08/16/19 21:01 Dose: 200 mg Carvedilol (Coreg) 6.25 mg PO BEDTIME [facility] Last Admin: 08/16/19 21:01 Dose: 6.25 mg Cefepime HCl (Maxipime) 2 gm IVPUSH Q12H [facility] Last Admin: 08/17/19 09:10 Dose: 2 gm Enoxaparin Sodium (Lovenox) 30 mg SUBCUT Q24H [facility] Last Admin: 08/16/19 11:00 Dose: 30 mg Famotidine (Pepcid) 20 mg PO BEDTIME [facility] Last Admin: 08/16/19 21:01 Dose: 20 mg Ferrous Sulfate (Ferrous Sulfate) 325 mg PO BEDTIME [facility] Last Admin: 08/16/19 21:02 Dose: 325 mg Furosemide (Lasix) 80 mg PO DAILY [facility] Glipizide (Glucotrol) 10 mg PO BIDMEALS [facility] Last Admin: 08/17/19 09:06 Dose: 10 mg Glipizide (Glucotrol) 10 mg PO BIDMEALS [facility] Guaifenesin/Phenylephrine HCl (Robitussin Dm) 5 ml PO Q4H PRN PRN Reason: Cough Last Admin: 08/17/19 00:45 Dose: 5 ml Isosorbide Dinitrate (Isordil) 10 mg PO BID@0900,1600 [facility] Last Admin: 08/17/19 09:33 Dose: 10 mg Nitroglycerin (Nitrostat) 0.4 mg SL Q5M PRN PRN Reason: Chest Pain Ondansetron HCl (Zofran Odt) 4 mg PO Q4H PRN PRN Reason: nausea, able to take PO Oxymetazoline HCl (Afrin Original 0.05% Nasal [place]) 0 ml BERYL ASDIRECTED PRN PRN Reason: Nosebleed Last Admin: 08/17/19 09:18 Dose: 1 spray Pharmacy Consult (Consult To Pharmacy) 1 each .XX ASDIRECTED AP Potassium Chloride (Klor-Con M20) 20 meq PO DAILY AP Sodium Chloride (Saline Flush) 10 ml FLUSH ASDIRECTED PRN PRN Reason: Keep Vein Open Last Admin: 08/17/19 09:10 Dose: 10 ml Sodium Chloride (Saline Flush) 10 ml FLUSH ASDIRECTED PRN PRN Reason: Keep Vein Open Last Admin: 08/16/19 14:15 Dose: 10 ml Tamsulosin HCl (Flomax) 0.4 mg PO BEDTIME AP Last Admin: 08/16/19 21:02 Dose: 0.4 mg Discontinued Medications Acetaminophen/Codeine Phosphate (Tylenol With Codeine No.3 300mg/30mg) 1 tab PO Q6H PRN PRN Reason: Pain Last Admin: 08/16/19 11:00 Dose: 1 tab Albuterol (Proventil Neb Soln) 2.5 mg NEB ONETIME ONE Stop: 08/16/19 07:22 Last Admin: 08/16/19 07:42 Dose: 2.5 mg Cefepime HCl (Maxipime) 2 gm IVPUSH ONETIME ONE Stop: 08/16/19 08:22 Last Admin: 08/16/19 09:35 Dose: 2 gm Furosemide (Lasix) 80 mg IVPUSH NOW ONE Stop: 08/16/19 07:22 Last Admin: 08/16/19 09:11 Dose: 80 mg Furosemide (Lasix) 80 mg IVPUSH NOW ONE Stop: 08/16/19 14:01 Last Admin: 08/16/19 14:06 Dose: 80 mg Glipizide (Glucotrol Xl) 10 mg PO BIDMEALS AP Glipizide (Glucotrol Xl) 10 mg PO BIDMEALS AP Last Admin: 08/17/19 09:08 Dose: Not Given Isosorbide Dinitrate (Isordil) 10 mg PO BID@,16 AP Isosorbide Dinitrate (Isordil) 10 mg PO BID@09,16 AP Last Admin: 08/17/19 09:55 Dose: Not Given Lidocaine HCl (Glydo) 6 ml .XX ONETIME ONE Stop: 08/16/19 07:29 Last Admin: 08/16/19 08:02 Dose: 6 ml Potassium Chloride (Klor-Con 10) 20 meq PO DAILY [facility] Warfarin Sodium (Coumadin) 2.5 mg PO DAILY@1600 [facility] Warfarin Sodium (Coumadin) 2.5 mg PO DAILY@1600 [facility] Last Admin: 08/16/19 15:25 Dose: 2.5 mg Warfarin Sodium (Coumadin Sliding Scale) 1 each PO ASDIRECTED [facility] - Exam General: Alert, Oriented, Cooperative Lungs: Clear to Auscultation, Crackles Cardiovascular: Regular Rate, No Murmurs, Irregular Rhythm Extremities: Pedal Edema (Improved) Sepsis Event Note - Evaluation Sepsis Screening Result: No Definite Risk - Focused Exam Vital Signs: Vital Signs Temp Pulse Resp BP BP Pulse Ox Pulse Ox 08/17/19 09:33 128/60 08/17/19 08:00 97.9 F 73 18 128/60 95 08/17/19 04:00 98.1 F 62 18 133/65 97 08/17/19 00:00 98.4 F 73 18 123/68 96 96 Date Exam was Performed: 08/17/19 Time Exam was Performed: 09:59 - Problem List & Annotations (1) Humerus fracture SNOMED Code(s): 31541630 Code(s): S42.309A - UNSP FRACTURE OF SHAFT OF HUMERUS, UNSP ARM, INIT Status: Acute Current Visit: Yes (2) Acute exacerbation of CHF (congestive heart failure) SNOMED Code(s): 638762908, 90387174162989 Code(s): I50.9 - HEART FAILURE, UNSPECIFIED Status: Acute Current Visit: Yes Qualifiers: Heart failure type: unspecified Qualified Code(s): I50.9 - Heart failure, unspecified (3) Elevated lactic acid level SNOMED Code(s): 8725731 Code(s): R79.89 - OTHER SPECIFIED ABNORMAL FINDINGS OF BLOOD CHEMISTRY Status: Acute Current Visit: Yes (4) Pneumonia SNOMED Code(s): 531163645 Code(s): J18.9 - PNEUMONIA, UNSPECIFIED ORGANISM Status: Acute Current Visit: Yes Qualifiers: Pneumonia type: due to unspecified organism Laterality: right Lung location: lower lobe of lung Qualified Code(s): J18.9 - Pneumonia, unspecified organism (5) Anticoagulant long-term use SNOMED Code(s): 478708338 Code(s): Z79.01 - FDC (CURRENT) USE OF ANTICOAGULANTS Status: Acute Current Visit: No (6) Diabetes type 2, controlled SNOMED Code(s): 20530245, 236313696 Code(s): E11.9 - TYPE 2 DIABETES MELLITUS WITHOUT COMPLICATIONS Status: Acute Current Visit: No (7) Hypokalemia SNOMED Code(s): 18525955 Code(s): E87.6 - HYPOKALEMIA Status: Acute Current Visit: No (8) Obesity SNOMED Code(s): 364073854, 768333948 Code(s): E66.9 - OBESITY, UNSPECIFIED Status: Acute Current Visit: No Qualifiers: Obesity type: due to excess calories (9) Palliative care status SNOMED Code(s): 983946058 Code(s): Z51.5 - ENCOUNTER FOR PALLIATIVE CARE Status: Acute Current Visit: No (10) Atrial fibrillation SNOMED Code(s): 99198962 Code(s): I48.91 - UNSPECIFIED ATRIAL FIBRILLATION Status: Chronic Priority: Low Current Visit: No Qualifiers: Atrial fibrillation type: chronic - Problem List Review Problem List Initiated/Reviewed/Updated: Yes - My Orders Last 24 Hours: My Active Orders 08/16/19 10:28 Oxygen Therapy [RC] PRN Up to Chair [RC] ASDIRECTED VTE/DVT Education [RC] Per Unit Routine Vital Signs [RC] 04,08,12,16,20,00 OT Evaluation and Treatment [CONS] Routine PT Evaluation and Treatment [CONS] Routine Ondansetron [Zofran ODT] 4 mg PO Q4H PRN Sodium Chloride 0.9% [Saline Flush] 10 ml FLUSH ASDIRECTED PRN Peripheral IV Insertion Adult [OM.PC] Routine Resuscitation Status Routine 08/16/19 10:29 Sequential Compression Device [OM.PC] Per Unit Routine 08/16/19 10:30 Enoxaparin [Lovenox] 30 mg SUBCUT Q24H 08/16/19 10:36 Daily Weight [Height and Weight] [RC] 06 08/16/19 10:42 Accu Check [Blood Glucose Check, Bedside] [RC] BIDMEALS 08/16/19 12:55 Acetaminophen [Tylenol] 650 mg PO Q4H PRN Nitroglycerin [Nitrostat] 0.4 mg SL Q5M PRN Oxymetazoline [Afrin Original 0.05% Nasal [place]] 0 ml BERYL ASDIRECTED PRN 08/16/19 13:34 Alum Hydroxide/Mag Hydroxide [Mag-Al Susp] 30 ml PO BID PRN 08/16/19 21:00 Acetaminophen [Tylenol Extra Strength] 1,000 mg PO BID Amiodarone [Cordarone] 200 mg PO BEDTIME Cefepime [Maxipime] 2 gm IVPUSH Q12H Famotidine [Pepcid] 20 mg PO BEDTIME Ferrous Sulfate 325 mg PO BEDTIME Tamsulosin [Flomax] 0.4 mg PO BEDTIME carvediloL [Coreg] 6.25 mg PO BEDTIME 08/16/19 21:15 Pharmacy Consult [Consult to Pharmacy] 1 each .XX ASDIRECTED 08/16/19 Lunch 2 Gram Sodium Diet [DIET] 08/17/19 00:24 Dextromethorphan/guaiFENesin [Robitussin DM] 5 ml PO Q4H PRN 08/17/19 08:00 glipiZIDE [Glucotrol] 10 mg PO BIDMEALS 08/17/19 09:00 Isosorbide Dinitrate [Isordil] 10 mg PO BID@0900,1600 Potassium Chloride [Klor-Con M20] 20 meq PO DAILY 08/17/19 09:18 Consult to Orthopedics [CONS] Routine 08/17/19 09:19 Notify Provider Consults [RC] ASDIRECTED 08/17/19 18:00 glipiZIDE [Glucotrol] 10 mg PO BIDMEALS 08/17/19 Breakfast Consistent Carbohydrate Diet [DIET] 08/18/19 06:00 INR,PT,PROTHROMBIN TIME [COAG] DAILY 08/18/19 09:00 Furosemide [Lasix] 80 mg PO DAILY 08/19/19 06:00 INR,PT,PROTHROMBIN TIME [COAG] DAILY 08/20/19 06:00 INR,PT,PROTHROMBIN TIME [COAG] DAILY 08/21/19 06:00 INR,PT,PROTHROMBIN TIME [COAG] DAILY - Plan Plan:: 1. DC catheter and straight catheter every 6 hours when necessary 2. Stop IV Lasix and start is 80 mg once a day. Now on a low sodium diet with his diabetic diet and will see if he gains weight. 3. Continue the IV antibiotics for his hospital-acquired pneumonia. 4. Anticipate discharge tomorrow or the next day
[2019-08-17] MEDS ORDERED: Furosemide 40 MG Tab PO SCH (10:10)
[2019-08-17] MEDS: Furosemide 80 MG Tab PO SCH (11:09)
[2019-08-17] MEDS: Enoxaparin 30 MG/0.3 ML Syringe SUBCUT SCH (11:09)
--- NOTE | 2019-08-17 13:24 | PCM.CONSN ---
- General Info Date of Service: 08/17/19 (regarding right humerus fracture) Functional Status: Reports: Pain Controlled - Review of Systems General: Reports: Weakness Musculoskeletal: Reports: Arm Pain Skin: Reports: Other (edema to all extremities and torso) - Patient Data Vitals - Most Recent: Last Vital Signs Temp 36.6 C 08/17/19 08:00 Pulse 73 08/17/19 08:00 Resp 18 08/17/19 08:00 BP 128/60 08/17/19 09:33 Pulse Ox 95 08/17/19 08:00 Weight - Most Recent: 95.345 kg I&O - Last 24 Hours: Intake & Output 08/16/19 08/17/19 08/17/19 22:59 06:59 14:59 Intake Total 1320 240 Output Total 9669 325 Balance -630 -85 Lab Results Last 24 Hours: Laboratory Results - last 24 hr 08/16/19 08/17/19 08/17/19 Range/Units 17:41 06:40 06:40 WBC 14.5 H (4.5-12.0) X10-3/uL RBC 4.12 L (4.30-5.75) x10(6)uL Hgb 10.6 L (13.5-17.8) g/dL Hct 33.5 (30.0-51.3) % MCV 81.3 (80-96) fL MCH 25.8 L (27.7-33.6) pg MCHC 31.7 L (32.2-35.4) g/dL RDW 22.7 H (11.5-15.5) % Plt Count 327 (125-369) X10(3)uL MPV 7.9 (7.4-10.4) fL Neut % (Auto) 78.5 (46-82) % Lymph % (Auto) 6.7 L (13-37) % Sebastian % (Auto) 12.8 H (4-12) % Eos % (Auto) 2 (1.0-5.0) % Baso % (Auto) 1 (0-2) % Neut # (Auto) 11.3 H (1.6-8.3) # Lymph # (Auto) 1.0 (0.6-5.0) # Sebastian # (Auto) 1.9 H (0.0-1.3) # Eos # (Auto) 0.2 (0.0-0.8) # Baso # (Auto) 0.1 (0.0-0.2) # PT (9.0-11.1) sec INR (1.00-1.24) Sodium 146 H (135-145) mmol/L Potassium 4.2 (3.5-5.3) mmol/L Chloride 106 (100-110) mmol/L Carbon Dioxide 37 H (21-32) mmol/L BUN 24 H (7-18) mg/dL Creatinine 1.7 H (0.70-1.30) mg/dL Est Cr Clr Drug Dosing 26.60 mL/min Estimated GFR (MDRD) 38 L (>60) BUN/Creatinine Ratio 14.1 (9-20) Glucose 87 (80-116) mg/dL POC Glucose 194 H (80-116) mg/dL Calcium 7.8 L (8.6-10.2) mg/dL Total Bilirubin 0.6 (0.1-1.3) mg/dL AST 26 H D (5-25) IU/L ALT 60 H D (12-36) U/L Alkaline Phosphatase 214 H (56-112) IU/L Total Protein 5.5 L (6.0-8.0) g/dL Albumin 1.9 L (3.2-4.6) g/dL Globulin 3.6 g/dL Albumin/Globulin Ratio 0.5 /24/20 Range/Units 06:40 WBC (4.5-12.0) X10-3/uL RBC (4.30-5.75) x10(6)uL Hgb (13.5-17.8) g/dL Hct (30.0-51.3) % MCV (80-96) fL MCH (27.7-33.6) pg MCHC (32.2-35.4) g/dL RDW (11.5-15.5) % Plt Count (125-369) X10(3)uL MPV (7.4-10.4) fL Neut % (Auto) (46-82) % Lymph % (Auto) (13-37) % Sebastian % (Auto) (4-12) % Eos % (Auto) (1.0-5.0) % Baso % (Auto) (0-2) % Neut # (Auto) (1.6-8.3) # Lymph # (Auto) (0.6-5.0) # Sebastian # (Auto) (0.0-1.3) # Eos # (Auto) (0.0-0.8) # Baso # (Auto) (0.0-0.2) # PT 14.3 H (9.0-11.1) sec INR 1.48 H (1.00-1.24) Sodium (135-145) mmol/L Potassium (3.5-5.3) mmol/L Chloride (100-110) mmol/L Carbon Dioxide (21-32) mmol/L BUN (7-18) mg/dL Creatinine (0.70-1.30) mg/dL Est Cr Clr Drug Dosing mL/min Estimated GFR (MDRD) (>60) BUN/Creatinine Ratio (9-20) Glucose (80-116) mg/dL POC Glucose (80-116) mg/dL Calcium (8.6-10.2) mg/dL Total Bilirubin (0.1-1.3) mg/dL AST (5-25) IU/L ALT (12-36) U/L Alkaline Phosphatase (56-112) IU/L Total Protein (6.0-8.0) g/dL Albumin (3.2-4.6) g/dL Globulin g/dL Albumin/Globulin Ratio Raymundo Results Last 24 Hours: Microbiology 08/16/19 07:35 Aerobic Blood Culture - Preliminary Blood - Venous - Lab Draw NO GROWTH AFTER 1 DAY Anaerobic Blood Culture - Preliminary NO GROWTH AFTER 1 DAY 08/16/19 07:30 Aerobic Blood Culture - Preliminary Blood - Venous NO GROWTH AFTER 1 DAY Anaerobic Blood Culture - Preliminary NO GROWTH AFTER 1 DAY 08/16/19 07:39 Influenza Type A Antigen Screen - Final Nasopharyngeal Swab NEGATIVE INFLUENZA A VIRUS AG REFERENCE RANGE: NEGATIVE Influenza Type B Antigen Screen - Final NEGATIVE INFLUENZA B VIRUS AG REFERENCE RANGE: NEGATIVE Med Orders - Current: Current Medications Acetaminophen (Tylenol) 650 mg PO Q4H PRN PRN Reason: Pain/Fever Last Admin: 08/17/19 08:10 Dose: 650 mg Acetaminophen (Tylenol Extra Strength) 1,000 mg PO BID AP Last Admin: 08/17/19 09:36 Dose: Not Given Al Hydroxide/Mg Hydroxide (Mag-Al Susp) 30 ml PO BID PRN PRN Reason: indigestion Amiodarone HCl (Cordarone) 200 mg PO BEDTIME [facility] Last Admin: 08/16/19 21:01 Dose: 200 mg Carvedilol (Coreg) 6.25 mg PO BEDTIME [facility] Last Admin: 08/16/19 21:01 Dose: 6.25 mg Cefepime HCl (Maxipime) 2 gm IVPUSH Q12H [facility] Last Admin: 08/17/19 09:10 Dose: 2 gm Enoxaparin Sodium (Lovenox) 30 mg SUBCUT Q24H [facility] Last Admin: 08/17/19 11:09 Dose: 30 mg Famotidine (Pepcid) 20 mg PO BEDTIME [facility] Last Admin: 08/16/19 21:01 Dose: 20 mg Ferrous Sulfate (Ferrous Sulfate) 325 mg PO BEDTIME [facility] Last Admin: 08/16/19 21:02 Dose: 325 mg Furosemide (Lasix) 80 mg PO DAILY [facility] Last Admin: 08/17/19 11:09 Dose: 80 mg Glipizide (Glucotrol) 10 mg PO BIDMEALS [facility] Last Admin: 08/17/19 09:06 Dose: 10 mg Guaifenesin/Phenylephrine HCl (Robitussin Dm) 5 ml PO Q4H PRN PRN Reason: Cough Last Admin: 08/17/19 00:45 Dose: 5 ml Isosorbide Dinitrate (Isordil) 10 mg PO BID@0900,1600 [facility] Last Admin: 08/17/19 09:33 Dose: 10 mg Nitroglycerin (Nitrostat) 0.4 mg SL Q5M PRN PRN Reason: Chest Pain Ondansetron HCl (Zofran Odt) 4 mg PO Q4H PRN PRN Reason: nausea, able to take PO Oxymetazoline HCl (Afrin Original 0.05% Nasal [place]) 0 ml BERYL ASDIRECTED PRN PRN Reason: Nosebleed Last Admin: 08/17/19 09:18 Dose: 1 spray Pharmacy Consult (Consult To Pharmacy) 1 each .XX ASDIRECTED [facility] Potassium Chloride (Klor-Con M20) 20 meq PO DAILY [facility] Last Admin: 08/17/19 10:03 Dose: 20 meq Sodium Chloride (Saline Flush) 10 ml FLUSH ASDIRECTED PRN PRN Reason: Keep Vein Open Last Admin: 08/17/19 09:10 Dose: 10 ml Sodium Chloride (Saline Flush) 10 ml FLUSH ASDIRECTED PRN PRN Reason: Keep Vein Open Last Admin: 08/16/19 14:15 Dose: 10 ml Tamsulosin HCl (Flomax) 0.4 mg PO BEDTIME AP Last Admin: 08/16/19 21:02 Dose: 0.4 mg Warfarin Sodium (Coumadin) 5 mg PO 1600 AP Stop: 08/17/19 16:01 Discontinued Medications Acetaminophen/Codeine Phosphate (Tylenol With Codeine No.3 300mg/30mg) 1 tab PO Q6H PRN PRN Reason: Pain Last Admin: 08/16/19 11:00 Dose: 1 tab Albuterol (Proventil Neb Soln) 2.5 mg NEB ONETIME ONE Stop: 08/16/19 07:22 Last Admin: 08/16/19 07:42 Dose: 2.5 mg Cefepime HCl (Maxipime) 2 gm IVPUSH ONETIME ONE Stop: 08/16/19 08:22 Last Admin: 08/16/19 09:35 Dose: 2 gm Furosemide (Lasix) 80 mg IVPUSH NOW ONE Stop: 08/16/19 07:22 Last Admin: 08/16/19 09:11 Dose: 80 mg Furosemide (Lasix) 80 mg IVPUSH NOW ONE Stop: 08/16/19 14:01 Last Admin: 08/16/19 14:06 Dose: 80 mg Glipizide (Glucotrol Xl) 10 mg PO BIDMEALS [facility] Glipizide (Glucotrol Xl) 10 mg PO BIDMEALS [facility] Last Admin: 08/17/19 09:08 Dose: Not Given Isosorbide Dinitrate (Isordil) 10 mg PO BID@,16 [facility] Isosorbide Dinitrate (Isordil) 10 mg PO BID@,16 [facility] Last Admin: 08/17/19 09:55 Dose: Not Given Lidocaine HCl (Glydo) 6 ml .XX ONETIME ONE Stop: 08/16/19 07:29 Last Admin: 08/16/19 08:02 Dose: 6 ml Potassium Chloride (Klor-Con 10) 20 meq PO DAILY [facility] Warfarin Sodium (Coumadin) 2.5 mg PO DAILY@1600 [facility] Warfarin Sodium (Coumadin) 2.5 mg PO DAILY@1600 AP Last Admin: 08/16/19 15:25 Dose: 2.5 mg Warfarin Sodium (Coumadin Sliding Scale) 1 each PO ASDIRECTED [facility] - Exam General: Alert, Oriented, Cooperative, No Acute Distress Lungs: Other (mildly labored breathing with no accessory muscle use; able to speak full sentences without running out of breath) Cardiovascular: Regular Rate, Regular Rhythm Extremities: Arm Pain, Limited Range of Motion (splinting of right upper extremity for mid-shaft humeral fracture held in place with ANNA wraps; able to flex and extend right elbow. Internal Wholesaler strength and movement in hand and wrist are good. ) Peripheral Pulses: 2+: Radial (L), Radial (R) Skin: Warm, Dry, Intact Neurological: Normal Speech, Sensation Intact (to right upper extremities throughout) Sepsis Event Note - Evaluation Sepsis Screening Result: No Definite Risk - Focused Exam Vital Signs: Vital Signs Temp Pulse Resp BP BP Pulse Ox 08/17/19 09:33 128/60 08/17/19 08:00 36.6 C 73 18 128/60 95 08/17/19 04:00 36.7 C 62 18 133/65 97 Date Exam was Performed: 08/18/19 Time Exam was Performed: 08:59 Consult PN Assessment/Plan Procedures: Procedures ANESTH LOW INTESTINE SCOPE (01/18/16) ASSAY OF CK (CPK) (07/09/15) ASSAY OF MAGNESIUM (07/21/19) ASSAY OF NATRIURETIC PEPTIDE (02/17/18) ASSAY OF PHOSPHORUS (08/06/15) ASSAY OF TROPONIN QUANT (07/21/19) ASSAY THYROID STIM HORMONE (08/15/15) BLOOD GASES ANY COMBINATION (09/07/17) BLOOD TRANSFUSION SERVICE (01/27/17) BLOOD TYPING SEROLOGIC ABO (07/28/17) BLOOD TYPING SEROLOGIC RH(D) (07/28/17) C-REACTIVE PROTEIN (07/21/19) CHEST X-RAY 1 VIEW FRONTAL (08/06/15) CHEST X-RAY 2VW FRONTAL&LATL (08/06/16) COMPLETE CBC AUTOMATED (08/26/15) COMPLETE CBC W/AUTO DIFF WBC (07/21/19) COMPREHEN METABOLIC PANEL (07/21/19) CREATINE MB FRACTION (07/09/15) CT HEAD/BRAIN W/O DYE (07/27/15) CT THORAX W/O DYE (07/21/19) DIAGNOSTIC COLONOSCOPY (01/18/16) EGD BIOPSY SINGLE/MULTIPLE (01/18/16) ELECTROCARDIOGRAM REPORT (06/13/19) ELECTROCARDIOGRAM TRACING (07/21/19) EMERGENCY DEPT VISIT (07/21/19) EMERGENCY DEPT VISIT (06/13/19) EMERGENCY DEPT VISIT (06/13/19) EMERGENCY DEPT VISIT (06/12/19) EMERGENCY DEPT VISIT (06/12/19) EMERGENCY DEPT VISIT (05/23/19) EMERGENCY DEPT VISIT (05/23/19) EMERGENCY DEPT VISIT (02/17/18) EMERGENCY DEPT VISIT (09/16/17) EMERGENCY DEPT VISIT (09/07/17) EMERGENCY DEPT VISIT (07/28/17) EMERGENCY DEPT VISIT (01/27/17) EMERGENCY DEPT VISIT (08/26/15) EMERGENCY DEPT VISIT (08/06/15) EMERGENCY DEPT VISIT (07/27/15) EMERGENCY DEPT VISIT (07/27/15) EMERGENCY DEPT VISIT (07/19/15) EMERGENCY DEPT VISIT (07/09/15) EMERGENCY DEPT VISIT (02/23/15) EMERGENCY DEPT VISIT (03/17/14) FIBRIN DEGRADATION QUANT (08/15/15) GLUCOSE BLOOD TEST (01/27/17) GLYCOSYLATED HEMOGLOBIN TEST (07/27/15) HEMATOCRIT (01/27/17) HEMOGLOBIN (01/27/17) HYDRATE IV INFUSION ADD-ON (01/27/17) IMMUNOHISTO ANTB 1ST STAIN (01/18/16) INFLUENZA ASSAY W/OPTIC (06/13/19) INITIAL OBSERVATION CARE (01/27/17) METABOLIC PANEL TOTAL CA (06/13/19) OBSERVATION CARE DISCHARGE (08/15/15) OCCULT BLD FECES 1-3 TESTS (01/27/17) OFFICE/OUTPATIENT VISIT EST (10/26/18) PROTHROMBIN TIME (07/21/19) RBC ANTIBODY SCREEN (07/28/17) ROUTINE VENIPUNCTURE (07/21/19) SUBSEQUENT OBSERVATION CARE (01/27/17) THER/PROPH/DIAG INJ IV PUSH (01/27/17) THROMBOPLASTIN TIME PARTIAL (08/06/15) TISSUE EXAM BY PATHOLOGIST (01/18/16) TTE W/DOPPLER COMPLETE (08/15/15) URINALYSIS AUTO W/SCOPE (06/12/19) X-RAY EXAM CHEST 1 VIEW (07/21/19) X-RAY EXAM UNILAT RIBS/CHEST (06/12/19) (1) Humerus fracture SNOMED Code(s): 23875212 Code(s): S42.309A - UNSP FRACTURE OF SHAFT OF HUMERUS, UNSP ARM, INIT Priority: Low Current Visit: Yes Qualifiers: Encounter type: subsequent encounter Humerus Location: shaft Fracture type: closed Fracture alignment: displaced Laterality: right Assessment:: Humerus fracture Problem List Initiated/Reviewed/Updated: Yes My Orders Last 24 Hours: My Active Orders 08/17/19 11:05 Humerus Rt [CR] Routine Plan: 1. Humerus fracture: fracture fragments appear stable from lateral view and frontal view alignment is improved from previous x-rays. Padding material replaced and skin checked today under splint, which looks good with no areas of rubbing or open areas. Splint rewrapped with ANNA wraps and CMS checks remained good afterward. Orthopedics will sign off at this time and patient may follow- up with Ortho in two weeks for repeat x-rays and recheck. 2. Pain well controlled regarding fracture with current medications, no changes or additions needed for pain control at this time.
--- NOTE | 2019-08-17 13:43 | CR ---
INDICATION: Followup humerus fracture. RIGHT HUMERUS: Frontal and lateral views of the right humerus, 08/17/19, were compared with 08/02/19, and revealed decreased angulation as visualized on the frontal view. On the lateral view, little change in position is noted with stable posterior angulation at the fracture site. Examination was obtained through a cast. [facility]
[2019-08-17] MEDS ORDERED: Warfarin 5 MG Tab PO SCH (16:00)
[2019-08-17] MEDS: Amiodarone 200 MG Tab PO SCH (20:06)
[2019-08-17] MEDS: Carvedilol 6.25 MG Tab PO SCH (20:06)
[2019-08-17] MEDS: Ferrous Sulfate 325 MG Tab PO SCH (20:06)
[2019-08-17] MEDS: Tamsulosin 0.4 MG Cap.ER PO SCH (20:07)
[2019-08-17] MEDS: Famotidine 20 MG Tab PO SCH (20:07)
[2019-08-18] MEDS: Acetaminophen 325 MG Tab PO PRN ×2 (01:17→05:51)
[2019-08-18] MEDS: guaiFENesin/Dextromethorphan 100-10 MG/5 ML Soln 5 ML Cup PO PRN (01:18)
[2019-08-18] MEDS: Isosorbide Dinitrate 10 MG Tab PO SCH (08:26)
[2019-08-18] MEDS: Potassium Chloride 20 MEQ Tab.ER PO SCH (08:29)
[2019-08-18] MEDS: Acetaminophen 500 MG Tab PO SCH (08:30)
[2019-08-18] MEDS: Furosemide 80 MG Tab PO SCH (08:30)
[2019-08-18] MEDS: Cefepime 2 GM Vial IVPUSH SCH (08:32)
[2019-08-18 08:38] VITALS: BP 123/65
--- NOTE | 2019-08-18 09:06 | PCM.PN ---
- General Info Date of Service: 08/18/19 Admission Dx/Problem (Free Text): Patient states he coughed a lot last night. He normally likes to sleep in his recliner and that helps him. He denies fevers, chills or little bit of sweating. He denies shortness of breath. He says his leg swelling is improved and he has no chest pain or the nurses report on his left arm there is either bruised or start him cellulitis. It's not painful and there is no warmness according to the patient. - Patient Data Vitals - Most Recent: Last Vital Signs Temp 98.4 F 08/18/19 05:45 Pulse 63 08/18/19 05:45 Resp 18 08/18/19 05:45 BP 123/65 08/18/19 08:26 Pulse Ox 98 08/18/19 05:45 Weight - Most Recent: 210 lb 3.2 oz I&O - Last 24 Hours: Intake & Output 08/17/19 08/18/19 08/18/19 22:59 06:59 14:59 Intake Total 970 150 Output Total 1700 225 Balance -730 -75 Lab Results Last 24 Hours: Laboratory Results - last 24 hr 08/17/19 08/18/19 08/18/19 Range/Units 17:32 06:18 07:53 PT 16.3 H (9.0-11.1) sec INR 1.69 H (1.00-1.24) POC Glucose 119 H 71 L (80-116) mg/dL Raymundo Results Last 24 Hours: Microbiology 08/16/19 07:35 Aerobic Blood Culture - Preliminary Blood - Venous - Lab Draw NO GROWTH AFTER 2 DAYS Anaerobic Blood Culture - Preliminary NO GROWTH AFTER 2 DAYS 08/16/19 07:30 Aerobic Blood Culture - Preliminary Blood - Venous NO GROWTH AFTER 2 DAYS Anaerobic Blood Culture - Preliminary NO GROWTH AFTER 2 DAYS Med Orders - Current: Current Medications Acetaminophen (Tylenol) 650 mg PO Q4H PRN PRN Reason: Pain/Fever Last Admin: 08/18/19 05:51 Dose: 650 mg Acetaminophen (Tylenol Extra Strength) 1,000 mg PO BID AP Last Admin: 08/18/19 08:30 Dose: 1,000 mg Al Hydroxide/Mg Hydroxide (Mag-Al Susp) 30 ml PO BID PRN PRN Reason: indigestion Amiodarone HCl (Cordarone) 200 mg PO BEDTIME [facility] Last Admin: 08/17/19 20:06 Dose: 200 mg Carvedilol (Coreg) 6.25 mg PO BEDTIME [facility] Last Admin: 08/17/19 20:06 Dose: 6.25 mg Cefepime HCl (Maxipime) 2 gm IVPUSH Q12H [facility] Last Admin: 08/18/19 08:32 Dose: 2 gm Enoxaparin Sodium (Lovenox) 30 mg SUBCUT Q24H [facility] Last Admin: 08/17/19 11:09 Dose: 30 mg Famotidine (Pepcid) 20 mg PO BEDTIME [facility] Last Admin: 08/17/19 20:07 Dose: 20 mg Ferrous Sulfate (Ferrous Sulfate) 325 mg PO BEDTIME [facility] Last Admin: 08/17/19 20:06 Dose: 325 mg Furosemide (Lasix) 80 mg PO DAILY [facility] Last Admin: 08/18/19 08:30 Dose: 80 mg Glipizide (Glucotrol) 10 mg PO BIDMEALS [facility] Last Admin: 08/18/19 08:26 Dose: 10 mg Guaifenesin/Phenylephrine HCl (Robitussin Dm) 5 ml PO Q4H PRN PRN Reason: Cough Last Admin: 08/18/19 01:18 Dose: 5 ml Isosorbide Dinitrate (Isordil) 10 mg PO BID@0900,1600 [facility] Last Admin: 08/18/19 08:26 Dose: 10 mg Nitroglycerin (Nitrostat) 0.4 mg SL Q5M PRN PRN Reason: Chest Pain Ondansetron HCl (Zofran Odt) 4 mg PO Q4H PRN PRN Reason: nausea, able to take PO Oxymetazoline HCl (Afrin Original 0.05% Nasal [place]) 0 ml BERYL ASDIRECTED PRN PRN Reason: Nosebleed Last Admin: 08/17/19 09:18 Dose: 1 spray Pharmacy Consult (Consult To Pharmacy) 1 each .XX ASDIRECTED [facility] Potassium Chloride (Klor-Con M20) 20 meq PO DAILY [facility] Last Admin: 08/18/19 08:29 Dose: 20 meq Sodium Chloride (Saline Flush) 10 ml FLUSH ASDIRECTED PRN PRN Reason: Keep Vein Open Last Admin: 08/17/19 20:19 Dose: 10 ml Sodium Chloride (Saline Flush) 10 ml FLUSH ASDIRECTED PRN PRN Reason: Keep Vein Open Last Admin: 08/16/19 14:15 Dose: 10 ml Tamsulosin HCl (Flomax) 0.4 mg PO BEDTIME [facility] Last Admin: 08/17/19 20:07 Dose: 0.4 mg Discontinued Medications Acetaminophen/Codeine Phosphate (Tylenol With Codeine No.3 300mg/30mg) 1 tab PO Q6H PRN PRN Reason: Pain Last Admin: 08/16/19 11:00 Dose: 1 tab Albuterol (Proventil Neb Soln) 2.5 mg NEB ONETIME ONE Stop: 08/16/19 07:22 Last Admin: 08/16/19 07:42 Dose: 2.5 mg Cefepime HCl (Maxipime) 2 gm IVPUSH ONETIME ONE Stop: 08/16/19 08:22 Last Admin: 08/16/19 09:35 Dose: 2 gm Furosemide (Lasix) 80 mg IVPUSH NOW ONE Stop: 08/16/19 07:22 Last Admin: 08/16/19 09:11 Dose: 80 mg Furosemide (Lasix) 80 mg IVPUSH NOW ONE Stop: 08/16/19 14:01 Last Admin: 08/16/19 14:06 Dose: 80 mg Glipizide (Glucotrol Xl) 10 mg PO BIDMEALS [facility] Glipizide (Glucotrol Xl) 10 mg PO BIDMEALS [facility] Last Admin: 08/17/19 09:08 Dose: Not Given Isosorbide Dinitrate (Isordil) 10 mg PO BID@,16 [facility] Isosorbide Dinitrate (Isordil) 10 mg PO BID@09,16 [facility] Last Admin: 08/17/19 09:55 Dose: Not Given Lidocaine HCl (Glydo) 6 ml .XX ONETIME ONE Stop: 08/16/19 07:29 Last Admin: 08/16/19 08:02 Dose: 6 ml Potassium Chloride (Klor-Con 10) 20 meq PO DAILY [facility] Warfarin Sodium (Coumadin) 2.5 mg PO DAILY@1600 [facility] Warfarin Sodium (Coumadin) 2.5 mg PO DAILY@1600 [facility] Last Admin: 08/16/19 15:25 Dose: 2.5 mg Warfarin Sodium (Coumadin Sliding Scale) 1 each PO ASDIRECTED [facility] Warfarin Sodium (Coumadin) 5 mg PO 1600 AP Stop: 08/17/19 16:01 Last Admin: 08/17/19 16:23 Dose: 5 mg - Exam General: Alert, Oriented Lungs: Clear to Auscultation, Normal Respiratory Effort. No: Crackles, Rales, Rhonchi Cardiovascular: Regular Rate, No Murmurs, Irregular Rhythm Extremities: Pedal Edema (Improved) Skin: Ecchymosis (Left arm just medial to the elbow. No signs of cellulitis) Psy/Mental Status: Alert, Normal Affect, Normal Mood Sepsis Event Note - Evaluation Sepsis Screening Result: No Definite Risk - Focused Exam Vital Signs: Vital Signs Temp Pulse Resp BP BP Pulse Ox 08/18/19 08:26 123/65 08/18/19 05:45 98.4 F 63 18 144/78 H 98 08/18/19 04:00 18 08/18/19 01:00 98.1 F 67 18 128/69 95 08/18/19 00:00 95 Date Exam was Performed: 08/18/19 Time Exam was Performed: 09:03 - Problem List & Annotations (1) Humerus fracture SNOMED Code(s): 52373850 Code(s): S42.309A - UNSP FRACTURE OF SHAFT OF HUMERUS, UNSP ARM, INIT Status: Acute Priority: Low Current Visit: Yes Qualifiers: Encounter type: subsequent encounter Humerus Location: shaft Fracture type: closed Fracture alignment: displaced Laterality: right (2) Acute exacerbation of CHF (congestive heart failure) SNOMED Code(s): 843609385, 09197041633177 Code(s): I50.9 - HEART FAILURE, UNSPECIFIED Status: Acute Current Visit: Yes Qualifiers: Heart failure type: unspecified Qualified Code(s): I50.9 - Heart failure, unspecified (3) Elevated lactic acid level SNOMED Code(s): 7955353 Code(s): R79.89 - OTHER SPECIFIED ABNORMAL FINDINGS OF BLOOD CHEMISTRY Status: Acute Current Visit: Yes (4) Pneumonia SNOMED Code(s): 921760075 Code(s): J18.9 - PNEUMONIA, UNSPECIFIED ORGANISM Status: Acute Current Visit: Yes Qualifiers: Pneumonia type: due to unspecified organism Laterality: right Lung location: lower lobe of lung Qualified Code(s): J18.9 - Pneumonia, unspecified organism (5) Anticoagulant long-term use SNOMED Code(s): 788213854 Code(s): Z79.01 - JAIL (CURRENT) USE OF ANTICOAGULANTS Status: Acute Current Visit: No (6) Diabetes type 2, controlled SNOMED Code(s): 34138167, 433356241 Code(s): E11.9 - TYPE 2 DIABETES MELLITUS WITHOUT COMPLICATIONS Status: Acute Current Visit: No (7) Hypokalemia SNOMED Code(s): 56095843 Code(s): E87.6 - HYPOKALEMIA Status: Acute Current Visit: No (8) Obesity SNOMED Code(s): 123301306, 662097127 Code(s): E66.9 - OBESITY, UNSPECIFIED Status: Acute Current Visit: No Qualifiers: Obesity type: due to excess calories (9) Palliative care status SNOMED Code(s): 885138717 Code(s): Z51.5 - ENCOUNTER FOR PALLIATIVE CARE Status: Acute Current Visit: No (10) Atrial fibrillation SNOMED Code(s): 39479676 Code(s): I48.91 - UNSPECIFIED ATRIAL FIBRILLATION Status: Chronic Priority: Low Current Visit: No Qualifiers: Atrial fibrillation type: chronic - Problem List Review Problem List Initiated/Reviewed/Updated: Yes - My Orders Last 24 Hours: My Active Orders 08/17/19 09:00 Isosorbide Dinitrate [Isordil] 10 mg PO BID@0900,1600 Potassium Chloride [Klor-Con M20] 20 meq PO DAILY 08/17/19 09:18 Consult to Orthopedics [CONS] Routine 08/17/19 09:19 Notify Provider Consults [RC] ASDIRECTED 08/17/19 10:20 Furosemide [Lasix] 80 mg PO DAILY 08/17/19 11:15 Insert Urinary Catheter [OM.PC] Timed 08/19/19 06:00 INR,PT,PROTHROMBIN TIME [COAG] DAILY 08/20/19 06:00 INR,PT,PROTHROMBIN TIME [COAG] DAILY 08/21/19 06:00 INR,PT,PROTHROMBIN TIME [COAG] DAILY - Assessment Assessment:: 1. Discharge back to the halfway on Levaquin 750 mg every 48 hours for hospital-acquired pneumonia dose by the pharmacy 2. Discussed his care with the halfway.'s been taking lots of high salt tomato juice. I want him a low-sodium diet. And daily weights and to call if his weight increases by 5 pounds 1 week. - Plan Plan:: 1. DC catheter and straight catheter every 6 hours when necessary 2. Stop IV Lasix and start is 80 mg once a day. Now on a low sodium diet with his diabetic diet and will see if he gains weight. 3. Continue the IV antibiotics for his hospital-acquired pneumonia. 4. Anticipate discharge tomorrow or the next day
--- NOTE | 2019-08-18 09:16 | PCM.DCSUM1 ---
Discharge Summary - Hospital Course Free Text/Narrative:: Hospital course-patient was admitted and given 80 of IV Lasix in the ER and a Cohen was placed. He was given 80 IV in afternoon any diuresis well. He was way the next morning but I defer scale and he lost maybe 2 pounds. I put him back on his oral 80 mg a lost 3 pounds and his swelling got better. Since he had a hospital acquired pneumonia and started on cefepime 2 g every 12 hours dosed by the pharmacy. Patient had a little cough at night but he did well. He had no shortness of breath, wheezing, orthopnea, PND and improved. His oxygen stated above 90% although he is tonight. Turns out is been drinking lots of stool tomato juice with lots of salt added. He was put on a low-salt diet a diabetic diet here. Patient still anemic and has some chronic renal failure. He has low ejection fraction CHF. We'll send him back on the same medications with low sodium diet and Levaquin 750 mg every 48 hours dosed by the pharmacy for hospital-acquired pneumonia. Brief History: This is an 84-year-old male patient this at rehabilitation at the care home for CHF, and a broken right femur. He was in the hospital for pneumonia, CHF came back to the hospital for swing bed and broke his arm. Was repaired and he was transferred to [facility]. He said increasing weight of 10 pounds. He has a slight cough. He is alert shortness of breath, no sore throat some nasal congestion. He denies chest pain but he does have leg swelling. He does have a defibrillator in and a pacemaker for atrial fib. He had rectal bleeding a few days ago his Coumadin was stopped was also restart today according to the ER doctor talked to the nurses. I will follow that. Diagnosis: Stroke: No - Discharge Data Discharge Date: 08/18/19 Discharge Disposition: Home, Self-Care 01 Condition: Good - Referral to Home Health Primary Care Physician: Luiz Dunn MD - Discharge Diagnosis/Problem(s) (1) Humerus fracture SNOMED Code(s): 27099878 ICD Code: S42.309A - UNSP FRACTURE OF SHAFT OF HUMERUS, UNSP ARM, INIT Status: Acute Priority: Low Current Visit: Yes Qualifiers: Encounter type: subsequent encounter Humerus Location: shaft Fracture type: closed Fracture alignment: displaced Laterality: right (2) Acute exacerbation of CHF (congestive heart failure) SNOMED Code(s): 308566382, 58868091828957 ICD Code: I50.9 - HEART FAILURE, UNSPECIFIED Status: Acute Current Visit : Yes Qualifiers: Heart failure type: unspecified Qualified Code(s): I50.9 - Heart failure, unspecified (3) Elevated lactic acid level SNOMED Code(s): 3112494 ICD Code: R79.89 - OTHER SPECIFIED ABNORMAL FINDINGS OF BLOOD CHEMISTRY Status: Acute Current Visit: Yes (4) Pneumonia SNOMED Code(s): 945737472 ICD Code: J18.9 - PNEUMONIA, UNSPECIFIED ORGANISM Status: Acute Current Visit: Yes Qualifiers: Pneumonia type: due to unspecified organism Laterality: right Lung location: lower lobe of lung Qualified Code(s): J18.9 - Pneumonia, unspecified organism (5) Anticoagulant long-term use SNOMED Code(s): 197415232 ICD Code: Z79.01 - [employer] (CURRENT) USE OF ANTICOAGULANTS Status: Acute Current Visit: No (6) Diabetes type 2, controlled SNOMED Code(s): 42085321, 230965378 ICD Code: E11.9 - TYPE 2 DIABETES MELLITUS WITHOUT COMPLICATIONS Status: Acute Current Visit: No (7) Hypokalemia SNOMED Code(s): 53989208 ICD Code: E87.6 - HYPOKALEMIA Status: Acute Current Visit: No (8) Obesity SNOMED Code(s): 907027018, 928907715 ICD Code: E66.9 - OBESITY, UNSPECIFIED Status: Acute Current Visit: No Qualifiers: Obesity type: due to excess calories (9) Palliative care status SNOMED Code(s): 966522473 ICD Code: Z51.5 - ENCOUNTER FOR PALLIATIVE CARE Status: Acute Current Visit: No (10) Atrial fibrillation SNOMED Code(s): 74251899 ICD Code: I48.91 - UNSPECIFIED ATRIAL FIBRILLATION Status: Chronic Priority: Low Current Visit: No Qualifiers: Atrial fibrillation type: chronic - Patient Summary/Data Consults: Consultations 08/16/19 10:28 OT Evaluation and Treatment [CONS] Routine Please Evaluate and Treat. OT Reason for Consult: ADL's This query below is only for informational purposes and is not editable. Admission Diagnosis/Problem: Pneumonia PT Evaluation and Treatment [CONS] Routine Please Evaluate and Treat. PT Reason for Consult: Ambulation This query below is only for informational purposes and is not editable. Admission Diagnosis/Problem: Pneumonia 08/17/19 09:18 Consult to Orthopedics [CONS] Routine Consulting Provider: Frank Santiago Call Completed to Consulting Physician: Yes Reason for Consult: Humurs fx - Patient Instructions Diet: Low Sodium, Diabetic Diet Activity: As Tolerated Driving: Do Not Drive Showering/Bathing: May Shower Other/Special Instructions: 1. PT/OT. 2. Daily weights. If he gains more than 5 pounds in a week his primary provider should be contacted. 3. Calmoseptine cream twice a day to skin. 4. Recheck with Dr. Santiago for his broken humerus in 2 weeks. - Discharge Plan Prescriptions/Med Rec: Codeine/guaiFENesin [guaiFENesin-Codeine Syrup] 5 ml PO Q4H PRN #180 ml PRN Reason: Cough Levofloxacin [Levaquin] 750 mg PO Q48H #5 tablet Home Medications: Home Meds Potassium Chloride 20 meq PO DAILY 03/17/14 [History] Amiodarone [Cordarone] 200 mg PO BEDTIME 07/19/15 [History] Furosemide 80 mg PO DAILY 01/25/17 [History] Isosorbide Dinitrate 10 mg PO BID@,16 01/25/17 [History] Carvedilol [Coreg] 6.25 mg PO BEDTIME 05/23/19 [History] Acetaminophen [Tylenol Extra Strength] 1,000 mg PO BID 07/31/19 [History] Alum Hydrox/Mag Hydrox/Simeth [Maalox Advanced] 30 ml PO BID PRN 07/31/19 [ History] Ferrous Sulfate 325 mg PO BEDTIME 07/31/19 [History] Nitroglycerin 0.4 mg SL Q5M PRN 07/31/19 [History] Tamsulosin [Flomax] 0.4 mg PO BEDTIME 07/31/19 [History] Warfarin Sliding Scale [Coumadin Sliding Scale] 1 ea PO ASDIRECTED 07/31/19 [ History] raNITIdine HCl [Zantac] 150 mg PO BEDTIME 07/31/19 [History] Oxymetazoline [Afrin Original 0.05% Nasal [place]] 1 spray BERYL ASDIRECTED PRN #1 bottle 08/12/19 [Rx] Warfarin [Coumadin] 2.5 mg PO DAILY #30 tablet 08/12/19 [Rx] Acetaminophen 650 mg PO Q4HR PRN 08/13/19 [History] glipiZIDE [Glucotrol] 10 mg PO BIDMEALS 08/17/19 [History] Codeine/guaiFENesin [guaiFENesin-Codeine Syrup] 5 ml PO Q4H PRN #180 ml [Rx] Furosemide [Lasix] 80 mg PO DAILY tablet 08/18/19 [Rx] Levofloxacin [Levaquin] 750 mg PO Q48H #5 tablet 08/18/19 [Rx] Patient Handouts: Shoulder Pain, Fall Prevention in Hospitals, Adult, Venous Thromboembolism Prevention, Community-Acquired Pneumonia, Adult, [id number] Forms: ED Department Discharge Referrals: Luiz Dunn MD [Primary Care Provider] - - Discharge Summary/Plan Comment DC Time >30 min.: No - Patient Data Vitals - Most Recent: Last Vital Signs Temp 98.4 F 08/18/19 05:45 Pulse 63 08/18/19 05:45 Resp 18 08/18/19 05:45 BP 123/65 08/18/19 08:26 Pulse Ox 98 08/18/19 05:45 Weight - Most Recent: 210 lb 3.2 oz I&O - Last 24 hours: Intake & Output 08/17/19 08/18/19 08/18/19 22:59 06:59 14:59 Intake Total 970 150 Output Total 1700 225 Balance -730 -75 Lab Results - Last 24 hrs: Laboratory Results - last 24 hr 08/17/19 08/18/19 08/18/19 Range/Units 17:32 06:18 07:53 PT 16.3 H (9.0-11.1) sec INR 1.69 H (1.00-1.24) POC Glucose 119 H 71 L (80-116) mg/dL [facility] Results - Last 24 hrs: Microbiology 08/16/19 07:35 Aerobic Blood Culture - Preliminary Blood - Venous - Lab Draw NO GROWTH AFTER 2 DAYS Anaerobic Blood Culture - Preliminary NO GROWTH AFTER 2 DAYS 08/16/19 07:30 Aerobic Blood Culture - Preliminary Blood - Venous NO GROWTH AFTER 2 DAYS Anaerobic Blood Culture - Preliminary NO GROWTH AFTER 2 DAYS Med Orders - Current: Current Medications Acetaminophen (Tylenol) 650 mg PO Q4H PRN PRN Reason: Pain/Fever Last Admin: 08/18/19 05:51 Dose: 650 mg Acetaminophen (Tylenol Extra Strength) 1,000 mg PO BID [facility] Last Admin: 08/18/19 08:30 Dose: 1,000 mg Al Hydroxide/Mg Hydroxide (Mag-Al Susp) 30 ml PO BID PRN PRN Reason: indigestion Amiodarone HCl (Cordarone) 200 mg PO BEDTIME [facility] Last Admin: 08/17/19 20:06 Dose: 200 mg Carvedilol (Coreg) 6.25 mg PO BEDTIME [facility] Last Admin: 08/17/19 20:06 Dose: 6.25 mg Cefepime HCl (Maxipime) 2 gm IVPUSH Q12H [facility] Last Admin: 08/18/19 08:32 Dose: 2 gm Enoxaparin Sodium (Lovenox) 30 mg SUBCUT Q24H [facility] Last Admin: 08/17/19 11:09 Dose: 30 mg Famotidine (Pepcid) 20 mg PO BEDTIME [facility] Last Admin: 08/17/19 20:07 Dose: 20 mg Ferrous Sulfate (Ferrous Sulfate) 325 mg PO BEDTIME [facility] Last Admin: 08/17/19 20:06 Dose: 325 mg Furosemide (Lasix) 80 mg PO DAILY [facility] Last Admin: 08/18/19 08:30 Dose: 80 mg Glipizide (Glucotrol) 10 mg PO BIDMEALS [facility] Last Admin: 08/18/19 08:26 Dose: 10 mg Guaifenesin/Phenylephrine HCl (Robitussin Dm) 5 ml PO Q4H PRN PRN Reason: Cough Last Admin: 08/18/19 01:18 Dose: 5 ml Isosorbide Dinitrate (Isordil) 10 mg PO BID@0900,1600 [facility] Last Admin: 08/18/19 08:26 Dose: 10 mg Nitroglycerin (Nitrostat) 0.4 mg SL Q5M PRN PRN Reason: Chest Pain Ondansetron HCl (Zofran Odt) 4 mg PO Q4H PRN PRN Reason: nausea, able to take PO Oxymetazoline HCl (Afrin Original 0.05% Nasal [place]) 0 ml BERYL ASDIRECTED PRN PRN Reason: Nosebleed Last Admin: 08/17/19 09:18 Dose: 1 spray Pharmacy Consult (Consult To Pharmacy) 1 each .XX ASDIRECTED [facility] Potassium Chloride (Klor-Con M20) 20 meq PO DAILY [facility] Last Admin: 08/18/19 08:29 Dose: 20 meq Sodium Chloride (Saline Flush) 10 ml FLUSH ASDIRECTED PRN PRN Reason: Keep Vein Open Last Admin: 08/17/19 20:19 Dose: 10 ml Sodium Chloride (Saline Flush) 10 ml FLUSH ASDIRECTED PRN PRN Reason: Keep Vein Open Last Admin: 08/16/19 14:15 Dose: 10 ml Tamsulosin HCl (Flomax) 0.4 mg PO BEDTIME [facility] Last Admin: 08/17/19 20:07 Dose: 0.4 mg Discontinued Medications Acetaminophen/Codeine Phosphate (Tylenol With Codeine No.3 300mg/30mg) 1 tab PO Q6H PRN PRN Reason: Pain Last Admin: 08/16/19 11:00 Dose: 1 tab Albuterol (Proventil Neb Soln) 2.5 mg NEB ONETIME ONE Stop: 08/16/19 07:22 Last Admin: 08/16/19 07:42 Dose: 2.5 mg Cefepime HCl (Maxipime) 2 gm IVPUSH ONETIME ONE Stop: 08/16/19 08:22 Last Admin: 08/16/19 09:35 Dose: 2 gm Furosemide (Lasix) 80 mg IVPUSH NOW ONE Stop: 08/16/19 07:22 Last Admin: 08/16/19 09:11 Dose: 80 mg Furosemide (Lasix) 80 mg IVPUSH NOW ONE Stop: 08/16/19 14:01 Last Admin: 08/16/19 14:06 Dose: 80 mg Glipizide (Glucotrol Xl) 10 mg PO BIDMEALS [facility] Glipizide (Glucotrol Xl) 10 mg PO BIDMEALS [facility] Last Admin: 08/17/19 09:08 Dose: Not Given Isosorbide Dinitrate (Isordil) 10 mg PO BID@,16 [facility] Isosorbide Dinitrate (Isordil) 10 mg PO BID@,16 [facility] Last Admin: 08/17/19 09:55 Dose: Not Given Lidocaine HCl (Glydo) 6 ml .XX ONETIME ONE Stop: 08/16/19 07:29 Last Admin: 08/16/19 08:02 Dose: 6 ml Potassium Chloride (Klor-Con 10) 20 meq PO DAILY [facility] Warfarin Sodium (Coumadin) 2.5 mg PO DAILY@1600 [facility] Warfarin Sodium (Coumadin) 2.5 mg PO DAILY@1600 [facility] Last Admin: 08/16/19 15:25 Dose: 2.5 mg Warfarin Sodium (Coumadin Sliding Scale) 1 each PO ASDIRECTED [facility] Warfarin Sodium (Coumadin) 5 mg PO 1600 [facility] Stop: 08/17/19 16:01 Last Admin: 08/17/19 16:23 Dose: 5 mg
[2019-08-18] MEDS: Enoxaparin 30 MG/0.3 ML Syringe SUBCUT SCH (09:47)
[2019-08-18 10:58] VITALS: PULSE 65
== END 2019-08-18 10:45 | disposition home or self-care (01) | DRG 194 ==
LOC: FB.ED 07:13 → FB.MS 09:51
PROVIDERS: ADMIT Family Medicine; ATTEND Family Medicine
DX: J18.9 Pneumonia, unspecified organism (principal); R74.0 Nonspecific elevation of levels of transaminase and lactic acid dehydrogenase [LDH]; I13.0 Hypertensive heart and chronic kidney disease with heart failure and stage 1 through stage 4 chronic kidney disease, or unspecified chronic kidney disease; I48.0 Paroxysmal atrial fibrillation; I48.20 Chronic atrial fibrillation, unspecified; I42.9 Cardiomyopathy, unspecified; I50.9 Heart failure, unspecified; Z51.5 Encounter for palliative care; Z66 Do not resuscitate; H54.7 Unspecified visual loss; I25.10 Atherosclerotic heart disease of native coronary artery without angina pectoris; E78.00 Pure hypercholesterolemia, unspecified; G47.30 Sleep apnea, unspecified; K21.9 Gastro-esophageal reflux disease without esophagitis; N18.9 Chronic kidney disease, unspecified; E11.9 Type 2 diabetes mellitus without complications; M19.90 Unspecified osteoarthritis, unspecified site; L30.9 Dermatitis, unspecified; Z95.810 Presence of automatic (implantable) cardiac defibrillator; E11.22 Type 2 diabetes mellitus with diabetic chronic kidney disease; E66.9 Obesity, unspecified; R79.89 Other specified abnormal findings of blood chemistry; E87.6 Hypokalemia; E66.09 Other obesity due to excess calories; X58.XXXD Exposure to other specified factors, subsequent encounter; Z99.81 Dependence on supplemental oxygen; Z86.73 Personal history of transient ischemic attack (TIA), and cerebral infarction without residual deficits; Z88.6 Allergy status to analgesic agent; Z88.8 Allergy status to other drugs, medicaments and biological substances; Z88.0 Allergy status to penicillin; Z95.0 Presence of cardiac pacemaker; S42.302D Unspecified fracture of shaft of humerus, left arm, subsequent encounter for fracture with routine healing; Z79.01 Long term (current) use of anticoagulants; Z79.84 Long term (current) use of oral hypoglycemic drugs; Z79.899 Other long term (current) drug therapy; Z95.5 Presence of coronary angioplasty implant and graft; I25.2 Old myocardial infarction; Z90.49 Acquired absence of other specified parts of digestive tract; Z98.890 Other specified postprocedural states
CPT/HCPCS: 36415; 51702; 71045; 80053; 81001; 83605; 83880; 84484; 85025; 85610; 87040 ×2; 87804 ×2; 93005; 96374; 96375; 99285; A9270; J0692; J1940; 36410; 73060-RT; 82962; 97165-GO; 99284; J1650